=== PATIENT | male | born 1970 | race Caucasian/White ===

== ENCOUNTER 2022-08-19 16:12 | Inpatient (IN) | payer OTHER ==
[2022-08-19 16:55] VITALS: BMI 25.1
[2022-08-19] MEDS ORDERED: LIDOCAINE 5% TOPICAL PATCH TP ONE (18:05)
[2022-08-19] MEDS ORDERED: LIDOCAINE 5% TOPICAL PATCH ONE (18:11)
[2022-08-19] MEDS ORDERED: chlordiazePOXIDE HCL 25 MG CAPSULE PO ONE (18:30)
[2022-08-19 18:43] LABS: BASO % 0.9 % (0-2.0); EOS % 0.3 % (0-4.5); HEMATOCRIT 31.4 % (35.4-49); HEMOGLOBIN 10.8 GM/dL (11.7-16.9); LYMPH % 30.2 % (8-40); MCH 35.1 pg (25.7-33.7); MCHC 34.4 g/dl (32.0-35.9); MEAN PLT VOLUME 7.7 fl (7.5-11.1); MONO % 6.7 % (3.8-10.2); NEUT % 61.9 % (42.8-82.8); PLATELET COUNT 262 10^3/uL (134-434); RBC 3.07 M/mm3 (4.00-5.60); WHITE BLOOD COUNT 11.9 K/mm3 (4.0-10.0)
[2022-08-19 18:59] LABS: INR 1.33 (0.83-1.09); PROTHROMBIN TIME (PATIENT) 15.3 SEC (9.7-13.0)
[2022-08-19 19:02] LABS: ACTIVATED PTT 29.7 SECONDS (25.2-36.5)
[2022-08-19 19:02] LABS: CHLORIDE 97 mmol/L (98-107); SODIUM 131 mmol/L (136-145)
[2022-08-19 19:04] LABS: CALCIUM 8.1 mg/dL (8.5-10.1)
[2022-08-19 19:05] LABS: ANION GAP 11 MMOL/L (8-16); BLOOD UREA NITROGEN 15.1 mg/dL (7-18); CO2 23 mmol/L (21-32); GLUCOSE,RANDOM 88 mg/dL (74-106)
[2022-08-19] MEDS ORDERED: FOLIC ACID INJECTION - 1 MG, THIAMINE HCL 100 MG, MULTIVIT INJECTION ADULT 10 ML in SOD... IVPB ONE (19:05)
[2022-08-19 19:07] LABS: BILIRUBIN,DIRECT 15.5 mg/dL (0.0-0.2)
[2022-08-19 19:08] LABS: CREATININE 0.7 mg/dL (0.55-1.3); SGOT/AST 173 U/L (15-37); SGPT/ALT 71 U/L (13-61)
[2022-08-19 19:09] LABS: TOT PROT 5.4 g/dl (6.4-8.2)
[2022-08-19 19:10] LABS: ALK PHOS 380 U/L (45-117)
[2022-08-19 20:12] LABS: LIPASE 223 U/L (73-393)
[2022-08-20 00:06] LABS: ANISOCYTOSIS 1+
[2022-08-20 00:07] LABS: MACROCYTOSIS 1+; PLATELET ESTIMATE NORMAL
[2022-08-20] MEDS ORDERED: diazePAM 5 MG TABLET PO PRN (01:02)
[2022-08-20] MEDS: LIDOCAINE PATCH REMOVAL MC SCH ×2 (01:04→22:37)
[2022-08-20] MEDS ORDERED: SODIUM CHLORIDE 1,000 ML IV SCH (01:30)
[2022-08-20] MEDS ORDERED: LIDOCAINE 5% TOPICAL PATCH ONE (02:17)
[2022-08-20] MEDS: LORazepam 2 MG/ML SDV VIAL IVPUSH SCH ×3 (02:32→10:03)
[2022-08-20 03:14] LABS: SGOT/AST 173 U/L (15-37); SGPT/ALT 69 U/L (13-61)
[2022-08-20 03:15] LABS: TOT PROT 5.3 g/dl (6.4-8.2)
[2022-08-20 03:17] LABS: ALK PHOS 371 U/L (45-117)
[2022-08-20 03:26] LABS: BILIRUBIN,TOTAL 18.1 mg/dL (0.2-1)
[2022-08-20] MEDS ORDERED: diazePAM 5 MG TABLET ONE ×3 (04:06→19:08)
[2022-08-20] MEDS: diazePAM 5 MG TABLET PO SCH ×4 (05:01→23:57)
[2022-08-20] MEDS: HEPARIN NA (PORCINE) 5,000 UNITS/ML 1ML VIAL SQ SCH ×3 (06:02→22:37)
[2022-08-20] MEDS ORDERED: HEPARIN NA (PORCINE) 5,000 UNITS/ML 1ML VIAL ONE ×2 (06:08→14:11)
[2022-08-20 07:20] LABS: CHLORIDE 100 mmol/L (98-107); SODIUM 135 mmol/L (136-145)
[2022-08-20 07:22] LABS: ANION GAP 11 MMOL/L (8-16); CALCIUM 7.7 mg/dL (8.5-10.1); CO2 23 mmol/L (21-32)
[2022-08-20 07:23] LABS: ALBUMIN 1.9 g/dl (3.4-5.0); BLOOD UREA NITROGEN 12.8 mg/dL (7-18); GLUCOSE,RANDOM 79 mg/dL (74-106); HEMOGLOBIN 10.5 GM/dL (11.7-16.9); MCH 35.8 pg (25.7-33.7); MEAN CELL VOLUME 102.3 fl (80-96); MEAN PLT VOLUME 7.8 fl (7.5-11.1); PLATELET COUNT 265 10^3/uL (134-434); RBC 2.93 M/mm3 (4.00-5.60); RDW 16.6 % (11.9-15.9)
[2022-08-20 07:25] LABS: BILIRUBIN,DIRECT 15.2 mg/dL (0.0-0.2); SGPT/ALT 70 U/L (13-61)
[2022-08-20 07:26] LABS: CREATININE 0.6 mg/dL (0.55-1.3); SGOT/AST 163 U/L (15-37)
[2022-08-20 07:27] LABS: TOT PROT 5.1 g/dl (6.4-8.2)
[2022-08-20 07:28] LABS: ALK PHOS 357 U/L (45-117)
[2022-08-20] MEDS ORDERED: KCL 10 MEQ IVPB 10 MEQ/100 ML INFUS.BAG IVPB SCH (07:30)
[2022-08-20 08:07] LABS: BILIRUBIN,TOTAL 18.8 mg/dL (0.2-1)
[2022-08-20] MEDS ORDERED: THIAMINE HCL 100 MG TABLET (FP) ONE (09:57)
[2022-08-20] MEDS ORDERED: FOLIC ACID 1 MG TABLET (FP) ONE (09:58)
[2022-08-20] MEDS ORDERED: FOLIC ACID 1 MG TABLET (FP) PO SCH (10:00)
[2022-08-20] MEDS ORDERED: THIAMINE HCL 100 MG TABLET (FP) PO SCH (10:00)
[2022-08-20] MEDS: POTASSIUM CHLORIDE TABS 20 MEQ TABLET.ER (FP) PO SCH ×2 (10:13→19:07)
[2022-08-20] MEDS ORDERED: LORazepam 2 MG/ML SDV VIAL IVPUSH PRN (10:13)
[2022-08-20] MEDS ORDERED: POTASSIUM CHLORIDE TABS 20 MEQ TABLET.ER (FP) PO ONE ×2 (10:15→19:08)
[2022-08-20 10:27] LABS: ANISOCYTOSIS 1+; MACROCYTOSIS 1+
[2022-08-20 11:20] LABS: INR 1.46 (0.83-1.09); PROTHROMBIN TIME (PATIENT) 16.9 SEC (9.7-13.0)
[2022-08-21] MEDS: diazePAM 5 MG TABLET PO SCH ×3 (05:39→21:23)
[2022-08-21] MEDS: HEPARIN NA (PORCINE) 5,000 UNITS/ML 1ML VIAL SQ SCH ×3 (05:40→21:20)
[2022-08-21 08:32] LABS: INR 1.4 (0.83-1.09); PROTHROMBIN TIME (PATIENT) 16.2 SEC (9.7-13.0)
[2022-08-21 08:33] LABS: ACTIVATED PTT 33.2 SECONDS (25.2-36.5); HEMATOCRIT 25.9 % (35.4-49); HEMOGLOBIN 9.3 GM/dL (11.7-16.9); MCH 36.9 pg (25.7-33.7); MCHC 35.8 g/dl (32.0-35.9); MEAN CELL VOLUME 103.2 fl (80-96); MEAN PLT VOLUME 7.8 fl (7.5-11.1); PLATELET COUNT 242 10^3/uL (134-434); RBC 2.51 M/mm3 (4.00-5.60); RDW 16.2 % (11.9-15.9); WHITE BLOOD COUNT 8.6 K/mm3 (4.0-10.0)
[2022-08-21 08:37] LABS: CHLORIDE 102 mmol/L (98-107); SODIUM 131 mmol/L (136-145)
[2022-08-21 08:39] LABS: CALCIUM 7.6 mg/dL (8.5-10.1)
[2022-08-21 08:40] LABS: ALBUMIN 1.6 g/dl (3.4-5.0); ANION GAP 7 MMOL/L (8-16); BLOOD UREA NITROGEN 8.4 mg/dL (7-18); CO2 23 mmol/L (21-32); GLUCOSE,RANDOM 101 mg/dL (74-106); IRON SERUM 85 ug/dL (50-175); TOTAL IRON BINDING CAPACITY 144 ug/dL (250-450)
[2022-08-21 08:43] LABS: CREATININE 0.5 mg/dL (0.55-1.3); PHOSPHOROUS 1.8 mg/dL (2.5-4.9); SGOT/AST 125 U/L (15-37); SGPT/ALT 59 U/L (13-61)
[2022-08-21 08:44] LABS: TOT PROT 4.4 g/dl (6.4-8.2)
[2022-08-21 08:57] LABS: ALK PHOS 295 U/L (45-117); BILIRUBIN,TOTAL 17.5 mg/dL (0.2-1)
[2022-08-21] MEDS: THIAMINE HCL 200 MG/2 ML VIAL IVPB SCH (09:45)
[2022-08-21] MEDS: MULTIVITAMINS (DAILY MVI) TABLET (FP) PO SCH (09:45)
[2022-08-21] MEDS ORDERED: SODIUM CHLORIDE 1,000 ML IV SCH (12:00)
[2022-08-21] MEDS ORDERED: KCL 10 MEQ IVPB 10 MEQ/100 ML INFUS.BAG IVPB SCH (12:30)
[2022-08-21] MEDS ORDERED: ACETAMINOPHEN 325 MG TABLET (FP) PO PRN (17:12)
[2022-08-21] MEDS: LIDOCAINE PATCH REMOVAL MC SCH (21:20)
[2022-08-21] MEDS ORDERED: POTASSIUM CHLORIDE ORAL LIQUID 20 MEQ/15 ML PO ONE (22:22)
[2022-08-22] MEDS: diazePAM 5 MG TABLET PO SCH ×2 (05:16→17:03)
[2022-08-22] MEDS: HEPARIN NA (PORCINE) 5,000 UNITS/ML 1ML VIAL SQ SCH ×3 (05:17→21:58)
[2022-08-22 09:55] LABS: HEMOGLOBIN 10.6 GM/dL (11.7-16.9); MCH 36.9 pg (25.7-33.7); MCHC 35.4 g/dl (32.0-35.9); MEAN CELL VOLUME 104.1 fl (80-96); PLATELET COUNT 286 10^3/uL (134-434); RBC 2.88 M/mm3 (4.00-5.60); RDW 16.3 % (11.9-15.9); WHITE BLOOD COUNT 10.6 K/mm3 (4.0-10.0)
[2022-08-22 10:14] LABS: CHLORIDE 98 mmol/L (98-107); SODIUM 132 mmol/L (136-145)
[2022-08-22 10:19] LABS: CALCIUM 7.8 mg/dL (8.5-10.1)
[2022-08-22 10:20] LABS: ALBUMIN 1.8 g/dl (3.4-5.0); ANION GAP 12 MMOL/L (8-16); BLOOD UREA NITROGEN 6.2 mg/dL (7-18); CO2 22 mmol/L (21-32); GLUCOSE,RANDOM 83 mg/dL (74-106); MAGNESIUM 2.1 mg/dL (1.8-2.4)
[2022-08-22 10:23] LABS: CREATININE 0.5 mg/dL (0.55-1.3); SGOT/AST 136 U/L (15-37); SGPT/ALT 65 U/L (13-61)
[2022-08-22 10:25] LABS: TOT PROT 5.2 g/dl (6.4-8.2)
[2022-08-22 10:28] LABS: ALK PHOS 326 U/L (45-117); BILIRUBIN,TOTAL 21.5 mg/dL (0.2-1)
[2022-08-22] MEDS: THIAMINE HCL 200 MG/2 ML VIAL IVPB SCH (10:32)
[2022-08-22] MEDS: MULTIVITAMINS (DAILY MVI) TABLET (FP) PO SCH (10:32)
[2022-08-22 10:49] LABS: INR 1.6 (0.83-1.09); PROTHROMBIN TIME (PATIENT) 18.5 SEC (9.7-13.0)
[2022-08-22 10:52] LABS: ANISOCYTOSIS 2+; MACROCYTOSIS 2+
[2022-08-22 14:56] LABS: HIV INTERPRETATION NEGATIVE (NEGATIVE)
[2022-08-22] MEDS ORDERED: ACETYLCYSTEINE INJECTION 20% 12,200 MG in DEXTROSE 5%-WATER - 250 ML IVPB ONE (15:30)
[2022-08-22] MEDS ORDERED: ACETYLCYSTEINE IVPB ONE ×2 (16:30→20:30)
[2022-08-22] MEDS ORDERED: WATER IVPB ONE ×2 (16:30→20:30)
[2022-08-22] MEDS ORDERED: DEXTROSE 5% IVPB ONE ×2 (16:30→20:30)
[2022-08-22] MEDS: LIDOCAINE PATCH REMOVAL MC SCH (21:58)
[2022-08-23] MEDS ORDERED: diazePAM 5 MG TABLET PO ONE (06:00)
[2022-08-23] MEDS: HEPARIN NA (PORCINE) 5,000 UNITS/ML 1ML VIAL SQ SCH ×2 (06:15→14:24)
[2022-08-23 09:01] LABS: HEMATOCRIT 28.5 % (35.4-49); MCH 36.8 pg (25.7-33.7); MEAN CELL VOLUME 105.1 fl (80-96); MEAN PLT VOLUME 8.1 fl (7.5-11.1); PLATELET COUNT 260 10^3/uL (134-434); RBC 2.71 M/mm3 (4.00-5.60); RDW 16.1 % (11.9-15.9); WHITE BLOOD COUNT 9.9 K/mm3 (4.0-10.0)
[2022-08-23 09:18] LABS: CHLORIDE 99 mmol/L (98-107); SODIUM 134 mmol/L (136-145)
[2022-08-23 09:21] LABS: ALBUMIN 1.6 g/dl (3.4-5.0); ANION GAP 13 MMOL/L (8-16); BLOOD UREA NITROGEN 5.9 mg/dL (7-18); CO2 22 mmol/L (21-32); GLUCOSE,RANDOM 76 mg/dL (74-106); MAGNESIUM 2.1 mg/dL (1.8-2.4)
[2022-08-23 09:24] LABS: CREATININE 0.5 mg/dL (0.55-1.3); SGOT/AST 109 U/L (15-37); SGPT/ALT 60 U/L (13-61)
[2022-08-23] MEDS: THIAMINE HCL 200 MG/2 ML VIAL IVPB SCH (09:24)
[2022-08-23] MEDS: MULTIVITAMINS (DAILY MVI) TABLET (FP) PO SCH (09:24)
[2022-08-23 09:25] LABS: TOT PROT 4.7 g/dl (6.4-8.2)
[2022-08-23 09:30] LABS: ALK PHOS 266 U/L (45-117); BILIRUBIN,TOTAL 18.4 mg/dL (0.2-1)
[2022-08-23 09:51] LABS: INR 1.91 (0.83-1.09); PROTHROMBIN TIME (PATIENT) 22.1 SEC (9.7-13.0)
[2022-08-23] MEDS ORDERED: POTASSIUM CHLORIDE TABS 20 MEQ TABLET.ER (FP) PO ONE ×3 (10:06→15:00)
[2022-08-23 10:28] LABS: ANISOCYTOSIS 2+; MACROCYTOSIS 2+
[2022-08-23] MEDS ORDERED: PHYTONADIONE 10 MG/1 ML AMP IVPB ONE (13:40)
[2022-08-23] MEDS ORDERED: SIMETHICONE 80 MG TAB.CHEW (FP) PO PRN (13:56)
[2022-08-23] MEDS ORDERED: LORazepam 2 MG/ML SDV VIAL IVPUSH PRN (17:01)
[2022-08-23 18:52] LABS: HEPATITIS B SURFACE AG CONFIRM CONFIRMED (NONREACTIVE)
[2022-08-23] MEDS: IBUPROFEN 600 MG TABLET (FP) PO PRN (20:52)
[2022-08-23] MEDS ORDERED: LIDOCAINE PATCH REMOVAL MC SCH (22:00)
[2022-08-24 08:20] LABS: INR 1.55 (0.83-1.09); PROTHROMBIN TIME (PATIENT) 17.9 SEC (9.7-13.0)
[2022-08-24 08:26] LABS: HEMATOCRIT 28.7 % (35.4-49); HEMOGLOBIN 9.9 GM/dL (11.7-16.9); MCH 37.3 pg (25.7-33.7); MCHC 34.5 g/dl (32.0-35.9); MEAN CELL VOLUME 107.9 fl (80-96); MEAN PLT VOLUME 7.6 fl (7.5-11.1); PLATELET COUNT 255 10^3/uL (134-434); RBC 2.66 M/mm3 (4.00-5.60); RDW 16.2 % (11.9-15.9); WHITE BLOOD COUNT 8.6 K/mm3 (4.0-10.0)
[2022-08-24 08:28] LABS: CHLORIDE 103 mmol/L (98-107); SODIUM 135 mmol/L (136-145)
[2022-08-24 08:30] LABS: ALBUMIN 1.5 g/dl (3.4-5.0)
[2022-08-24 08:33] LABS: CALCIUM 7.7 mg/dL (8.5-10.1)
[2022-08-24 08:34] LABS: ALBUMIN 1.5 g/dl (3.4-5.0); ANION GAP 8 MMOL/L (8-16); BILIRUBIN,DIRECT 13.8 mg/dL (0.0-0.2); BLOOD UREA NITROGEN 10.2 mg/dL (7-18); CO2 25 mmol/L (21-32); GLUCOSE,RANDOM 96 mg/dL (74-106); MAGNESIUM 2.1 mg/dL (1.8-2.4); SGOT/AST 102 U/L (15-37); SGPT/ALT 57 U/L (13-61)
[2022-08-24 08:36] LABS: TOT PROT 4.5 g/dl (6.4-8.2)
[2022-08-24 08:37] LABS: ALK PHOS 245 U/L (45-117); CREATININE 0.6 mg/dL (0.55-1.3); SGOT/AST 104 U/L (15-37); SGPT/ALT 59 U/L (13-61)
[2022-08-24 08:38] LABS: TOT PROT 4.6 g/dl (6.4-8.2)
[2022-08-24 08:39] LABS: ALK PHOS 251 U/L (45-117)
[2022-08-24 08:43] LABS: BILIRUBIN,TOTAL 17.2 mg/dL (0.2-1)
[2022-08-24 09:34] LABS: ANISOCYTOSIS 2+; MACROCYTOSIS 2+; TARGET CELLS 1+
[2022-08-24 09:47] LABS: COCAINE, UR NEGATIVE (NEGATIVE); METHADONE, UR NEGATIVE (NEGATIVE); OPIATES, URI NEGATIVE (NEGATIVE); PHENCYCLIDINE,URINE NEGATIVE (NEGATIVE); URINE AMPHETAMINES NEGATIVE (NEGATIVE); URINE BARBITURATES NEGATIVE (NEGATIVE)
[2022-08-24 09:49] LABS: URINE BENZODIAZEPINES POSITIVE (NEGATIVE)
[2022-08-24] MEDS: THIAMINE HCL 200 MG/2 ML VIAL IVPB SCH (10:00)
[2022-08-24] MEDS: MULTIVITAMINS (DAILY MVI) TABLET (FP) PO SCH (10:05)
[2022-08-24] MEDS: METOCLOPRAMIDE HCL 10 MG TABLET (FP) PO SCH ×2 (15:32→21:51)
[2022-08-24] MEDS: IBUPROFEN 600 MG TABLET (FP) PO PRN (15:32)
[2022-08-24 16:03] VITALS: RESP 18
[2022-08-24 17:59] LABS: BF WBC & OTHER NUCLEATED CELLS 117 /mm3
[2022-08-24 18:24] LABS: BODY FLUID MACROPHAGES 7 %; BODY FLUID MESOTHELIAL 2 %; BODY FLUID MONOCYTE 29 %
[2022-08-24] MEDS: SPIRONOLACTONE 25 MG TABLET PO SCH (21:51)
[2022-08-25] MEDS: METOCLOPRAMIDE HCL 10 MG TABLET (FP) PO SCH (06:31)
[2022-08-25] MEDS: SPIRONOLACTONE 25 MG TABLET PO SCH ×2 (09:46→21:18)
[2022-08-25] MEDS: MULTIVITAMINS (DAILY MVI) TABLET (FP) PO SCH (09:47)
[2022-08-25] MEDS: ENOXAPARIN NA (PORCINE) 40 MG/0.4 ML DISP.SYRIN SQ SCH (09:48)
[2022-08-25] MEDS: THIAMINE HCL 200 MG/2 ML VIAL IVPB SCH (09:50)
[2022-08-25] MEDS: POLYETHYLENE GLYCOL (HEALTHYLAX) 3350 17 GM PACKET PO SCH ×2 (11:40→21:17)
[2022-08-25 12:22] LABS: HEMATOCRIT 33.6 % (35.4-49); HEMOGLOBIN 11.6 GM/dL (11.7-16.9); MCH 37.2 pg (25.7-33.7); MCHC 34.5 g/dl (32.0-35.9); MEAN CELL VOLUME 107.8 fl (80-96); MEAN PLT VOLUME 7.7 fl (7.5-11.1); PLATELET COUNT 359 10^3/uL (134-434); RBC 3.12 M/mm3 (4.00-5.60); RDW 15.7 % (11.9-15.9); WHITE BLOOD COUNT 10.6 K/mm3 (4.0-10.0)
[2022-08-25 12:25] LABS: INR 1.59 (0.83-1.09); PROTHROMBIN TIME (PATIENT) 18.4 SEC (9.7-13.0)
[2022-08-25 12:41] LABS: CHLORIDE 100 mmol/L (98-107); SODIUM 134 mmol/L (136-145)
[2022-08-25 12:44] LABS: ALBUMIN 1.8 g/dl (3.4-5.0); ANION GAP 11 MMOL/L (8-16); BLOOD UREA NITROGEN 12.2 mg/dL (7-18); CO2 23 mmol/L (21-32); GLUCOSE,RANDOM 98 mg/dL (74-106)
[2022-08-25 12:47] LABS: BILIRUBIN,DIRECT 14.5 mg/dL (0.0-0.2); CREATININE 0.6 mg/dL (0.55-1.3); SGOT/AST 129 U/L (15-37); SGPT/ALT 70 U/L (13-61)
[2022-08-25 12:49] LABS: TOT PROT 5.6 g/dl (6.4-8.2)
[2022-08-25 12:50] LABS: ALK PHOS 295 U/L (45-117); BILIRUBIN,TOTAL 17.5 mg/dL (0.2-1)
[2022-08-25 12:53] LABS: ANISOCYTOSIS 2+; MACROCYTOSIS 2+
[2022-08-25] MEDS: PrednisoLONE 15 MG/5 ML UNIT-DOSE CUP PO SCH (17:11)
[2022-08-26] MEDS ORDERED: LORazepam 2 MG/ML SDV VIAL IVPUSH ONE (00:12)
[2022-08-26] MEDS: POLYETHYLENE GLYCOL (HEALTHYLAX) 3350 17 GM PACKET PO SCH (09:43)
[2022-08-26] MEDS: MULTIVITAMINS (DAILY MVI) TABLET (FP) PO SCH (09:43)
[2022-08-26] MEDS: ENOXAPARIN NA (PORCINE) 40 MG/0.4 ML DISP.SYRIN SQ SCH (09:43)
[2022-08-26] MEDS: SPIRONOLACTONE 25 MG TABLET PO SCH (09:43)
[2022-08-26 09:44] LABS: HEMATOCRIT 31.9 % (35.4-49); MCH 37.2 pg (25.7-33.7); MCHC 34.5 g/dl (32.0-35.9); MEAN CELL VOLUME 107.9 fl (80-96); MEAN PLT VOLUME 7.9 fl (7.5-11.1); PLATELET COUNT 351 10^3/uL (134-434); RBC 2.95 M/mm3 (4.00-5.60); RDW 15.7 % (11.9-15.9); WHITE BLOOD COUNT 12.6 K/mm3 (4.0-10.0)
[2022-08-26] MEDS: THIAMINE HCL 200 MG/2 ML VIAL IVPB SCH (09:44)
[2022-08-26] MEDS: PrednisoLONE 15 MG/5 ML UNIT-DOSE CUP PO SCH (09:44)
[2022-08-26 09:47] LABS: INR 1.57 (0.83-1.09); PROTHROMBIN TIME (PATIENT) 18.1 SEC (9.7-13.0)
[2022-08-26 09:50] VITALS: PULSE 91; TEMP 98.6
[2022-08-26] MEDS ORDERED: predniSONE 20 MG TABLET (UD) PO SCH (10:00)
[2022-08-26 10:45] LABS: BLOOD UREA NITROGEN 11.8 mg/dL (7-18)
[2022-08-26 10:46] LABS: ALBUMIN 1.8 g/dl (3.4-5.0)
[2022-08-26 10:50] LABS: BILIRUBIN,TOTAL 14.7 mg/dL (0.2-1); TOT PROT 5.7 g/dl (6.4-8.2)
[2022-08-26 10:51] LABS: CREATININE 0.5 mg/dL (0.55-1.3)
[2022-08-26 14:07] LABS: BODY FLUID ALBUMIN 0.4 g/dL (Not Estab.)
[2022-08-26 15:02] VITALS: BP 135/75
== END 2022-08-26 13:15 | disposition short-term general hospital (02) | DRG 264 ==
LOC: JER 16:12 → JERBED 19:48 → J4S 08-20 20:03 → J7W 08-23 15:10
PROVIDERS: ADMIT Internal Medicine; ATTEND Internal Medicine
PROC: HZ2ZZZZ Detoxification Services for Substance Abuse Treatment (ICD-10-PCS; principal; 2022-08-24)
PROC: 0W9G3ZX Drainage of Peritoneal Cavity, Percutaneous Approach, Diagnostic (ICD-10-PCS; 2022-08-24)
DX: K70.11 Alcoholic hepatitis with ascites (principal); K70.31 Alcoholic cirrhosis of liver with ascites; I44.7 Left bundle-branch block, unspecified; F10.239 Alcohol dependence with withdrawal, unspecified; K80.20 Calculus of gallbladder without cholecystitis without obstruction; I10 Essential (primary) hypertension; E78.5 Hyperlipidemia, unspecified; K76.82 Hepatic encephalopathy; F39 Unspecified mood [affective] disorder; D64.9 Anemia, unspecified; R00.0 Tachycardia, unspecified; R91.1 Solitary pulmonary nodule
CPT/HCPCS: 0241U-QW; 36415; 70450-TC; 71046-TC-FY; 72125-TC; 72170-TC-FY; 74178-TC; 76705-TC; 76942-TC; 80048; 80053; 80076; 80307; 82042; 82105; 82140; 82150; 82248; 82465; 82607; 82728; 82746; 82945; 83540; 83550; 83615; 83690; 83735; 83986; 84100; 84157; 84478; 84484; 85025; 85027; 85610; 85730; 86140; 86704; 86705; 86707; 86709; 86803; 87040; 87070; 87075; 87102; 87116; 87205; 87206; 87210; 87340; 87350; 87389; 87516; 87517; 88108; 88305-TC; 93005; 93010; 93306-TC; 99285-25; C9803-CS; J1644; Q9967; U0003; U0005

== ENCOUNTER 2023-01-25 19:06 | Observation (INO) | payer OTHER ==
[2023-01-25] MEDS ORDERED: MAG HYDROX/AL HYDROX/SIMETH 30 ML UNIT-DOSE CUP PO ONE (20:38)
[2023-01-25] MEDS ORDERED: FAMOTIDINE 20 MG/50 ML IVPB 20 MG/50 ML MG IVPB ONE ×2 (20:38→21:06)
[2023-01-25] MEDS ORDERED: FOLIC ACID INJECTION - 1 MG, THIAMINE HCL 100 MG, MULTIVIT INJECTION ADULT 10 ML in SOD... IVPB ONE (20:40)
[2023-01-25] MEDS ORDERED: MAG HYDROX/AL HYDROX/SIMETH 30 ML UNIT-DOSE CUP ONE (21:06)
[2023-01-25 21:12] LABS: BASO % 1.2 % (0-2.0); EOS % 1.3 % (0-4.5); HEMATOCRIT 45.7 % (35.4-49); HEMOGLOBIN 15.5 GM/dL (11.7-16.9); LYMPH % 40.5 % (8-40); MCH 32.1 pg (25.7-33.7); MCHC 33.8 g/dl (32.0-35.9); MEAN CELL VOLUME 94.9 fl (80-96); MEAN PLT VOLUME 6.8 fl (7.5-11.1); MONO % 8.2 % (3.8-10.2); NEUT % 48.8 % (42.8-82.8); PLATELET COUNT 216 10^3/uL (134-434); RBC 4.82 M/mm3 (4.00-5.60)
[2023-01-25 21:27] LABS: INR 1.17 (0.83-1.09); PROTHROMBIN TIME (PATIENT) 13.5 SEC (9.7-13.0)
[2023-01-25 21:30] LABS: ACTIVATED PTT 32.3 SECONDS (25.2-36.5)
[2023-01-25 21:41] LABS: POTASSIUM 3.4 mmol/L (3.5-5.1)
[2023-01-25 21:44] LABS: ALBUMIN 2.3 g/dl (3.4-5.0); BLOOD UREA NITROGEN 4.4 mg/dL (7-18); CALCIUM 8.3 mg/dL (8.5-10.1); MAGNESIUM 1.9 mg/dL (1.8-2.4)
[2023-01-25 21:47] LABS: CREATININE 0.7 mg/dL (0.55-1.3); PHOSPHOROUS 3.5 mg/dL (2.5-4.9)
[2023-01-25 21:49] LABS: BILIRUBIN,TOTAL 0.7 mg/dL (0.2-1); TOT PROT 6.8 g/dl (6.4-8.2)
[2023-01-25 22:35] LABS: URINE APPEARANCE CLEAR; URINE BILIRUBIN NEGATIVE (NEGATIVE); URINE COLOR YELLOW; URINE GLUCOSE (UA) NEGATIVE (NEGATIVE); URINE KETONE NEGATIVE (NEGATIVE); URINE LEUK ESTERASE NEGATIVE (NEGATIVE); URINE NITRITE NEGATIVE (NEGATIVE); URINE PROTEIN NEGATIVE (NEGATIVE)
[2023-01-25] MEDS ORDERED: LORazepam 1 MG TABLET PO PRN (23:52)
[2023-01-25] MEDS ORDERED: ACETAMINOPHEN 325 MG TABLET (FP) PO PRN (23:54)
[2023-01-26] MEDS ORDERED: POTASSIUM CHLORIDE TABS 20 MEQ TABLET.ER (FP) PO ONE (00:48)
[2023-01-26] MEDS ORDERED: FUROSEMIDE 40 MG/4 ML INJECTABLE VIAL IVPUSH ONE (01:25)
[2023-01-26 03:50] VITALS: BMI 25.2
[2023-01-26 08:46] LABS: OPIATES, URI NEGATIVE (NEGATIVE); PHENCYCLIDINE,URINE NEGATIVE (NEGATIVE); URINE BARBITURATES NEGATIVE (NEGATIVE)
[2023-01-26 08:48] LABS: URINE AMPHETAMINES NEGATIVE (NEGATIVE); URINE BENZODIAZEPINES NEGATIVE (NEGATIVE)
[2023-01-26 08:50] LABS: COCAINE, UR NEGATIVE (NEGATIVE); METHADONE, UR NEGATIVE (NEGATIVE)
[2023-01-26] MEDS: FOLIC ACID 1 MG TABLET (FP) PO SCH (09:16)
[2023-01-26] MEDS: FUROSEMIDE 40 MG TABLET (FP) PO SCH (09:16)
[2023-01-26] MEDS: NICOTINE 14 MG/24 HOURS TOPICAL PATCH TD SCH (09:16)
[2023-01-26] MEDS: THIAMINE HCL 100 MG TABLET (FP) PO SCH (09:16)
[2023-01-26] MEDS: SPIRONOLACTONE 25 MG TABLET PO SCH (09:16)
[2023-01-26 10:12] LABS: HEMATOCRIT 45.2 % (35.4-49); HEMOGLOBIN 15.2 GM/dL (11.7-16.9); MCHC 33.6 g/dl (32.0-35.9); MEAN CELL VOLUME 95.3 fl (80-96); MEAN PLT VOLUME 6.7 fl (7.5-11.1); PLATELET COUNT 190 10^3/uL (134-434); RBC 4.74 M/mm3 (4.00-5.60); RDW 15.8 % (11.9-15.9); WHITE BLOOD COUNT 4.7 K/mm3 (4.0-10.0)
[2023-01-26 10:15] LABS: INR 1.19 (0.83-1.09); PROTHROMBIN TIME (PATIENT) 13.8 SEC (9.7-13.0)
[2023-01-26 10:42] LABS: POTASSIUM 3.8 mmol/L (3.5-5.1)
[2023-01-26 10:46] LABS: CALCIUM 8.2 mg/dL (8.5-10.1)
[2023-01-26 10:49] LABS: ALBUMIN 2.1 g/dl (3.4-5.0); MAGNESIUM 1.8 mg/dL (1.8-2.4)
[2023-01-26 10:51] LABS: CREATININE 0.7 mg/dL (0.55-1.3); PHOSPHOROUS 3.7 mg/dL (2.5-4.9); TOT PROT 6.5 g/dl (6.4-8.2)
[2023-01-26 13:39] LABS: BF WBC & OTHER NUCLEATED CELLS 297 /mm3
[2023-01-26 14:13] LABS: BODY FLUID MACROPHAGES 20 %
[2023-01-26] MEDS: ALBUMIN HUMAN 25% 100 ML VIAL IV SCH ×2 (14:54→16:12)
[2023-01-26 15:37] VITALS: RESP 18
[2023-01-27 06:57] VITALS: TEMP 98.7
[2023-01-27] MEDS ORDERED: IBUPROFEN 600 MG TABLET (FP) PO PRN (07:42)
[2023-01-27 09:51] LABS: BASO % 0.6 % (0-2.0); EOS % 2.2 % (0-4.5); HEMATOCRIT 45.2 % (35.4-49); HEMOGLOBIN 15.4 GM/dL (11.7-16.9); LYMPH % 33.5 % (8-40); MCH 32.2 pg (25.7-33.7); MCHC 34.1 g/dl (32.0-35.9); MEAN CELL VOLUME 94.4 fl (80-96); MEAN PLT VOLUME 6.9 fl (7.5-11.1); MONO % 7.6 % (3.8-10.2); NEUT % 56.1 % (42.8-82.8); PLATELET COUNT 166 10^3/uL (134-434); RBC 4.79 M/mm3 (4.00-5.60); RDW 15.7 % (11.9-15.9); WHITE BLOOD COUNT 4.2 K/mm3 (4.0-10.0)
[2023-01-27] MEDS ORDERED: CEFTRIAXONE 1 GM in DEXTROSE 5%-WATER - 50 ML IVPB SCH (10:00)
[2023-01-27 10:07] LABS: POTASSIUM 3.8 mmol/L (3.5-5.1)
[2023-01-27 10:08] LABS: BLOOD UREA NITROGEN 8.9 mg/dL (7-18); CALCIUM 8.6 mg/dL (8.5-10.1); MAGNESIUM 1.7 mg/dL (1.8-2.4)
[2023-01-27] MEDS: THIAMINE HCL 100 MG TABLET (FP) PO SCH (10:08)
[2023-01-27] MEDS: NICOTINE 14 MG/24 HOURS TOPICAL PATCH TD SCH (10:08)
[2023-01-27] MEDS: FOLIC ACID 1 MG TABLET (FP) PO SCH (10:08)
[2023-01-27 10:12] LABS: BILIRUBIN,TOTAL 1.2 mg/dL (0.2-1); CREATININE 0.7 mg/dL (0.55-1.3); PHOSPHOROUS 3.6 mg/dL (2.5-4.9); TOT PROT 6.4 g/dl (6.4-8.2)
[2023-01-27 10:15] LABS: ALBUMIN 2.8 g/dl (3.4-5.0)
[2023-01-27] MEDS: SPIRONOLACTONE 25 MG TABLET PO SCH (10:23)
[2023-01-27] MEDS: FUROSEMIDE 40 MG TABLET (FP) PO SCH (10:23)
[2023-01-27] MEDS ORDERED: MAGNESIUM SULF 50% (8.12 MEQ/2 ML-1 GM VIAL) IVPB ONE (10:26)
[2023-01-27 12:58] VITALS: BP 98/61; PULSE 82
[2023-01-27 14:08] LABS: BODY FLUID ALBUMIN 0.8 g/dL (Not Estab.)
== END 2023-01-27 14:13 | disposition home or self-care (01) ==
LOC: JER 19:06 → JERBED 23:26 → J5S 01-26 01:57
PROVIDERS: ADMIT Internal Medicine; ATTEND Internal Medicine
PROC: 0W9G3ZZ Drainage of Peritoneal Cavity, Percutaneous Approach (ICD-10-PCS; principal; 2023-01-25)
PROC: 3E03329 Introduction of Other Anti-infective into Peripheral Vein, Percutaneous Approach (ICD-10-PCS; 2023-01-25)
PROC: 3E033GC Introduction of Other Therapeutic Substance into Peripheral Vein, Percutaneous Approach (ICD-10-PCS; 2023-01-25)
PROC: 3E023GC Introduction of Other Therapeutic Substance into Muscle, Percutaneous Approach (ICD-10-PCS; 2023-01-25)
DX: R18.8 Other ascites (principal); R14.0 Abdominal distension (gaseous); K74.60 Unspecified cirrhosis of liver; F10.10 Alcohol abuse, uncomplicated; F17.210 Nicotine dependence, cigarettes, uncomplicated; Z91.199 Patient's noncompliance with other medical treatment and regimen due to unspecified reason
CPT/HCPCS: 36415; 74177-TC; 76942-TC; 80053; 80307; 81003; 82042; 82140; 82150; 82550; 82945; 82977; 83605; 83615; 83690; 83735; 83986; 84100; 84157; 84478; 85025; 85027; 85610; 85730; 86850; 86900; 86901; 87070; 87075; 87086; 87102; 87116; 87205; 87206; 87210; 87516; 88108; 88305-TC; 93005; 93010; 96365; 96367; 96375; 97116-GP; 97162-GP; 99285-25; G0378; Q9967

== ENCOUNTER 2023-04-05 20:54 | Emergency (ER) | payer OTHER ==
[2023-04-05 21:06] VITALS: BP 153/100; PULSE 130; TEMP 99.8; BMI 22.3
== END 2023-04-05 22:12 | disposition left against medical advice (07) ==
LOC: JER 20:54
DX: F10.129 Alcohol abuse with intoxication, unspecified (principal); K76.9 Liver disease, unspecified
CPT/HCPCS: 99281-25

== ENCOUNTER 2023-04-06 18:39 | Emergency (ER) | payer OTHER ==
[2023-04-06 19:02] VITALS: BP 128/76; PULSE 94; RESP 18; TEMP 98.1; BMI 26.1
[2023-04-06 21:30] LABS: URINE APPEARANCE CLEAR; URINE BILIRUBIN NEGATIVE (NEGATIVE); URINE COLOR YELLOW; URINE GLUCOSE (UA) NEGATIVE (NEGATIVE); URINE KETONE NEGATIVE (NEGATIVE); URINE LEUK ESTERASE NEGATIVE (NEGATIVE); URINE NITRITE NEGATIVE (NEGATIVE); URINE PROTEIN NEGATIVE (NEGATIVE)
[2023-04-06 21:46] LABS: POTASSIUM 3.4 mmol/L (3.5-5.1)
[2023-04-06 21:48] LABS: CALCIUM 8.1 mg/dL (8.5-10.1)
[2023-04-06 21:49] LABS: ALBUMIN 2.9 g/dl (3.4-5.0); BLOOD UREA NITROGEN 3.4 mg/dL (7-18); MAGNESIUM 1.8 mg/dL (1.8-2.4)
[2023-04-06 21:51] LABS: BASO % 1.1 % (0-2.0); EOS % 0.8 % (0-4.5); HEMOGLOBIN 15.7 GM/dL (11.7-16.9); LYMPH % 46.7 % (8-40); MCH 32.4 pg (25.7-33.7); MCHC 34.2 g/dl (32.0-35.9); MEAN CELL VOLUME 94.9 fl (80-96); MEAN PLT VOLUME 6.5 fl (7.5-11.1); MONO % 8.2 % (3.8-10.2); NEUT % 43.2 % (42.8-82.8); PLATELET COUNT 141 10^3/uL (134-434); RBC 4.84 M/mm3 (4.00-5.60); RDW 14.8 % (11.9-15.9)
[2023-04-06 21:52] LABS: CREATININE 0.6 mg/dL (0.55-1.3)
[2023-04-06 21:53] LABS: BILIRUBIN,TOTAL 0.8 mg/dL (0.2-1); TOT PROT 6.7 g/dl (6.4-8.2)
[2023-04-06] MEDS ORDERED: chlordiazePOXIDE HCL 25 MG CAPSULE PO ONE (22:23)
[2023-04-06] MEDS ORDERED: chlordiazePOXIDE HCL 25 MG CAPSULE ONE (22:34)
== END 2023-04-06 22:44 | disposition home or self-care (01) ==
LOC: JER 18:39
DX: F10.239 Alcohol dependence with withdrawal, unspecified (principal); R10.84 Generalized abdominal pain; R30.0 Dysuria; Y90.7 Blood alcohol level of 200-239 mg/100 ml; Z20.822 Contact with and (suspected) exposure to COVID-19
CPT/HCPCS: 0241U-QW; 36415; 80053; 80307; 81003; 83690; 83735; 85025; 87086; 99283-25

== ENCOUNTER 2023-04-06 23:14 | Inpatient (IN) | payer OTHER ==
[2023-04-07 02:13] VITALS: BMI 21.2
[2023-04-07] MEDS ORDERED: BENZOCAINE/MENTHOL (CHLORASEPTIC ) LOZENGE MM PRN (07:18)
[2023-04-07] MEDS ORDERED: POLYETHYLENE GLYCOL (HEALTHYLAX) 3350 17 GM PACKET PO PRN (07:18)
[2023-04-07] MEDS ORDERED: IBUPROFEN 400 MG TABLET (FP) PO PRN (07:18)
[2023-04-07] MEDS ORDERED: NALOXONE HCL (KLOXXADO) 8 MG SPRAY NS PRN (07:18)
[2023-04-07] MEDS ORDERED: NALOXONE HCL 0.4 MG/ML VIAL IM PRN (07:18)
[2023-04-07] MEDS ORDERED: METHOCARBAMOL 500 MG TABLET PO PRN (07:18)
[2023-04-07] MEDS ORDERED: MAGNESIUM HYDROX 2400MG/30ML ORAL SUSPENSION 30 ML CUP PO PRN (07:18)
[2023-04-07] MEDS ORDERED: ONDANSETRON *ODT* 4 MG TABLET SL PRN (07:18)
[2023-04-07] MEDS ORDERED: guaiFENesin 600 MG TABLET.ER (FP) PO PRN (07:18)
[2023-04-07] MEDS ORDERED: IBUPROFEN 600 MG TABLET (FP) PO PRN (07:18)
[2023-04-07] MEDS ORDERED: BENZONATATE 200 MG CAPSULE PO PRN (07:18)
[2023-04-07] MEDS ORDERED: DICYCLOMINE HCL 10 MG CAPSULE PO PRN (07:18)
[2023-04-07] MEDS ORDERED: BISMUTH SUBSALICYLATE 524 MG/30 ML PO PRN (07:18)
[2023-04-07] MEDS ORDERED: MAG HYDROX/AL HYDROX/SIMETH 30 ML UNIT-DOSE CUP PO PRN (07:18)
[2023-04-07] MEDS ORDERED: LOPERAMIDE HCL 2 MG CAPSULE PO PRN (07:18)
[2023-04-07] MEDS ORDERED: NICOTINE POLACRILEX 2 MG GUM BUC PRN (07:18)
[2023-04-07] MEDS ORDERED: ACETAMINOPHEN 325 MG TABLET (FP) PO PRN (07:18)
[2023-04-07] MEDS ORDERED: LORazepam 1 MG TABLET PO PRN (07:23)
[2023-04-07] MEDS ORDERED: LORazepam 1 MG TABLET ONE (07:39)
[2023-04-07] MEDS: NICOTINE 21 MG/24 HOURS TOPICAL PATCH TD SCH (10:45)
[2023-04-07] MEDS: PRENATAL VITAMINS W/ FOLIC ACID TABLET (FP) PO SCH (10:45)
[2023-04-07] MEDS: LORazepam 2 MG TABLET PO SCH ×3 (10:45→22:55)
[2023-04-07] MEDS ORDERED: NICOTINE 21 MG/24 HOURS TOPICAL PATCH ONE (10:47)
[2023-04-07] MEDS ORDERED: PRENATAL VITAMINS W/ FOLIC ACID TABLET (FP) PO ONE (10:48)
[2023-04-07] MEDS ORDERED: LORazepam 2 MG TABLET ONE (10:48)
[2023-04-07] MEDS: PATIENT'S OWN MEDICATION (NON-FORMULARY) (Tenofovir Alafenamide 25 MG Tablet) PO SCH (20:17)
[2023-04-07] MEDS: MELATONIN 5 MG TABLETS PO SCH (22:54)
[2023-04-07] MEDS: THIAMINE HCL 100 MG TABLET (FP) PO SCH (22:55)
[2023-04-08] MEDS: LORazepam 2 MG TABLET PO SCH ×4 (06:00→22:23)
[2023-04-08 09:43] LABS: POTASSIUM 3.6 mmol/L (3.5-5.1)
[2023-04-08 09:45] LABS: HEMATOCRIT 47.9 % (35.4-49); HEMOGLOBIN 15.8 GM/dL (11.7-16.9); MCH 32.1 pg (25.7-33.7); MEAN CELL VOLUME 97.4 fl (80-96); PLATELET COUNT 130 10^3/uL (134-434); RBC 4.92 M/mm3 (4.00-5.60); RDW 14.8 % (11.9-15.9); WHITE BLOOD COUNT 5.3 K/mm3 (4.0-10.0)
[2023-04-08 10:01] LABS: ALBUMIN 3.2 g/dl (3.4-5.0)
[2023-04-08 10:03] LABS: BILIRUBIN,TOTAL 1.8 mg/dL (0.2-1); CALCIUM 8.4 mg/dL (8.5-10.1); TOT PROT 7.1 g/dl (6.4-8.2)
[2023-04-08 10:04] LABS: CREATININE 0.8 mg/dL (0.55-1.3)
[2023-04-08] MEDS: FOLIC ACID 1 MG TABLET (FP) PO SCH (10:29)
[2023-04-08] MEDS: PRENATAL VITAMINS W/ FOLIC ACID TABLET (FP) PO SCH (10:30)
[2023-04-08] MEDS: NICOTINE 21 MG/24 HOURS TOPICAL PATCH TD SCH (10:30)
[2023-04-08] MEDS: FUROSEMIDE 20 MG TABLET (FP) PO SCH (11:09)
[2023-04-08] MEDS: PATIENT'S OWN MEDICATION (NON-FORMULARY) (Tenofovir Alafenamide 25 MG Tablet) PO SCH (11:29)
[2023-04-08] MEDS ORDERED: SPIRONOLACTONE 25 MG TABLET PO SCH (22:00)
[2023-04-08] MEDS: MELATONIN 5 MG TABLETS PO SCH (22:22)
[2023-04-08] MEDS: THIAMINE HCL 100 MG TABLET (FP) PO SCH (22:23)
[2023-04-09] MEDS: LORazepam 1 MG TABLET PO SCH ×2 (05:55→10:31)
[2023-04-09 09:04] VITALS: RESP 18
[2023-04-09] MEDS ORDERED: CIPROFLOXACIN 500 MG TABLET (RESTRICTED TO ID) PO SCH (09:15)
[2023-04-09] MEDS: PRENATAL VITAMINS W/ FOLIC ACID TABLET (FP) PO SCH (10:28)
[2023-04-09] MEDS: FUROSEMIDE 20 MG TABLET (FP) PO SCH (10:28)
[2023-04-09] MEDS: PATIENT'S OWN MEDICATION (NON-FORMULARY) (Tenofovir Alafenamide 25 MG Tablet) PO SCH (10:28)
[2023-04-09] MEDS: NICOTINE 21 MG/24 HOURS TOPICAL PATCH TD SCH (10:28)
[2023-04-09] MEDS: FOLIC ACID 1 MG TABLET (FP) PO SCH (10:29)
[2023-04-09 12:59] VITALS: BP 105/67; PULSE 93; TEMP 96.9
[2023-04-10] MEDS ORDERED: LORazepam 0.5 MG TABLET PO PRN
[2023-04-10] MEDS ORDERED: LORazepam 0.5 MG TABLET PO SCH (05:00)
[2023-04-11] MEDS ORDERED: LORazepam 0.5 MG TABLET PO ONE (05:00)
== END 2023-04-09 15:43 | disposition left against medical advice (07) | DRG 770 ==
LOC: YASAS 23:14 → Y3N 04-07 10:32
PROVIDERS: ADMIT Allergy & Immunology; ATTEND Surgery
PROC: HZ2ZZZZ Detoxification Services for Substance Abuse Treatment (ICD-10-PCS; principal; 2023-04-07)
DX: F10.230 Alcohol dependence with withdrawal, uncomplicated (principal); F17.210 Nicotine dependence, cigarettes, uncomplicated; F31.9 Bipolar disorder, unspecified; I10 Essential (primary) hypertension; K70.30 Alcoholic cirrhosis of liver without ascites; B18.1 Chronic viral hepatitis B without delta-agent; Z99.89 Dependence on other enabling machines and devices
CPT/HCPCS: 0241U-QW; 36415; 80053; 80307; 81003; 83690; 83735; 85025; 85027; 86593; 86780; 87086; 87635; 87811; 93005; 93010; 99281-25; 99283-25

== ENCOUNTER 2023-06-01 17:19 | Emergency (ER) | payer OTHER ==
[2023-06-01 17:58] VITALS: BMI 22.3
[2023-06-01] MEDS ORDERED: ACETAMINOPHEN 325 MG TABLET (FP) PO ONE (18:46)
[2023-06-01] MEDS ORDERED: ACETAMINOPHEN 325 MG TABLET (FP) ONE (18:46)
[2023-06-01] MEDS ORDERED: chlordiazePOXIDE HCL 25 MG CAPSULE PO ONE (22:10)
[2023-06-01] MEDS ORDERED: chlordiazePOXIDE HCL 25 MG CAPSULE ONE (22:27)
[2023-06-01 23:09] VITALS: BP 126/79; PULSE 88; RESP 16; TEMP 97.9
== END 2023-06-01 23:10 | disposition home or self-care (01) ==
LOC: JER 17:19
DX: R51.9 Headache, unspecified (principal); F10.129 Alcohol abuse with intoxication, unspecified; S09.90XA Unspecified injury of head, initial encounter; Y04.2XXA Assault by strike against or bumped into by another person, initial encounter; Y90.9 Presence of alcohol in blood, level not specified
CPT/HCPCS: 70450-TC

== ENCOUNTER 2023-06-05 01:49 | Inpatient (IN) | payer OTHER ==
[2023-06-05 02:57] VITALS: BMI 21.6
[2023-06-05] MEDS ORDERED: NALOXONE HCL 0.4 MG/ML VIAL IM PRN (05:01)
[2023-06-05] MEDS ORDERED: guaiFENesin 600 MG TABLET.ER (FP) PO PRN (05:01)
[2023-06-05] MEDS ORDERED: NALOXONE HCL (KLOXXADO) 8 MG SPRAY NS PRN (05:01)
[2023-06-05] MEDS ORDERED: BENZOCAINE/MENTHOL (CHLORASEPTIC ) LOZENGE MM PRN (05:01)
[2023-06-05] MEDS ORDERED: LOPERAMIDE HCL 2 MG CAPSULE PO PRN (05:01)
[2023-06-05] MEDS ORDERED: IBUPROFEN 400 MG TABLET (FP) PO PRN (05:01)
[2023-06-05] MEDS ORDERED: POLYETHYLENE GLYCOL (HEALTHYLAX) 3350 17 GM PACKET PO PRN (05:01)
[2023-06-05] MEDS ORDERED: ONDANSETRON *ODT* 4 MG TABLET SL PRN (05:01)
[2023-06-05] MEDS ORDERED: MAG HYDROX/AL HYDROX/SIMETH 30 ML UNIT-DOSE CUP PO PRN (05:01)
[2023-06-05] MEDS ORDERED: BISMUTH SUBSALICYLATE 524 MG/30 ML PO PRN (05:01)
[2023-06-05] MEDS ORDERED: NICOTINE POLACRILEX 4 MG GUM BUC PRN (05:01)
[2023-06-05] MEDS ORDERED: MAGNESIUM HYDROX 2400MG/30ML ORAL SUSPENSION 30 ML CUP PO PRN (05:01)
[2023-06-05] MEDS ORDERED: BENZONATATE 200 MG CAPSULE PO PRN (05:01)
[2023-06-05] MEDS ORDERED: chlordiazePOXIDE HCL 25 MG CAPSULE PO PRN (05:04)
[2023-06-05] MEDS: chlordiazePOXIDE HCL 25 MG CAPSULE PO SCH ×4 (05:30→22:37)
[2023-06-05] MEDS: hydrOXYzine PAMOATE 25 MG CAPSULE (FP) PO PRN (10:08)
[2023-06-05] MEDS: METHOCARBAMOL 500 MG TABLET PO PRN (10:08)
[2023-06-05] MEDS: PRENATAL VITAMINS W/ FOLIC ACID TABLET (FP) PO SCH (10:08)
[2023-06-05] MEDS: FOLIC ACID 1 MG TABLET (FP) PO SCH (10:08)
[2023-06-05] MEDS: NICOTINE 21 MG/24 HOURS TOPICAL PATCH TD SCH (10:09)
[2023-06-05 13:12] LABS: POTASSIUM 3.3 mmol/L (3.5-5.1)
[2023-06-05 13:14] LABS: CALCIUM 8.4 mg/dL (8.5-10.1)
[2023-06-05 13:15] LABS: ALBUMIN 2.9 g/dl (3.4-5.0); BLOOD UREA NITROGEN 5.9 mg/dL (7-18)
[2023-06-05 13:17] LABS: HEMATOCRIT 44.4 % (35.4-49); HEMOGLOBIN 14.7 GM/dL (11.7-16.9); MCH 31.7 pg (25.7-33.7); PLATELET COUNT 91 10^3/uL (134-434); RBC 4.62 M/mm3 (4.00-5.60); RDW 15.6 % (11.9-15.9); WHITE BLOOD COUNT 5.3 K/mm3 (4.0-10.0)
[2023-06-05 13:18] LABS: CREATININE 0.9 mg/dL (0.55-1.3)
[2023-06-05 13:19] LABS: BILIRUBIN,TOTAL 2.4 mg/dL (0.2-1)
[2023-06-05 13:20] LABS: TOT PROT 6.9 g/dl (6.4-8.2)
[2023-06-05] MEDS: ACETAMINOPHEN 325 MG TABLET (FP) PO PRN (15:56)
[2023-06-05] MEDS: SPIRONOLACTONE 25 MG TABLET PO SCH (22:36)
[2023-06-05] MEDS: MELATONIN 5 MG TABLETS PO SCH (22:37)
[2023-06-05] MEDS: THIAMINE HCL 100 MG TABLET (FP) PO SCH (22:37)
[2023-06-06] MEDS: chlordiazePOXIDE HCL 25 MG CAPSULE PO SCH ×4 (05:24→22:30)
[2023-06-06] MEDS: FUROSEMIDE 20 MG TABLET (FP) PO SCH (10:17)
[2023-06-06] MEDS: METHOCARBAMOL 500 MG TABLET PO PRN ×2 (10:17→22:30)
[2023-06-06] MEDS: NICOTINE 21 MG/24 HOURS TOPICAL PATCH TD SCH (10:17)
[2023-06-06] MEDS: PRENATAL VITAMINS W/ FOLIC ACID TABLET (FP) PO SCH (10:17)
[2023-06-06] MEDS: metoPROLOL SUCCINATE 25 MG TAB.SR.24H (FP) PO SCH (10:19)
[2023-06-06] MEDS: FOLIC ACID 1 MG TABLET (FP) PO SCH (10:19)
[2023-06-06] MEDS: TENOFOVIR ALAFENAMIDE 25 MG PO SCH (10:20)
[2023-06-06 11:55] LABS: POTASSIUM 3.7 mmol/L (3.5-5.1)
[2023-06-06 12:18] LABS: BILIRUBIN,TOTAL 2.7 mg/dL (0.2-1)
[2023-06-06 12:19] LABS: ALBUMIN 2.8 g/dl (3.4-5.0); TOT PROT 6.6 g/dl (6.4-8.2)
[2023-06-06 12:20] LABS: CALCIUM 9.5 mg/dL (8.5-10.1)
[2023-06-06 12:21] LABS: BLOOD UREA NITROGEN 5.5 mg/dL (7-18)
[2023-06-06 12:22] LABS: CREATININE 0.7 mg/dL (0.55-1.3)
[2023-06-06] MEDS: DICYCLOMINE HCL 10 MG CAPSULE PO PRN (19:05)
[2023-06-06] MEDS: hydrOXYzine PAMOATE 25 MG CAPSULE (FP) PO PRN (19:06)
[2023-06-06] MEDS: MELATONIN 5 MG TABLETS PO SCH (22:30)
[2023-06-06] MEDS: SPIRONOLACTONE 25 MG TABLET PO SCH (22:30)
[2023-06-06] MEDS: THIAMINE HCL 100 MG TABLET (FP) PO SCH (22:30)
[2023-06-07] MEDS ORDERED: chlordiazePOXIDE HCL 10 MG CAPSULE PO PRN
[2023-06-07] MEDS: IBUPROFEN 600 MG TABLET (FP) PO PRN ×2 (00:35→22:44)
[2023-06-07] MEDS: chlordiazePOXIDE HCL 10 MG CAPSULE PO SCH ×4 (05:25→22:44)
[2023-06-07] MEDS: FUROSEMIDE 20 MG TABLET (FP) PO SCH (11:02)
[2023-06-07] MEDS: NICOTINE 21 MG/24 HOURS TOPICAL PATCH TD SCH (11:02)
[2023-06-07] MEDS: metoPROLOL SUCCINATE 25 MG TAB.SR.24H (FP) PO SCH (11:02)
[2023-06-07] MEDS: PRENATAL VITAMINS W/ FOLIC ACID TABLET (FP) PO SCH (11:02)
[2023-06-07] MEDS: TENOFOVIR ALAFENAMIDE 25 MG PO SCH (11:05)
[2023-06-07] MEDS: FOLIC ACID 1 MG TABLET (FP) PO SCH (11:05)
[2023-06-07] MEDS: DICYCLOMINE HCL 10 MG CAPSULE PO PRN (17:44)
[2023-06-07] MEDS: MELATONIN 5 MG TABLETS PO SCH (22:43)
[2023-06-07] MEDS: THIAMINE HCL 100 MG TABLET (FP) PO SCH (22:44)
[2023-06-07] MEDS: SPIRONOLACTONE 25 MG TABLET PO SCH (22:44)
[2023-06-08] MEDS: chlordiazePOXIDE HCL 10 MG CAPSULE PO SCH ×2 (05:33→17:34)
[2023-06-08] MEDS: PRENATAL VITAMINS W/ FOLIC ACID TABLET (FP) PO SCH (10:51)
[2023-06-08] MEDS: TENOFOVIR ALAFENAMIDE 25 MG PO SCH (10:51)
[2023-06-08] MEDS: FOLIC ACID 1 MG TABLET (FP) PO SCH (10:51)
[2023-06-08] MEDS: FUROSEMIDE 20 MG TABLET (FP) PO SCH (10:51)
[2023-06-08] MEDS: METHOCARBAMOL 500 MG TABLET PO PRN (10:52)
[2023-06-08] MEDS: hydrOXYzine PAMOATE 25 MG CAPSULE (FP) PO PRN (10:52)
[2023-06-08] MEDS: metoPROLOL SUCCINATE 25 MG TAB.SR.24H (FP) PO SCH (10:54)
[2023-06-08] MEDS: NICOTINE 21 MG/24 HOURS TOPICAL PATCH TD SCH (10:57)
[2023-06-08] MEDS: ACETAMINOPHEN 325 MG TABLET (FP) PO PRN (17:38)
[2023-06-08] MEDS: SPIRONOLACTONE 25 MG TABLET PO SCH (22:39)
[2023-06-08] MEDS: MELATONIN 5 MG TABLETS PO SCH (22:39)
[2023-06-08] MEDS: THIAMINE HCL 100 MG TABLET (FP) PO SCH (22:39)
[2023-06-08] MEDS: IBUPROFEN 600 MG TABLET (FP) PO PRN (23:05)
[2023-06-09] MEDS ORDERED: chlordiazePOXIDE HCL 10 MG CAPSULE PO ONE (05:00)
[2023-06-09 06:31] VITALS: PULSE 79
[2023-06-09 09:09] VITALS: BP 105/72; RESP 16; TEMP 98.2
[2023-06-09] MEDS: PRENATAL VITAMINS W/ FOLIC ACID TABLET (FP) PO SCH (09:37)
[2023-06-09] MEDS: FUROSEMIDE 20 MG TABLET (FP) PO SCH (09:37)
[2023-06-09] MEDS: TENOFOVIR ALAFENAMIDE 25 MG PO SCH (09:37)
[2023-06-09] MEDS: metoPROLOL SUCCINATE 25 MG TAB.SR.24H (FP) PO SCH (09:37)
[2023-06-09] MEDS: FOLIC ACID 1 MG TABLET (FP) PO SCH (09:37)
[2023-06-09] MEDS: NICOTINE 21 MG/24 HOURS TOPICAL PATCH TD SCH (09:37)
== END 2023-06-09 09:38 | disposition home or self-care (01) | DRG 775 ==
LOC: YASAS 01:49 → Y6N 05:19
PROVIDERS: ADMIT Allergy & Immunology; ATTEND Surgery
PROC: HZ2ZZZZ Detoxification Services for Substance Abuse Treatment (ICD-10-PCS; principal; 2023-06-05)
DX: F10.230 Alcohol dependence with withdrawal, uncomplicated (principal); F17.210 Nicotine dependence, cigarettes, uncomplicated; E87.6 Hypokalemia; I10 Essential (primary) hypertension; K70.30 Alcoholic cirrhosis of liver without ascites; B18.1 Chronic viral hepatitis B without delta-agent; M41.9 Scoliosis, unspecified; R74.8 Abnormal levels of other serum enzymes; Z86.19 Personal history of other infectious and parasitic diseases; Z99.89 Dependence on other enabling machines and devices
CPT/HCPCS: 36415; 70450-TC; 72125-TC; 80053; 80307; 85027; 86593; 86780; 87635; 93005; 93010; 99281-25; Q0162

== ENCOUNTER 2023-06-14 20:06 | Inpatient (IN) | payer OTHER ==
[2023-06-14 20:58] VITALS: BMI 22.6
[2023-06-14] MEDS ORDERED: IBUPROFEN 600 MG TABLET (FP) PO PRN (22:29)
[2023-06-14] MEDS ORDERED: ONDANSETRON *ODT* 4 MG TABLET SL PRN (22:29)
[2023-06-14] MEDS ORDERED: MAG HYDROX/AL HYDROX/SIMETH 30 ML UNIT-DOSE CUP PO PRN (22:29)
[2023-06-14] MEDS ORDERED: NICOTINE POLACRILEX 2 MG GUM BUC PRN (22:29)
[2023-06-14] MEDS ORDERED: chlordiazePOXIDE HCL 25 MG CAPSULE PO PRN (22:29)
[2023-06-14] MEDS ORDERED: BENZONATATE 200 MG CAPSULE PO PRN (22:29)
[2023-06-14] MEDS ORDERED: BISMUTH SUBSALICYLATE 524 MG/30 ML PO PRN (22:29)
[2023-06-14] MEDS ORDERED: IBUPROFEN 400 MG TABLET (FP) PO PRN (22:29)
[2023-06-14] MEDS ORDERED: MAGNESIUM HYDROX 2400MG/30ML ORAL SUSPENSION 30 ML CUP PO PRN (22:29)
[2023-06-14] MEDS ORDERED: POLYETHYLENE GLYCOL (HEALTHYLAX) 3350 17 GM PACKET PO PRN (22:29)
[2023-06-14] MEDS ORDERED: BENZOCAINE/MENTHOL (CHLORASEPTIC ) LOZENGE MM PRN (22:29)
[2023-06-14] MEDS ORDERED: DICYCLOMINE HCL 10 MG CAPSULE PO PRN (22:29)
[2023-06-14] MEDS ORDERED: LOPERAMIDE HCL 2 MG CAPSULE PO PRN (22:29)
[2023-06-14] MEDS ORDERED: guaiFENesin 600 MG TABLET.ER (FP) PO PRN (22:29)
[2023-06-15] MEDS ORDERED: chlordiazePOXIDE HCL 25 MG CAPSULE ONE (03:12)
[2023-06-15] MEDS: chlordiazePOXIDE HCL 25 MG CAPSULE PO SCH ×5 (03:15→22:08)
[2023-06-15] MEDS: ACETAMINOPHEN 325 MG TABLET (FP) PO PRN (05:42)
[2023-06-15] MEDS: PRENATAL VITAMINS W/ FOLIC ACID TABLET (FP) PO SCH (10:36)
[2023-06-15] MEDS: NICOTINE 14 MG/24 HOURS TOPICAL PATCH TD SCH (10:36)
[2023-06-15] MEDS: MELATONIN 5 MG TABLETS PO SCH (22:07)
[2023-06-15] MEDS: METHOCARBAMOL 500 MG TABLET PO PRN (22:08)
[2023-06-15] MEDS: THIAMINE HCL 100 MG TABLET (FP) PO SCH (22:08)
[2023-06-16] MEDS: chlordiazePOXIDE HCL 25 MG CAPSULE PO SCH ×4 (05:47→22:25)
[2023-06-16] MEDS: ACETAMINOPHEN 325 MG TABLET (FP) PO PRN ×2 (06:15→22:39)
[2023-06-16] MEDS: PRENATAL VITAMINS W/ FOLIC ACID TABLET (FP) PO SCH (10:59)
[2023-06-16] MEDS: NICOTINE 14 MG/24 HOURS TOPICAL PATCH TD SCH (10:59)
[2023-06-16] MEDS: metoPROLOL SUCCINATE 25 MG TAB.SR.24H (FP) PO SCH (12:54)
[2023-06-16] MEDS: METHOCARBAMOL 500 MG TABLET PO PRN (14:00)
[2023-06-16] MEDS: TENOFOVIR ALAFENAMIDE 25 MG PO SCH (14:36)
[2023-06-16] MEDS: THIAMINE HCL 100 MG TABLET (FP) PO SCH (22:26)
[2023-06-16] MEDS: MELATONIN 5 MG TABLETS PO SCH (22:26)
[2023-06-16] MEDS: SPIRONOLACTONE 25 MG TABLET PO SCH (22:28)
[2023-06-17] MEDS ORDERED: chlordiazePOXIDE HCL 10 MG CAPSULE PO PRN
[2023-06-17] MEDS: chlordiazePOXIDE HCL 10 MG CAPSULE PO SCH ×4 (05:38→22:30)
[2023-06-17] MEDS: TENOFOVIR ALAFENAMIDE 25 MG PO SCH (10:23)
[2023-06-17] MEDS: NICOTINE 14 MG/24 HOURS TOPICAL PATCH TD SCH (10:23)
[2023-06-17] MEDS: PRENATAL VITAMINS W/ FOLIC ACID TABLET (FP) PO SCH (10:23)
[2023-06-17] MEDS: metoPROLOL SUCCINATE 25 MG TAB.SR.24H (FP) PO SCH (10:24)
[2023-06-17] MEDS ORDERED: NAPROXEN 500 MG TABLET PO PRN (13:08)
[2023-06-17] MEDS: METHOCARBAMOL 500 MG TABLET PO PRN (22:30)
[2023-06-17] MEDS: SPIRONOLACTONE 25 MG TABLET PO SCH (22:30)
[2023-06-17] MEDS: MELATONIN 5 MG TABLETS PO SCH (22:30)
[2023-06-17] MEDS: THIAMINE HCL 100 MG TABLET (FP) PO SCH (22:30)
[2023-06-18] MEDS: chlordiazePOXIDE HCL 10 MG CAPSULE PO SCH ×2 (05:32→17:22)
[2023-06-18] MEDS: PRENATAL VITAMINS W/ FOLIC ACID TABLET (FP) PO SCH (09:55)
[2023-06-18] MEDS: TENOFOVIR ALAFENAMIDE 25 MG PO SCH (09:55)
[2023-06-18] MEDS: NICOTINE 14 MG/24 HOURS TOPICAL PATCH TD SCH (09:56)
[2023-06-18] MEDS: ACETAMINOPHEN 325 MG TABLET (FP) PO PRN (09:56)
[2023-06-18] MEDS: metoPROLOL SUCCINATE 25 MG TAB.SR.24H (FP) PO SCH (09:57)
[2023-06-18] MEDS: THIAMINE HCL 100 MG TABLET (FP) PO SCH (21:31)
[2023-06-18] MEDS: SPIRONOLACTONE 25 MG TABLET PO SCH (21:31)
[2023-06-18] MEDS: METHOCARBAMOL 500 MG TABLET PO PRN (21:31)
[2023-06-18] MEDS: MELATONIN 5 MG TABLETS PO SCH (21:31)
[2023-06-19] MEDS ORDERED: chlordiazePOXIDE HCL 10 MG CAPSULE PO ONE (05:00)
[2023-06-19 06:50] VITALS: BP 105/66; RESP 18
[2023-06-19 09:06] VITALS: PULSE 73; TEMP 97.6
[2023-06-19] MEDS: metoPROLOL SUCCINATE 25 MG TAB.SR.24H (FP) PO SCH (09:56)
[2023-06-19] MEDS: PRENATAL VITAMINS W/ FOLIC ACID TABLET (FP) PO SCH (09:56)
[2023-06-19] MEDS: TENOFOVIR ALAFENAMIDE 25 MG PO SCH (09:56)
[2023-06-19] MEDS: NICOTINE 14 MG/24 HOURS TOPICAL PATCH TD SCH (09:57)
== END 2023-06-19 10:48 | disposition home or self-care (01) | DRG 775 ==
LOC: YASAS 20:06 → Y3N 06-15 02:43
PROVIDERS: ADMIT Allergy & Immunology; ATTEND Surgery
PROC: HZ2ZZZZ Detoxification Services for Substance Abuse Treatment (ICD-10-PCS; principal; 2023-06-15)
DX: F10.230 Alcohol dependence with withdrawal, uncomplicated (principal); F17.210 Nicotine dependence, cigarettes, uncomplicated; F31.9 Bipolar disorder, unspecified; I10 Essential (primary) hypertension; K70.30 Alcoholic cirrhosis of liver without ascites; B19.10 Unspecified viral hepatitis B without hepatic coma; M41.9 Scoliosis, unspecified; Z99.89 Dependence on other enabling machines and devices
CPT/HCPCS: 36415; 70450-TC; 80053; 80307; 83690; 83735; 85025; 87635; 87811; 93005; 93010

== ENCOUNTER 2023-08-26 08:26 | Emergency (ER) | payer OTHER ==
[2023-08-26 09:33] VITALS: BMI 20.9
[2023-08-26 11:34] LABS: HEMOGLOBIN 10.7 GM/dL (11.7-16.9); MCH 36.5 pg (25.7-33.7); MCHC 35.7 g/dl (32.0-35.9); MEAN CELL VOLUME 102.4 fl (80-96); MEAN PLT VOLUME 7.7 fl (7.5-11.1); PLATELET COUNT 183 10^3/uL (134-434); RBC 2.93 M/mm3 (4.00-5.60); RDW 15.5 % (11.9-15.9); WHITE BLOOD COUNT 11.3 K/mm3 (4.0-10.0)
[2023-08-26 11:42] LABS: INR 1.71 (0.83-1.09); PROTHROMBIN TIME (PATIENT) 19.7 SEC (9.7-13.0)
[2023-08-26 12:02] LABS: EPI CELLS 11 /uL (0-25.1); HYALINE CASTS 3 /uL (0-3.1); URINE APPEARANCE CLOUDY; URINE BILIRUBIN 3+ (NEGATIVE); URINE COLOR ORANGE; URINE GLUCOSE (UA) NEGATIVE (NEGATIVE); URINE KETONE NEGATIVE (NEGATIVE); URINE LEUK ESTERASE 2+ (NEGATIVE); URINE NITRITE POSITIVE (NEGATIVE); URINE PROTEIN 1+ (NEGATIVE); URINE RBC 10 /uL (0-23.9); URINE WBC 192 /uL (0-25.8)
[2023-08-26 12:05] LABS: URINE CRYSTALS NEGATIVE /hpf
[2023-08-26 12:13] LABS: CHLORIDE 94 mmol/L (98-107); SODIUM 134 mmol/L (136-145)
[2023-08-26 12:15] LABS: BLOOD UREA NITROGEN 5.4 mg/dL (7-18); CALCIUM 7.7 mg/dL (8.5-10.1); CO2 30 mmol/L (21-32); GLUCOSE,RANDOM 94 mg/dL (74-106)
[2023-08-26 12:16] LABS: ALBUMIN 1.9 g/dl (3.4-5.0)
[2023-08-26 12:18] LABS: BILIRUBIN,DIRECT 9.8 mg/dL (0.0-0.2); CREATININE 0.5 mg/dL (0.55-1.3); SGOT/AST 269 U/L (15-37); SGPT/ALT 70 U/L (13-61)
[2023-08-26 12:20] LABS: BILIRUBIN,TOTAL 13.5 mg/dL (0.2-1)
[2023-08-26 12:21] LABS: ALK PHOS 445 U/L (45-117)
[2023-08-26 12:32] LABS: ANION GAP 10 mmol/L (4-13); POTASSIUM 2.6 mmol/L (3.5-5.1)
[2023-08-26] MEDS ORDERED: POTASSIUM CHLORIDE ORAL LIQUID 20 MEQ/15 ML PO ONE ×2 (13:01→19:00)
[2023-08-26] MEDS ORDERED: POTASSIUM CHLORIDE ORAL LIQUID 20 MEQ/15 ML ONE ×2 (14:32→19:44)
[2023-08-26] MEDS ORDERED: chlordiazePOXIDE HCL 25 MG CAPSULE PO ONE (15:47)
[2023-08-26] MEDS ORDERED: chlordiazePOXIDE HCL 25 MG CAPSULE ONE (16:50)
[2023-08-26] MEDS ORDERED: CEFTRIAXONE 2,000 MG in DEXTROSE 5%-WATER - 50 ML IVPB ONE (18:27)
[2023-08-26] MEDS ORDERED: CEFTRIAXONE 2 GM/100 ML BAG IVPB ONE (19:44)
[2023-08-27 00:25] VITALS: BP 108/37; PULSE 110; RESP 18; TEMP 98.6
== END 2023-08-26 22:29 | disposition short-term general hospital (02) ==
LOC: JER 08:26
DX: R18.8 Other ascites (principal); R10.13 Epigastric pain; R63.0 Anorexia; R11.2 Nausea with vomiting, unspecified; H15.89 Other disorders of sclera; F10.929 Alcohol use, unspecified with intoxication, unspecified
CPT/HCPCS: 36415; 74177-TC; 76705-TC; 80053; 81003; 82140; 82248; 83690; 85027; 85610; 86850; 86900; 86901; 93005; 93010; 99291; Q9967

== ENCOUNTER 2023-09-10 12:39 | Inpatient (IN) | payer OTHER ==
[2023-09-10 13:16] VITALS: BMI 22.0
[2023-09-10] MEDS ORDERED: ACETAMINOPHEN 325 MG TABLET (FP) PO ONE (15:29)
[2023-09-10 16:01] LABS: HEMOGLOBIN 11.4 GM/dL (11.7-16.9); MCH 36.3 pg (25.7-33.7); MCHC 34.4 g/dl (32.0-35.9); MEAN CELL VOLUME 105.5 fl (80-96); MEAN PLT VOLUME 7.5 fl (7.5-11.1); PLATELET COUNT 356 10^3/uL (134-434); RBC 3.13 M/mm3 (4.00-5.60); RDW 15.3 % (11.9-15.9); WHITE BLOOD COUNT 18.7 K/mm3 (4.0-10.0)
[2023-09-10 16:09] LABS: INR 1.54 (0.83-1.09); PROTHROMBIN TIME (PATIENT) 17.8 SEC (9.7-13.0)
[2023-09-10 16:11] LABS: ACTIVATED PTT 31.2 SECONDS (25.2-36.5)
[2023-09-10 16:14] LABS: ADD RBC MORPHOLOGY YES; CHLORIDE 97 mmol/L (98-107); SODIUM 130 mmol/L (136-145)
[2023-09-10 16:17] LABS: ALBUMIN 1.6 g/dl (3.4-5.0); BLOOD UREA NITROGEN 21.1 mg/dL (7-18); CALCIUM 7.7 mg/dL (8.5-10.1); CO2 23 mmol/L (21-32); GLUCOSE,RANDOM 110 mg/dL (74-106)
[2023-09-10 16:20] LABS: CREATININE 0.9 mg/dL (0.55-1.3); SGOT/AST 175 U/L (15-37); SGPT/ALT 69 U/L (13-61)
[2023-09-10 16:22] LABS: TOT PROT 5.6 g/dl (6.4-8.2)
[2023-09-10 16:23] LABS: ALK PHOS 315 U/L (45-117)
[2023-09-10 16:44] LABS: ANION GAP 10 mmol/L (4-13); BILIRUBIN,TOTAL 15.6 mg/dL (0.2-1); POTASSIUM 2.9 mmol/L (3.5-5.1)
[2023-09-10 17:13] LABS: ANISOCYTOSIS 1+; MACROCYTOSIS 1+; TARGET CELLS 1+
[2023-09-10] MEDS ORDERED: POTASSIUM CHLORIDE TABS 20 MEQ TABLET.ER (FP) PO ONE (17:33)
[2023-09-10] MEDS ORDERED: KCL 10 MEQ IVPB 10 MEQ/100 ML INFUS.BAG IVPB ONE (17:33)
[2023-09-10] MEDS ORDERED: chlordiazePOXIDE HCL 25 MG CAPSULE ONE (17:33)
[2023-09-10] MEDS: chlordiazePOXIDE HCL 25 MG CAPSULE PO ONE (17:48)
[2023-09-10] MEDS: POTASSIUM CHLORIDE TABS 20 MEQ TABLET.ER (FP) PO ONE (17:48)
[2023-09-10] MEDS: KCL 10 MEQ IVPB 10 MEQ/100 ML INFUS.BAG IVPB SCH (17:49)
[2023-09-10] MEDS: CEFOTAXIME SODIUM 2,000 MG in DEXTROSE 5%-WATER - 50 ML IVPB ONE (19:53)
[2023-09-10] MEDS ORDERED: CEFTRIAXONE 2 GM/100 ML BAG IVPB ONE (20:14)
[2023-09-10] MEDS ORDERED: MAGNESIUM SULFATE IN WATER 2 GM/50 ML IVPB IVPB ONE (20:14)
[2023-09-10] MEDS: CEFTRIAXONE 2 GM in DEXTROSE 5%-WATER - 50 ML IVPB ONE (20:22)
[2023-09-10] MEDS: MAGNESIUM SULF 50% (8.12 MEQ/2 ML-1 GM VIAL) IVPB ONE (20:39)
[2023-09-10] MEDS ORDERED: POTASSIUM CHLORIDE ORAL LIQUID 20 MEQ/15 ML ONE (22:57)
[2023-09-10] MEDS: POTASSIUM CHLORIDE ORAL LIQUID 20 MEQ/15 ML PO ONE (23:00)
[2023-09-10] MEDS ORDERED: IBUPROFEN 400 MG TABLET (FP) PO ONE (23:16)
[2023-09-10] MEDS: IBUPROFEN 400 MG TABLET (FP) PO ONE (23:18)
[2023-09-10 23:24] LABS: BF WBC & OTHER NUCLEATED CELLS 118 /mm3
[2023-09-11 00:22] LABS: VENOUS BASE EXCESS -0.7 mmol/L (-2-2); VENOUS O2 SATURATION 34.2 % (70-80); VENOUS PCO2 42.8 mmHg (38-52); VENOUS PH 7.377 (7.310-7.410)
[2023-09-11 00:53] LABS: POTASSIUM 3.4 mmol/L (3.5-5.1)
[2023-09-11 00:54] LABS: CALCIUM 7.5 mg/dL (8.5-10.1)
[2023-09-11 00:55] LABS: BLOOD UREA NITROGEN 25.1 mg/dL (7-18)
[2023-09-11 00:58] LABS: CREATININE 1.1 mg/dL (0.55-1.3)
[2023-09-11] MEDS ORDERED: OSELTAMIVIR PHOSPHATE 75 MG CAPSULE ONE (01:36)
[2023-09-11 02:01] LABS: BODY FLUID MONOCYTE 17 %
[2023-09-11] MEDS: OSELTAMIVIR PHOSPHATE 75 MG CAPSULE PO SCH (02:02)
[2023-09-11 02:06] LABS: BODY FLUID MACROPHAGES 23 %; BODY FLUID MESOTHELIAL 20 %
[2023-09-11] MEDS ORDERED: NICOTINE 21 MG/24 HOURS TOPICAL PATCH ONE (04:34)
[2023-09-11] MEDS ORDERED: CEFTRIAXONE 2 GM/100 ML BAG IVPB ONE (04:35)
[2023-09-11] MEDS: CEFTRIAXONE 2 GM in DEXTROSE 5%-WATER 100 ML IVPB ONE (04:40)
[2023-09-11] MEDS: NICOTINE 21 MG/24 HOURS TOPICAL PATCH TD SCH (04:40)
[2023-09-11 07:19] LABS: HEMATOCRIT 32.8 % (35.4-49); HEMOGLOBIN 11.4 GM/dL (11.7-16.9); MCH 37.3 pg (25.7-33.7); MCHC 34.6 g/dl (32.0-35.9); MEAN CELL VOLUME 107.8 fl (80-96); MEAN PLT VOLUME 7.7 fl (7.5-11.1); PLATELET COUNT 339 10^3/uL (134-434); RBC 3.04 M/mm3 (4.00-5.60); RDW 14.8 % (11.9-15.9); WHITE BLOOD COUNT 16.5 K/mm3 (4.0-10.0)
[2023-09-11 07:42] LABS: POTASSIUM 3.7 mmol/L (3.5-5.1)
[2023-09-11 07:48] LABS: CALCIUM 7.1 mg/dL (8.5-10.1)
[2023-09-11 07:49] LABS: ALBUMIN 1.5 g/dl (3.4-5.0); MAGNESIUM 2.8 mg/dL (1.8-2.4)
[2023-09-11 07:51] LABS: PHOSPHOROUS 1.9 mg/dL (2.5-4.9)
[2023-09-11 07:53] LABS: BILIRUBIN,TOTAL 13.9 mg/dL (0.2-1); TOT PROT 5.2 g/dl (6.4-8.2)
[2023-09-11 08:59] LABS: ANISOCYTOSIS 1+; MACROCYTOSIS 2+
[2023-09-11] MEDS: THIAMINE HCL 200 MG/2 ML VIAL IM SCH (09:33)
[2023-09-11] MEDS: FOLIC ACID 1 MG TABLET (FP) PO SCH (09:33)
[2023-09-11] MEDS: ENOXAPARIN NA (PORCINE) 40 MG/0.4 ML DISP.SYRIN SQ SCH (09:33)
[2023-09-11] MEDS ORDERED: NICOTINE 14 MG/24 HOURS TOPICAL PATCH TD SCH (10:00)
[2023-09-11 10:22] LABS: BILIRUBIN,DIRECT 10.5 mg/dL (0.0-0.2)
[2023-09-11] MEDS: SODIUM CHLORIDE 1,000 ML IV SCH ×2 (11:26→14:34)
[2023-09-11] MEDS ORDERED: NAPH,MB-DB/K PH,MBDB POWDER PACKET ONE (16:03)
[2023-09-11] MEDS: NAPH,MB-DB/K PH,MBDB POWDER PACKET PO ONE (16:04)
[2023-09-11] MEDS: THIAMINE HCL 200 MG/2 ML VIAL IVPB SCH (18:02)
[2023-09-11 19:41] LABS: CHLORIDE 100 mmol/L (98-107); POTASSIUM 3.5 mmol/L (3.5-5.1); SODIUM 130 mmol/L (136-145)
[2023-09-11 19:44] LABS: ANION GAP 9 mmol/L (4-13); BLOOD UREA NITROGEN 26.1 mg/dL (7-18); CO2 21 mmol/L (21-32); GLUCOSE,RANDOM 109 mg/dL (74-106)
[2023-09-11 19:47] LABS: CREATININE 0.8 mg/dL (0.55-1.3); IRON SERUM 76 ug/dL (50-175); TOTAL IRON BINDING CAPACITY 119 ug/dL (250-450)
[2023-09-11 19:56] LABS: CALCIUM 6.9 mg/dL (8.5-10.1)
[2023-09-11 22:36] LABS: ALBUMIN 1.5 g/dl (3.4-5.0)
[2023-09-11] MEDS: LORazepam 1 MG TABLET PO PRN (22:49)
[2023-09-12] MEDS: CHOLESTYRAMINE/NUTRASWEET 4 GM PACKET PO SCH (07:28)
[2023-09-12 08:59] LABS: HEMATOCRIT 32.3 % (35.4-49); MCH 36.6 pg (25.7-33.7); MEAN CELL VOLUME 107.6 fl (80-96); MEAN PLT VOLUME 7.5 fl (7.5-11.1); PLATELET COUNT 309 10^3/uL (134-434); RDW 14.7 % (11.9-15.9); WHITE BLOOD COUNT 14.7 K/mm3 (4.0-10.0)
[2023-09-12 09:03] LABS: INR 1.76 (0.83-1.09); PROTHROMBIN TIME (PATIENT) 20.3 SEC (9.7-13.0)
[2023-09-12 09:16] LABS: POTASSIUM 3.8 mmol/L (3.5-5.1)
[2023-09-12 09:21] LABS: CALCIUM 7.8 mg/dL (8.5-10.1)
[2023-09-12 09:22] LABS: ALBUMIN 1.5 g/dl (3.4-5.0); BLOOD UREA NITROGEN 24.8 mg/dL (7-18); MAGNESIUM 2.4 mg/dL (1.8-2.4)
[2023-09-12 09:25] LABS: BILIRUBIN,TOTAL 14.9 mg/dL (0.2-1); CREATININE 0.6 mg/dL (0.55-1.3); TOT PROT 5.2 g/dl (6.4-8.2)
[2023-09-12] MEDS: CEFTRIAXONE 2 GM in DEXTROSE 5%-WATER 100 ML IVPB SCH (09:32)
[2023-09-12 11:42] LABS: ANISOCYTOSIS 2+; MACROCYTOSIS 2+
[2023-09-12] MEDS: LIDOCAINE 4% PATCH TP SCH (12:08)
[2023-09-12] MEDS: NAPH,MB-DB/K PH,MBDB POWDER PACKET PO ONE (12:26)
[2023-09-12] MEDS: PHYTONADIONE 10 MG/1 ML AMP IVPB ONE (13:36)
[2023-09-12] MEDS: SODIUM CHLORIDE 1,000 ML IV SCH (15:06)
[2023-09-12 17:55] LABS: HEPATITIS B SURFACE AG CONFIRM CONFIRMED (NONREACTIVE)
[2023-09-12] MEDS: LIDOCAINE PATCH REMOVAL MC SCH (21:42)
[2023-09-13 02:01] VITALS: RESP 18
[2023-09-13 10:25] LABS: BASO % 0.5 % (0-2.0); HEMATOCRIT 31.7 % (35.4-49); HEMOGLOBIN 10.7 GM/dL (11.7-16.9); LYMPH % 10.1 % (8-40); MCH 36.5 pg (25.7-33.7); MCHC 33.8 g/dl (32.0-35.9); MEAN PLT VOLUME 7.4 fl (7.5-11.1); MONO % 6.6 % (3.8-10.2); NEUT % 81.8 % (42.8-82.8); PLATELET COUNT 289 10^3/uL (134-434); RBC 2.93 M/mm3 (4.00-5.60); RDW 14.7 % (11.9-15.9); WHITE BLOOD COUNT 15.5 K/mm3 (4.0-10.0)
[2023-09-13] MEDS: PrednisoLONE 15 MG/5 ML UNIT-DOSE CUP PO SCH (10:25)
[2023-09-13 10:34] LABS: INR 1.69 (0.83-1.09); PROTHROMBIN TIME (PATIENT) 19.5 SEC (9.7-13.0)
[2023-09-13 11:12] LABS: POTASSIUM 3.7 mmol/L (3.5-5.1)
[2023-09-13 11:15] LABS: ALBUMIN 1.4 g/dl (3.4-5.0); BLOOD UREA NITROGEN 25.3 mg/dL (7-18); MAGNESIUM 2.3 mg/dL (1.8-2.4)
[2023-09-13 11:18] LABS: CREATININE 0.7 mg/dL (0.55-1.3); PHOSPHOROUS 1.9 mg/dL (2.5-4.9)
[2023-09-13 11:19] LABS: TOT PROT 5.1 g/dl (6.4-8.2)
[2023-09-13 11:23] LABS: BILIRUBIN,TOTAL 11.9 mg/dL (0.2-1); CALCIUM 7.5 mg/dL (8.5-10.1)
[2023-09-13] MEDS: NAPH,MB-DB/K PH,MBDB POWDER PACKET PO SCH (12:56)
[2023-09-13] MEDS: LACTULOSE 20 GM/30 ML UDC (FOR ORAL USE ONLY) PO SCH (14:59)
[2023-09-13 17:06] LABS: BF WBC & OTHER NUCLEATED CELLS 84 /mm3; BODY FLUID MONOCYTE 6 %
[2023-09-13 17:07] LABS: BODY FLUID MACROPHAGES 47 %; BODY FLUID MESOTHELIAL 9 %
[2023-09-14] MEDS ORDERED: ALBUMIN HUMAN 25% 12.5 GM/50 ML VIAL IV SCH (08:45)
[2023-09-14] MEDS: SPIRONOLACTONE 25 MG TABLET PO SCH (09:31)
[2023-09-14] MEDS: FUROSEMIDE 40 MG TABLET (FP) PO SCH (09:32)
[2023-09-14] MEDS ORDERED: PATIENT'S OWN MEDICATION (NON-FORMULARY) (Tenofovir Alafenamide 25 MG Tablet) PO SCH (10:00)
[2023-09-14 10:29] LABS: HEMATOCRIT 34.9 % (35.4-49); HEMOGLOBIN 11.7 GM/dL (11.7-16.9); INR 1.66 (0.83-1.09); MCH 36.6 pg (25.7-33.7); MCHC 33.4 g/dl (32.0-35.9); MEAN CELL VOLUME 109.7 fl (80-96); MEAN PLT VOLUME 7.5 fl (7.5-11.1); PLATELET COUNT 320 10^3/uL (134-434); PROTHROMBIN TIME (PATIENT) 19.2 SEC (9.7-13.0); RBC 3.18 M/mm3 (4.00-5.60); RDW 14.8 % (11.9-15.9); WHITE BLOOD COUNT 20.6 K/mm3 (4.0-10.0)
[2023-09-14 11:03] LABS: ANISOCYTOSIS 1+; MACROCYTOSIS 2+
[2023-09-14 11:04] LABS: POTASSIUM 3.7 mmol/L (3.5-5.1)
[2023-09-14 11:06] LABS: CALCIUM 7.6 mg/dL (8.5-10.1)
[2023-09-14 11:07] LABS: ALBUMIN 1.6 g/dl (3.4-5.0); BLOOD UREA NITROGEN 24.6 mg/dL (7-18); MAGNESIUM 2.5 mg/dL (1.8-2.4)
[2023-09-14 11:10] LABS: CREATININE 0.7 mg/dL (0.55-1.3); PHOSPHOROUS 2.2 mg/dL (2.5-4.9)
[2023-09-14 11:11] LABS: TOT PROT 5.6 g/dl (6.4-8.2)
[2023-09-14 11:25] LABS: BILIRUBIN,TOTAL 8.8 mg/dL (0.2-1)
[2023-09-14] MEDS: ALBUMIN HUMAN 25% 12.5 GM/50 ML VIAL IV SCH (12:21)
[2023-09-14] MEDS: MIDODRINE HCL 2.5 MG TABLET PO SCH (17:10)
[2023-09-14] MEDS: traMADol HCL 50 MG TABLET PO PRN (17:10)
[2023-09-15] MEDS: THIAMINE HCL 200 MG/2 ML VIAL IVPB SCH (10:06)
[2023-09-15 11:23] LABS: HEMATOCRIT 32.6 % (35.4-49); MCH 36.6 pg (25.7-33.7); MCHC 33.6 g/dl (32.0-35.9); MEAN CELL VOLUME 108.9 fl (80-96); MEAN PLT VOLUME 7.3 fl (7.5-11.1); PLATELET COUNT 294 10^3/uL (134-434); WHITE BLOOD COUNT 17.3 K/mm3 (4.0-10.0)
[2023-09-15 12:03] LABS: POTASSIUM 3.4 mmol/L (3.5-5.1)
[2023-09-15 12:04] LABS: ANISOCYTOSIS 0; MACROCYTOSIS 2+
[2023-09-15 12:08] LABS: CALCIUM 8.2 mg/dL (8.5-10.1)
[2023-09-15 12:09] LABS: BLOOD UREA NITROGEN 25.9 mg/dL (7-18); MAGNESIUM 2.1 mg/dL (1.8-2.4)
[2023-09-15 12:11] LABS: PHOSPHOROUS 2.1 mg/dL (2.5-4.9)
[2023-09-15 12:12] LABS: CREATININE 0.7 mg/dL (0.55-1.3)
[2023-09-15 12:13] LABS: TOT PROT 5.7 g/dl (6.4-8.2)
[2023-09-15 12:17] LABS: ALBUMIN 2.2 g/dl (3.4-5.0); BILIRUBIN,TOTAL 6.3 mg/dL (0.2-1)
[2023-09-15] MEDS: POTASSIUM CHLORIDE TABS 20 MEQ TABLET.ER (FP) PO ONE (13:42)
[2023-09-15] MEDS: FUROSEMIDE 40 MG/4 ML INJECTABLE VIAL IVPUSH ONE (16:29)
[2023-09-15 17:08] LABS: BODY FLUID ALBUMIN 0.5 g/dL (Not Estab.)
[2023-09-16 11:30] LABS: BASO % 0.3 % (0-2.0); EOS % 2.3 % (0-4.5); HEMATOCRIT 33.3 % (35.4-49); HEMOGLOBIN 11.2 GM/dL (11.7-16.9); LYMPH % 12.1 % (8-40); MCH 36.7 pg (25.7-33.7); MCHC 33.5 g/dl (32.0-35.9); MEAN CELL VOLUME 109.4 fl (80-96); MEAN PLT VOLUME 7.2 fl (7.5-11.1); MONO % 7.8 % (3.8-10.2); NEUT % 77.5 % (42.8-82.8); PLATELET COUNT 259 10^3/uL (134-434); RBC 3.04 M/mm3 (4.00-5.60); RDW 15.2 % (11.9-15.9); WHITE BLOOD COUNT 13.8 K/mm3 (4.0-10.0)
[2023-09-16 11:34] LABS: INR 1.72 (0.83-1.09); PROTHROMBIN TIME (PATIENT) 19.8 SEC (9.7-13.0)
[2023-09-16 12:05] LABS: POTASSIUM 3.8 mmol/L (3.5-5.1)
[2023-09-16 12:08] LABS: ALBUMIN 1.9 g/dl (3.4-5.0); BLOOD UREA NITROGEN 26.2 mg/dL (7-18); CALCIUM 8.4 mg/dL (8.5-10.1)
[2023-09-16 12:11] LABS: CREATININE 0.9 mg/dL (0.55-1.3)
[2023-09-16 12:13] LABS: BILIRUBIN,TOTAL 6.4 mg/dL (0.2-1); TOT PROT 5.3 g/dl (6.4-8.2)
[2023-09-17 06:30] VITALS: PULSE 86; TEMP 98.4
[2023-09-17 08:36] LABS: HEMATOCRIT 32.9 % (35.4-49); HEMOGLOBIN 11.3 GM/dL (11.7-16.9); MCH 36.9 pg (25.7-33.7); MCHC 34.2 g/dl (32.0-35.9); MEAN CELL VOLUME 107.9 fl (80-96); MEAN PLT VOLUME 6.9 fl (7.5-11.1); PLATELET COUNT 235 10^3/uL (134-434); RBC 3.05 M/mm3 (4.00-5.60); RDW 15.3 % (11.9-15.9); WHITE BLOOD COUNT 12.1 K/mm3 (4.0-10.0)
[2023-09-17 08:48] LABS: POTASSIUM 3.8 mmol/L (3.5-5.1)
[2023-09-17 08:51] LABS: CALCIUM 7.5 mg/dL (8.5-10.1)
[2023-09-17 08:52] LABS: ALBUMIN 1.8 g/dl (3.4-5.0); BLOOD UREA NITROGEN 21.7 mg/dL (7-18)
[2023-09-17 08:55] LABS: CREATININE 0.7 mg/dL (0.55-1.3)
[2023-09-17 08:57] LABS: BILIRUBIN,TOTAL 6.3 mg/dL (0.2-1)
[2023-09-17] MEDS: LACTULOSE 20 GM/30 ML UDC (FOR ORAL USE ONLY) PO SCH (09:30)
[2023-09-17 10:57] LABS: ANISOCYTOSIS 0; MACROCYTOSIS 2+; TARGET CELLS 1+
[2023-09-17 11:02] VITALS: BP 118/95
== END 2023-09-17 11:08 | disposition left against medical advice (07) | DRG 280 ==
LOC: JER 12:39 → JERBED 21:03 → J5S 09-11 17:02
PROVIDERS: ADMIT Internal Medicine; ATTEND Internal Medicine
PROC: 0W9G3ZZ Drainage of Peritoneal Cavity, Percutaneous Approach (ICD-10-PCS; principal; 2023-09-10)
DX: K70.31 Alcoholic cirrhosis of liver with ascites (principal); K70.11 Alcoholic hepatitis with ascites; E87.1 Hypo-osmolality and hyponatremia; J11.1 Influenza due to unidentified influenza virus with other respiratory manifestations; J44.9 Chronic obstructive pulmonary disease, unspecified; E78.5 Hyperlipidemia, unspecified; D64.9 Anemia, unspecified; B18.1 Chronic viral hepatitis B without delta-agent; E80.6 Other disorders of bilirubin metabolism; F17.200 Nicotine dependence, unspecified, uncomplicated; K52.9 Noninfective gastroenteritis and colitis, unspecified; I95.9 Hypotension, unspecified; F17.210 Nicotine dependence, cigarettes, uncomplicated
CPT/HCPCS: 0241U-QW; 36415; 71045-TC-FY; 74176-TC; 74181-TC; 76705-TC; 76942-TC; 80048; 80053; 80307; 82040; 82042; 82105; 82140; 82150; 82248; 82272; 82607; 82728; 82747; 82803; 82945; 82962; 83036; 83540; 83550; 83605; 83615; 83690; 83735; 83986; 84100; 84157; 84478; 85014; 85025; 85610; 85730; 86480; 86704; 86706; 86709; 86803; 87040; 87070; 87075; 87102; 87116; 87186; 87205; 87206; 87210; 87340; 87517; 93005; 93010; 97116-GP; 97161-GP; 99285-25; P9047

== ENCOUNTER 2023-12-09 21:24 | Inpatient (IN) | payer OTHER ==
[2023-12-09 21:56] VITALS: BMI 20.9
[2023-12-09] MEDS ORDERED: FAMOTIDINE 20 MG/50 ML IVPB 20 MG/50 ML MG IVPB ONE (22:28)
[2023-12-09] MEDS ORDERED: MAG HYDROX/AL HYDROX/SIMETH 30 ML UNIT-DOSE CUP ONE (22:28)
[2023-12-09] MEDS: FAMOTIDINE 20 MG/50 ML IVPB 20 MG/50 ML MG IVPB ONE (22:38)
[2023-12-09] MEDS: MAG HYDROX/AL HYDROX/SIMETH 30 ML UNIT-DOSE CUP PO ONE (22:38)
[2023-12-09 22:40] LABS: BASO % 0.6 % (0-2.0); EOS % 3.9 % (0-4.5); HEMATOCRIT 34.4 % (35.4-49); HEMOGLOBIN 11.8 GM/dL (11.7-16.9); LYMPH % 25.9 % (8-40); MCH 31.6 pg (25.7-33.7); MCHC 34.4 g/dl (32.0-35.9); MEAN CELL VOLUME 91.6 fl (80-96); MEAN PLT VOLUME 6.4 fl (7.5-11.1); NEUT % 62.6 % (42.8-82.8); PLATELET COUNT 172 10^3/uL (134-434); RBC 3.75 M/mm3 (4.00-5.60); RDW 15.7 % (11.9-15.9); WHITE BLOOD COUNT 6.7 K/mm3 (4.0-10.0)
[2023-12-09 22:41] LABS: POTASSIUM 3.2 mmol/L (3.5-5.1)
[2023-12-09 22:44] LABS: ALBUMIN 2.3 g/dl (3.4-5.0); BLOOD UREA NITROGEN 5.7 mg/dL (7-18); CALCIUM 8.3 mg/dL (8.5-10.1)
[2023-12-09 22:47] LABS: CREATININE 0.6 mg/dL (0.55-1.3)
[2023-12-09 22:48] LABS: BILIRUBIN,TOTAL 0.8 mg/dL (0.2-1); TOT PROT 5.8 g/dl (6.4-8.2)
[2023-12-09 22:49] LABS: INR 1.35 (0.83-1.09); PROTHROMBIN TIME (PATIENT) 15.1 SEC (9.7-13.0)
[2023-12-09 22:52] LABS: ACTIVATED PTT 35.8 SECONDS (25.2-36.5)
[2023-12-09] MEDS ORDERED: POTASSIUM CHLORIDE TABS 20 MEQ TABLET.ER (FP) PO ONE (23:37)
[2023-12-09] MEDS: POTASSIUM CHLORIDE TABS 20 MEQ TABLET.ER (FP) PO ONE (23:40)
[2023-12-10] MEDS: morphine CARPU-JECT 4 MG/1 ML DISP.SYRIN IVPUSH ONE (03:09)
[2023-12-10] MEDS ORDERED: LORazepam 1 MG TABLET PO PRN (04:36)
[2023-12-10] MEDS: LORazepam 1 MG TABLET PO SCH (05:53)
[2023-12-10] MEDS: GABAPENTIN 300 MG CAPSULE PO SCH (05:54)
[2023-12-10] MEDS ORDERED: MAG HYDROX/AL HYDROX/SIMETH 30 ML UNIT-DOSE CUP PO PRN (06:05)
[2023-12-10] MEDS: ACAMPROSATE CALCIUM 333 MG TABLET.DR PO SCH (06:20)
[2023-12-10] MEDS: PANTOPRAZOLE SODIUM 40 MG VIAL IVPUSH SCH (06:20)
[2023-12-10] MEDS: MAG HYDROX/AL HYDROX/SIMETH 30 ML UNIT-DOSE CUP PO ONE (06:37)
[2023-12-10 08:37] LABS: HEMATOCRIT 33.6 % (35.4-49); HEMOGLOBIN 11.6 GM/dL (11.7-16.9); MCH 31.8 pg (25.7-33.7); MCHC 34.5 g/dl (32.0-35.9); MEAN CELL VOLUME 92.3 fl (80-96); MEAN PLT VOLUME 6.7 fl (7.5-11.1); PLATELET COUNT 161 10^3/uL (134-434); RBC 3.64 M/mm3 (4.00-5.60); RDW 15.9 % (11.9-15.9); WHITE BLOOD COUNT 6.8 K/mm3 (4.0-10.0)
[2023-12-10 09:01] LABS: POTASSIUM 3.7 mmol/L (3.5-5.1)
[2023-12-10 09:10] LABS: ALBUMIN 2.1 g/dl (3.4-5.0); CALCIUM 7.8 mg/dL (8.5-10.1); MAGNESIUM 1.9 mg/dL (1.8-2.4); TOT PROT 5.6 g/dl (6.4-8.2)
[2023-12-10 09:12] LABS: BLOOD UREA NITROGEN 6.1 mg/dL (7-18); PHOSPHOROUS 2.4 mg/dL (2.5-4.9)
[2023-12-10 09:13] LABS: CREATININE 0.6 mg/dL (0.55-1.3)
[2023-12-10 09:22] LABS: BILIRUBIN,TOTAL 0.7 mg/dL (0.2-1)
[2023-12-10] MEDS: TAMSULOSIN HCL 0.4 MG CAP PO SCH (09:32)
[2023-12-10] MEDS: SPIRONOLACTONE 25 MG TABLET PO SCH (09:35)
[2023-12-10] MEDS: RIFAXIMIN 550 MG TABLET PO SCH (09:35)
[2023-12-10] MEDS: NICOTINE 21 MG/24 HOURS TOPICAL PATCH TD SCH (09:36)
[2023-12-10] MEDS: FOLIC ACID 1 MG TABLET (FP) PO SCH (09:36)
[2023-12-10] MEDS: THIAMINE 100 MG TABLET PO SCH (09:37)
[2023-12-10] MEDS ORDERED: PANTOPRAZOLE 40 MG TABLET PO SCH (10:00)
[2023-12-10] MEDS: FUROSEMIDE 40 MG TABLET (FP) PO SCH (10:00)
[2023-12-10] MEDS ORDERED: PANTOPRAZOLE SODIUM 40 MG VIAL IVPUSH SCH (10:00)
[2023-12-10] MEDS ORDERED: ENOXAPARIN NA (PORCINE) 40 MG/0.4 ML DISP.SYRIN SQ SCH (10:00)
[2023-12-10] MEDS ORDERED: FUROSEMIDE 40 MG TABLET (FP) PO SCH ×2 (10:00)
[2023-12-10] MEDS: NAPH,MB-DB/K PH,MBDB POWDER PACKET PO SCH (13:06)
[2023-12-10] MEDS: TENOFOVIR ALAFENAMIDE 25 MG PO SCH (22:29)
[2023-12-11] MEDS: LORazepam 1 MG TABLET PO SCH (05:25)
[2023-12-11] MEDS ORDERED: ACETAMINOPHEN 325 MG TABLET (FP) PO PRN (06:23)
[2023-12-11] MEDS: ACETAMINOPHEN 325 MG TABLET (FP) PO PRN ×2 (06:36→18:47)
[2023-12-11 08:20] LABS: HEMATOCRIT 33.7 % (35.4-49); HEMOGLOBIN 11.6 GM/dL (11.7-16.9); MCH 31.8 pg (25.7-33.7); MCHC 34.6 g/dl (32.0-35.9); MEAN CELL VOLUME 91.8 fl (80-96); PLATELET COUNT 160 10^3/uL (134-434); RBC 3.67 M/mm3 (4.00-5.60); RDW 16.4 % (11.9-15.9); WHITE BLOOD COUNT 6.4 K/mm3 (4.0-10.0)
[2023-12-11 08:42] LABS: POTASSIUM 4.1 mmol/L (3.5-5.1)
[2023-12-11 08:45] LABS: BLOOD UREA NITROGEN 11.6 mg/dL (7-18); MAGNESIUM 1.8 mg/dL (1.8-2.4)
[2023-12-11 08:47] LABS: BILIRUBIN,DIRECT 0.4 mg/dL (0.0-0.2)
[2023-12-11 08:49] LABS: BILIRUBIN,TOTAL 0.9 mg/dL (0.2-1); CREATININE 0.8 mg/dL (0.55-1.3); PHOSPHOROUS 3.3 mg/dL (2.5-4.9); TOT PROT 5.3 g/dl (6.4-8.2)
[2023-12-11 17:52] LABS: PH,URINE 7.5 (5.0-8.0); URINE APPEARANCE CLEAR; URINE BILIRUBIN NEGATIVE (NEGATIVE); URINE COLOR YELLOW; URINE GLUCOSE (UA) NEGATIVE (NEGATIVE); URINE KETONE NEGATIVE (NEGATIVE); URINE LEUK ESTERASE NEGATIVE (NEGATIVE); URINE NITRITE NEGATIVE (NEGATIVE); URINE PROTEIN NEGATIVE (NEGATIVE); URINE UROBILINOGEN 0.2 mg/dL (0.2-1.0)
[2023-12-11] MEDS: ALBUMIN HUMAN 25% 12.5 GM/50 ML VIAL IV ONE (18:53)
[2023-12-11 19:01] LABS: URINE BARBITURATES NEGATIVE (NEGATIVE)
[2023-12-11 19:02] LABS: METHADONE, UR NEGATIVE (NEGATIVE); PHENCYCLIDINE,URINE NEGATIVE (NEGATIVE); URINE AMPHETAMINES NEGATIVE (NEGATIVE)
[2023-12-11 19:03] LABS: OPIATES, URI NEGATIVE (NEGATIVE)
[2023-12-11 19:10] LABS: COCAINE, UR NEGATIVE (NEGATIVE); URINE BENZODIAZEPINES POSITIVE (NEGATIVE)
[2023-12-12] MEDS ORDERED: LORazepam 0.5 MG TABLET PO PRN
[2023-12-12] MEDS: LORazepam 2 MG/ML SDV VIAL IVPUSH PRN (03:03)
[2023-12-12] MEDS ORDERED: LORazepam 0.5 MG TABLET PO SCH (05:00)
[2023-12-12] MEDS ORDERED: ALBUMIN HUMAN 25% 12.5 GM/50 ML VIAL IV ONE (09:15)
[2023-12-12 09:16] LABS: HEMATOCRIT 33.2 % (35.4-49); HEMOGLOBIN 11.3 GM/dL (11.7-16.9); MCH 31.6 pg (25.7-33.7); MCHC 33.9 g/dl (32.0-35.9); MEAN CELL VOLUME 93.3 fl (80-96); MEAN PLT VOLUME 7.1 fl (7.5-11.1); PLATELET COUNT 148 10^3/uL (134-434); RBC 3.56 M/mm3 (4.00-5.60); RDW 15.7 % (11.9-15.9); WHITE BLOOD COUNT 6.7 K/mm3 (4.0-10.0)
[2023-12-12 09:30] LABS: POTASSIUM 3.7 mmol/L (3.5-5.1)
[2023-12-12] MEDS ORDERED: ALBUMIN HUMAN 25% 100 ML VIAL IV ONE (09:30)
[2023-12-12 09:56] LABS: ALBUMIN 2.2 g/dl (3.4-5.0); CALCIUM 7.9 mg/dL (8.5-10.1)
[2023-12-12 09:57] LABS: BLOOD UREA NITROGEN 11.6 mg/dL (7-18)
[2023-12-12 10:00] LABS: CREATININE 0.7 mg/dL (0.55-1.3)
[2023-12-12 10:01] LABS: BILIRUBIN,DIRECT 0.4 mg/dL (0.0-0.2)
[2023-12-12 10:02] LABS: TOT PROT 5.2 g/dl (6.4-8.2)
[2023-12-12] MEDS: ALBUMIN HUMAN 25% 100 ML VIAL IV ONE (12:31)
[2023-12-12 14:03] LABS: BF WBC & OTHER NUCLEATED CELLS 231 /mm3; BODY FLUID MESOTHELIAL 18 %; BODY FLUID MONOCYTE 16 %
[2023-12-12 15:25] VITALS: BP 101/61; PULSE 96; RESP 20; TEMP 99.1
[2023-12-12] MEDS ORDERED: LACTULOSE 20 GM/30 ML UDC (FOR ORAL USE ONLY) PO SCH (22:00)
[2023-12-13] MEDS ORDERED: LORazepam 0.5 MG TABLET PO ONE (05:00)
== END 2023-12-12 16:02 | disposition home or self-care (01) | DRG 280 ==
LOC: JER 21:24 → JERBED 12-10 01:23 → J5S 12-10 03:45 → OBSVTOIN 12-12 09:30
PROVIDERS: ADMIT Internal Medicine; ATTEND Internal Medicine
PROC: 0W9G3ZZ Drainage of Peritoneal Cavity, Percutaneous Approach (ICD-10-PCS; principal; 2023-12-11)
DX: K70.31 Alcoholic cirrhosis of liver with ascites (principal); J44.9 Chronic obstructive pulmonary disease, unspecified; E78.5 Hyperlipidemia, unspecified; I11.0 Hypertensive heart disease with heart failure; I50.9 Heart failure, unspecified; K86.1 Other chronic pancreatitis; E83.39 Other disorders of phosphorus metabolism; E83.51 Hypocalcemia; I48.91 Unspecified atrial fibrillation; E87.6 Hypokalemia; F10.239 Alcohol dependence with withdrawal, unspecified; B18.1 Chronic viral hepatitis B without delta-agent; F31.9 Bipolar disorder, unspecified; I10 Essential (primary) hypertension; R45.1 Restlessness and agitation; F17.210 Nicotine dependence, cigarettes, uncomplicated; D64.9 Anemia, unspecified; M41.9 Scoliosis, unspecified; I44.7 Left bundle-branch block, unspecified; Z59.00 Homelessness unspecified; Z91.148 Patient's other noncompliance with medication regimen for other reason
CPT/HCPCS: 36415; 71046-TC-FY; 74177-TC; 76705-TC; 76942-TC; 80048; 80053; 80076; 80307; 81003; 82042; 82105; 82150; 82465; 82945; 83615; 83690; 83735; 83986; 84100; 84157; 84478; 84484; 85025; 85027; 85610; 85730; 87070; 87075; 87102; 87116; 87205; 87206; 87210; 88108; 88305-TC; 93005; 93010; 93306-TC; 99285-25; G0378; P9047

== ENCOUNTER 2023-12-13 00:31 | Emergency (ER) | payer OTHER ==
[2023-12-13 01:03] VITALS: BMI 21.4
[2023-12-13] MEDS ORDERED: ACETAMINOPHEN INJECTION 100 ML IVPB ONE (01:40)
[2023-12-13] MEDS: ACETAMINOPHEN 1000 MG/100 ML BAG IVPB ONE (02:02)
[2023-12-13] MEDS: SODIUM CHLORIDE 0.9% 500 ML INFUS.BAG IV ONE (02:02)
[2023-12-13 02:10] LABS: BASO % 0.9 % (0-2.0); EOS % 2.6 % (0-4.5); HEMATOCRIT 34.9 % (35.4-49); HEMOGLOBIN 11.9 GM/dL (11.7-16.9); LYMPH % 20.8 % (8-40); MCH 31.5 pg (25.7-33.7); MCHC 34.2 g/dl (32.0-35.9); MEAN CELL VOLUME 92.2 fl (80-96); MEAN PLT VOLUME 6.9 fl (7.5-11.1); MONO % 8.9 % (3.8-10.2); NEUT % 66.8 % (42.8-82.8); PLATELET COUNT 166 10^3/uL (134-434); RBC 3.78 M/mm3 (4.00-5.60); RDW 16.1 % (11.9-15.9); WHITE BLOOD COUNT 6.8 K/mm3 (4.0-10.0)
[2023-12-13 02:15] LABS: INR 1.37 (0.83-1.09); PROTHROMBIN TIME (PATIENT) 15.3 SEC (9.7-13.0)
[2023-12-13 02:16] LABS: VENOUS BASE EXCESS -1.2 mmol/L (-2-2); VENOUS O2 SATURATION 60.1 % (70-80); VENOUS PCO2 39.5 mmHg (38-52); VENOUS PH 7.393 (7.310-7.410)
[2023-12-13 02:18] LABS: ACTIVATED PTT 34.7 SECONDS (25.2-36.5)
[2023-12-13 02:36] LABS: ALBUMIN 2.6 g/dl (3.4-5.0); BLOOD UREA NITROGEN 8.4 mg/dL (7-18); CALCIUM 8.4 mg/dL (8.5-10.1); MAGNESIUM 1.7 mg/dL (1.8-2.4)
[2023-12-13 02:39] LABS: BILIRUBIN,DIRECT 0.3 mg/dL (0.0-0.2); CREATININE 0.7 mg/dL (0.55-1.3)
[2023-12-13 02:41] LABS: TOT PROT 5.6 g/dl (6.4-8.2)
[2023-12-13 02:44] LABS: BILIRUBIN,TOTAL 0.7 mg/dL (0.2-1)
[2023-12-13] MEDS: FOLIC ACID INJECTION - 1 MG, THIAMINE HCL 100 MG, MULTIVIT INJECTION ADULT 10 ML in SOD... IVPB ONE (04:40)
[2023-12-13 05:48] LABS: URINE APPEARANCE CLEAR; URINE BILIRUBIN NEGATIVE (NEGATIVE); URINE COLOR YELLOW; URINE GLUCOSE (UA) NEGATIVE (NEGATIVE); URINE KETONE NEGATIVE (NEGATIVE); URINE LEUK ESTERASE NEGATIVE (NEGATIVE); URINE NITRITE NEGATIVE (NEGATIVE); URINE PROTEIN NEGATIVE (NEGATIVE); URINE UROBILINOGEN 0.2 mg/dL (0.2-1.0)
[2023-12-13 06:22] VITALS: BP 103/64; PULSE 88; RESP 18; TEMP 98.4
[2023-12-13 07:13] LABS: PHENCYCLIDINE,URINE NEGATIVE (NEGATIVE); URINE BARBITURATES NEGATIVE (NEGATIVE)
[2023-12-13 07:14] LABS: COCAINE, UR NEGATIVE (NEGATIVE); METHADONE, UR NEGATIVE (NEGATIVE); OPIATES, URI NEGATIVE (NEGATIVE); URINE AMPHETAMINES NEGATIVE (NEGATIVE)
[2023-12-13 07:15] LABS: URINE BENZODIAZEPINES POSITIVE (NEGATIVE)
== END 2023-12-13 11:54 | disposition home or self-care (01) ==
LOC: JER 00:31
PROC: 3E033GC Introduction of Other Therapeutic Substance into Peripheral Vein, Percutaneous Approach (ICD-10-PCS; principal; 2023-12-13)
PROC: 3E033NZ Introduction of Analgesics, Hypnotics, Sedatives into Peripheral Vein, Percutaneous Approach (ICD-10-PCS; 2023-12-13)
DX: R45.851 Suicidal ideations (principal); F10.90 Alcohol use, unspecified, uncomplicated; F06.30 Mood disorder due to known physiological condition, unspecified; R10.9 Unspecified abdominal pain; Z20.822 Contact with and (suspected) exposure to COVID-19; Y90.3 Blood alcohol level of 60-79 mg/100 ml
CPT/HCPCS: 0241U-QW; 36415; 80053; 80307; 81003; 82248; 82550; 82803; 82962; 83735; 85025; 85610; 85730; 86850; 86900; 86901; 87086; 93005; 93010; 99284-25; J0131

== ENCOUNTER 2024-01-02 16:26 | Observation (INO) | payer OTHER ==
[2024-01-02 16:43] VITALS: BMI 27.4
[2024-01-02] MEDS ORDERED: FAMOTIDINE 20 MG/50 ML IVPB 20 MG/50 ML MG IVPB ONE (17:39)
[2024-01-02] MEDS ORDERED: ONDANSETRON 4 MG/2 ML VIAL ONE (17:39)
[2024-01-02] MEDS ORDERED: ACETAMINOPHEN INJECTION 100 ML IVPB ONE (17:39)
[2024-01-02] MEDS: ONDANSETRON 4 MG/2 ML VIAL IVPUSH ONE (17:50)
[2024-01-02] MEDS: LACTATED RINGERS SOLUTION 1000 ML INFUS.BAG IV ONE (17:55)
[2024-01-02] MEDS: FAMOTIDINE 20 MG/50 ML IVPB 20 MG/50 ML MG IVPB ONE (17:55)
[2024-01-02] MEDS: ACETAMINOPHEN 1000 MG/100 ML BAG IVPB ONE (17:55)
[2024-01-02 18:06] LABS: HEMATOCRIT 40.3 % (35.4-49); HEMOGLOBIN 13.8 GM/dL (11.7-16.9); MCHC 34.3 g/dl (32.0-35.9); MEAN CELL VOLUME 90.4 fl (80-96); PLATELET COUNT 169 10^3/uL (134-434); RBC 4.45 M/mm3 (4.00-5.60); RDW 16.3 % (11.9-15.9); WHITE BLOOD COUNT 5.4 K/mm3 (4.0-10.0)
[2024-01-02 18:15] LABS: INR 1.24 (0.83-1.09); PROTHROMBIN TIME (PATIENT) 14.2 SEC (9.7-13.0)
[2024-01-02 18:18] LABS: ACTIVATED PTT 35.1 SECONDS (25.2-36.5)
[2024-01-02 18:22] LABS: POTASSIUM 3.1 mmol/L (3.5-5.1)
[2024-01-02 18:25] LABS: CALCIUM 8.4 mg/dL (8.5-10.1)
[2024-01-02 18:26] LABS: ALBUMIN 2.7 g/dl (3.4-5.0); BLOOD UREA NITROGEN 5.8 mg/dL (7-18); MAGNESIUM 1.9 mg/dL (1.8-2.4)
[2024-01-02 18:29] LABS: CREATININE 0.6 mg/dL (0.55-1.3)
[2024-01-02 18:30] LABS: BILIRUBIN,TOTAL 0.9 mg/dL (0.2-1)
[2024-01-02 18:31] LABS: TOT PROT 6.7 g/dl (6.4-8.2)
[2024-01-02] MEDS ORDERED: KCL 10 MEQ IVPB 10 MEQ/100 ML INFUS.BAG IVPB SCH (19:30)
[2024-01-02] MEDS ORDERED: POTASSIUM CHLORIDE ORAL LIQUID 20 MEQ/15 ML ONE (20:39)
[2024-01-02] MEDS ORDERED: chlordiazePOXIDE HCL 25 MG CAPSULE ONE (20:40)
[2024-01-02] MEDS: POTASSIUM CHLORIDE ORAL LIQUID 20 MEQ/15 ML PO ONE (20:46)
[2024-01-02] MEDS: chlordiazePOXIDE HCL 25 MG CAPSULE PO ONE (20:46)
[2024-01-02] MEDS ORDERED: morphine SULFATE 4 MG/ML VIAL ONE (21:30)
[2024-01-02] MEDS: morphine CARPU-JECT 4 MG/1 ML DISP.SYRIN IVPUSH ONE (21:36)
[2024-01-02] MEDS: FOLIC ACID INJECTION - 1 MG, THIAMINE HCL 100 MG, MULTIVIT INJECTION ADULT 10 ML in SOD... IVPB ONE (23:17)
[2024-01-02] MEDS ORDERED: CARVEDILOL 3.125 MG TABLET (FP) ONE (23:35)
[2024-01-02] MEDS ORDERED: SPIRONOLACTONE 25 MG TABLET ONE (23:35)
[2024-01-03] MEDS: RIFAXIMIN 550 MG TABLET PO SCH (00:07)
[2024-01-03] MEDS: CARVEDILOL 3.125 MG TABLET (FP) PO SCH (00:07)
[2024-01-03] MEDS: SPIRONOLACTONE 25 MG TABLET PO SCH (00:07)
[2024-01-03] MEDS: POTASSIUM CHLORIDE TABS 20 MEQ TABLET.ER (FP) PO ONE (01:26)
[2024-01-03 03:21] VITALS: RESP 18
[2024-01-03] MEDS: GABAPENTIN 300 MG CAPSULE PO SCH (06:42)
[2024-01-03 08:50] LABS: HEMATOCRIT 33.8 % (35.4-49); HEMOGLOBIN 11.6 GM/dL (11.7-16.9); MCH 31.2 pg (25.7-33.7); MCHC 34.3 g/dl (32.0-35.9); MEAN CELL VOLUME 90.8 fl (80-96); MEAN PLT VOLUME 6.4 fl (7.5-11.1); PLATELET COUNT 126 10^3/uL (134-434); RBC 3.72 M/mm3 (4.00-5.60); RDW 16.2 % (11.9-15.9); WHITE BLOOD COUNT 3.8 K/mm3 (4.0-10.0)
[2024-01-03 09:10] LABS: CALCIUM 7.9 mg/dL (8.5-10.1)
[2024-01-03 09:11] LABS: ALBUMIN 2.2 g/dl (3.4-5.0); BLOOD UREA NITROGEN 6.4 mg/dL (7-18); MAGNESIUM 1.6 mg/dL (1.8-2.4)
[2024-01-03] MEDS: TAMSULOSIN HCL 0.4 MG CAP PO SCH (09:13)
[2024-01-03 09:14] LABS: CREATININE 0.6 mg/dL (0.55-1.3); PHOSPHOROUS 3.4 mg/dL (2.5-4.9)
[2024-01-03 09:15] LABS: BILIRUBIN,TOTAL 0.9 mg/dL (0.2-1); TOT PROT 5.4 g/dl (6.4-8.2)
[2024-01-03] MEDS: PANTOPRAZOLE SODIUM 40 MG VIAL IVPUSH SCH (09:40)
[2024-01-03] MEDS: FOLIC ACID 1 MG TABLET (FP) PO SCH (09:42)
[2024-01-03] MEDS: THIAMINE HCL 200 MG/2 ML VIAL IVPB ONE (09:56)
[2024-01-03] MEDS ORDERED: PATIENT'S OWN MEDICATION (NON-FORMULARY) (Tenofovir Alafenamide 25 MG Tablet) PO SCH (10:00)
[2024-01-03] MEDS ORDERED: THIAMINE HCL 200 MG/2 ML VIAL IVPB SCH (10:00)
[2024-01-03] MEDS: NICOTINE 7 MG/24 HOURS TOPICAL PATCH TD SCH (12:06)
[2024-01-03] MEDS: FUROSEMIDE 40 MG TABLET (FP) PO SCH (15:38)
[2024-01-03] MEDS: HEPARIN NA (PORCINE) 5,000 UNITS/ML 1ML VIAL SQ SCH (15:42)
[2024-01-03] MEDS: MAGNESIUM SULF 50% (8.12 MEQ/2 ML-1 GM VIAL) IVPB ONE (16:33)
[2024-01-03] MEDS: MELATONIN 5 MG TABLETS PO PRN (21:59)
[2024-01-03] MEDS: LIDOCAINE 4% PATCH TP ONE (22:01)
[2024-01-03] MEDS: LIDOCAINE PATCH REMOVAL MC SCH (22:12)
[2024-01-04 08:35] LABS: HEMATOCRIT 34.9 % (35.4-49); HEMOGLOBIN 11.7 GM/dL (11.7-16.9); MCH 30.6 pg (25.7-33.7); MCHC 33.6 g/dl (32.0-35.9); MEAN CELL VOLUME 90.8 fl (80-96); MEAN PLT VOLUME 6.9 fl (7.5-11.1); PLATELET COUNT 109 10^3/uL (134-434); RBC 3.84 M/mm3 (4.00-5.60); RDW 16.6 % (11.9-15.9); WHITE BLOOD COUNT 4.2 K/mm3 (4.0-10.0)
[2024-01-04 08:50] LABS: POTASSIUM 3.5 mmol/L (3.5-5.1)
[2024-01-04 08:58] LABS: BLOOD UREA NITROGEN 10.3 mg/dL (7-18); MAGNESIUM 1.8 mg/dL (1.8-2.4)
[2024-01-04 08:59] LABS: ALBUMIN 2.3 g/dl (3.4-5.0)
[2024-01-04 09:01] LABS: PHOSPHOROUS 3.2 mg/dL (2.5-4.9)
[2024-01-04 09:02] LABS: CREATININE 0.6 mg/dL (0.55-1.3)
[2024-01-04 09:03] LABS: BILIRUBIN,TOTAL 1.6 mg/dL (0.2-1); CALCIUM 8.4 mg/dL (8.5-10.1); TOT PROT 5.8 g/dl (6.4-8.2)
[2024-01-04] MEDS: MULTIVITAMINS (DAILY MVI) TABLET (FP) PO SCH (10:37)
[2024-01-04] MEDS: THIAMINE 100 MG TABLET PO SCH (10:37)
[2024-01-04] MEDS: MAG HYDROX/AL HYDROX/SIMETH 30 ML UNIT-DOSE CUP PO PRN (12:32)
[2024-01-04 15:01] LABS: BILIRUBIN,DIRECT 0.5 mg/dL (0.0-0.2)
[2024-01-04] MEDS: REMDESIVIR 200 MG in SODIUM CHLORIDE 250 ML IVPB ONE (20:28)
[2024-01-04 23:28] VITALS: BP 117/72; PULSE 60; TEMP 97
[2024-01-05 08:10] LABS: HEMATOCRIT 33.1 % (35.4-49); HEMOGLOBIN 11.2 GM/dL (11.7-16.9); MCH 30.8 pg (25.7-33.7); MCHC 33.7 g/dl (32.0-35.9); MEAN CELL VOLUME 91.4 fl (80-96); MEAN PLT VOLUME 7.2 fl (7.5-11.1); PLATELET COUNT 115 10^3/uL (134-434); RBC 3.62 M/mm3 (4.00-5.60); RDW 16.2 % (11.9-15.9); WHITE BLOOD COUNT 5.1 K/mm3 (4.0-10.0)
[2024-01-05 08:21] LABS: POTASSIUM 3.7 mmol/L (3.5-5.1)
[2024-01-05 08:23] LABS: CALCIUM 8.4 mg/dL (8.5-10.1)
[2024-01-05 08:24] LABS: ALBUMIN 2.2 g/dl (3.4-5.0); BLOOD UREA NITROGEN 11.3 mg/dL (7-18); MAGNESIUM 1.6 mg/dL (1.8-2.4)
[2024-01-05 08:27] LABS: CREATININE 0.8 mg/dL (0.55-1.3); PHOSPHOROUS 2.7 mg/dL (2.5-4.9)
[2024-01-05 08:28] LABS: BILIRUBIN,TOTAL 1.1 mg/dL (0.2-1); TOT PROT 5.5 g/dl (6.4-8.2)
[2024-01-05] MEDS ORDERED: REMDESIVIR 200 MG in SODIUM CHLORIDE 250 ML IVPB ONE (10:00)
[2024-01-05] MEDS ORDERED: DEXAMETHASONE SOD PHOSPHATE 10 MG/1 ML VIAL IVPUSH SCH (10:00)
[2024-01-05] MEDS ORDERED: REMDESIVIR 100 MG in SODIUM CHLORIDE 250 ML IVPB SCH (18:00)
== END 2024-01-05 08:54 | disposition left against medical advice (07) ==
LOC: JER 16:26 → JERBED 18:55 → UNDOADMOB 18:55 → OBSVTOIN 21:58 → INTOOBSV 21:58 → JERBED 01-03 02:41 → J5S 01-03 02:41 → JERBED 01-03 10:34
PROVIDERS: ADMIT Internal Medicine; ATTEND Internal Medicine
PROC: 3E033GC Introduction of Other Therapeutic Substance into Peripheral Vein, Percutaneous Approach (ICD-10-PCS; principal; 2024-01-03)
PROC: 3E033NZ Introduction of Analgesics, Hypnotics, Sedatives into Peripheral Vein, Percutaneous Approach (ICD-10-PCS; 2024-01-03)
PROC: 3E033NZ Introduction of Analgesics, Hypnotics, Sedatives into Peripheral Vein, Percutaneous Approach (ICD-10-PCS; 2024-01-03)
DX: K70.31 Alcoholic cirrhosis of liver with ascites (principal); K86.1 Other chronic pancreatitis; I10 Essential (primary) hypertension; U07.1 COVID-19; J44.9 Chronic obstructive pulmonary disease, unspecified; Z91.013 Allergy to seafood
CPT/HCPCS: 36415; 76942-TC; 80053; 80307; 82140; 82248; 82962; 83615; 83690; 83735; 84100; 85025; 85027; 85610; 85730; 86850; 86900; 86901; 87635; 93005; 93010; 96365; 96375; 99285-25; G0378; G0463; J0131; J1644

== ENCOUNTER 2024-01-15 13:37 | Inpatient (IN) | payer OTHER ==
[2024-01-15 14:07] VITALS: BMI 22.3
[2024-01-15] MEDS ORDERED: ONDANSETRON *ODT* 4 MG TABLET SL PRN (15:27)
[2024-01-15] MEDS ORDERED: DICYCLOMINE HCL 10 MG CAPSULE PO PRN (15:27)
[2024-01-15] MEDS ORDERED: POLYETHYLENE GLYCOL (HEALTHYLAX) 3350 17 GM PACKET PO PRN (15:27)
[2024-01-15] MEDS ORDERED: MAG HYDROX/AL HYDROX/SIMETH 30 ML UNIT-DOSE CUP PO PRN (15:27)
[2024-01-15] MEDS ORDERED: guaiFENesin 600 MG TABLET.ER (FP) PO PRN (15:27)
[2024-01-15] MEDS ORDERED: LOPERAMIDE HCL 2 MG CAPSULE PO PRN (15:27)
[2024-01-15] MEDS ORDERED: NICOTINE POLACRILEX 2 MG GUM BUC PRN (15:27)
[2024-01-15] MEDS ORDERED: BENZONATATE 200 MG CAPSULE PO PRN (15:27)
[2024-01-15] MEDS ORDERED: MAGNESIUM HYDROX 2400MG/30ML ORAL SUSPENSION 30 ML CUP PO PRN (15:27)
[2024-01-15] MEDS ORDERED: NICOTINE POLACRILEX 2 MG LOZENGE BC PRN (15:27)
[2024-01-15] MEDS ORDERED: BISMUTH SUBSALICYLATE 524 MG/30 ML PO PRN (15:27)
[2024-01-15] MEDS ORDERED: BENZOCAINE/MENTHOL (CHLORASEPTIC ) LOZENGE MM PRN (15:27)
[2024-01-15] MEDS ORDERED: P-EPHED 60MG/TRIPROLIDI 2.5MG TABLET PO PRN (15:27)
[2024-01-15] MEDS ORDERED: LORazepam 2 MG TABLET ONE (18:04)
[2024-01-15] MEDS: LORazepam 2 MG TABLET PO SCH (18:05)
[2024-01-15] MEDS: PANTOPRAZOLE 40 MG TABLET PO SCH (20:38)
[2024-01-15] MEDS: EMPAGLIFLOZIN (JARDIANCE) 10 MG TABLET PO SCH (20:45)
[2024-01-15] MEDS: GABAPENTIN 300 MG CAPSULE PO SCH (22:35)
[2024-01-15] MEDS: CARVEDILOL 3.125 MG TABLET (FP) PO SCH (22:36)
[2024-01-15] MEDS: THIAMINE 100 MG TABLET PO SCH (22:36)
[2024-01-15] MEDS: SPIRONOLACTONE 25 MG TABLET PO SCH (22:36)
[2024-01-15] MEDS: IBUPROFEN 400 MG TABLET (FP) PO PRN (22:42)
[2024-01-15] MEDS: MELATONIN 5 MG TABLETS PO SCH (22:44)
[2024-01-15] MEDS: RIFAXIMIN 550 MG TABLET PO SCH (23:34)
[2024-01-16] MEDS: FUROSEMIDE 40 MG TABLET (FP) PO SCH (08:25)
[2024-01-16] MEDS: TAMSULOSIN HCL 0.4 MG CAP PO SCH (08:27)
[2024-01-16] MEDS: FOLIC ACID 1 MG TABLET (FP) PO SCH (10:04)
[2024-01-16] MEDS: PRENATAL VITAMINS W/ FOLIC ACID TABLET (FP) PO SCH (10:04)
[2024-01-16 12:26] LABS: HEMATOCRIT 32.9 % (35.4-49); HEMOGLOBIN 11.3 GM/dL (11.7-16.9); MCH 31.4 pg (25.7-33.7); MCHC 34.2 g/dl (32.0-35.9); MEAN CELL VOLUME 91.8 fl (80-96); MEAN PLT VOLUME 7.1 fl (7.5-11.1); PLATELET COUNT 125 10^3/uL (134-434); RBC 3.58 M/mm3 (4.00-5.60); RDW 17.2 % (11.9-15.9); WHITE BLOOD COUNT 4.2 K/mm3 (4.0-10.0)
[2024-01-16 12:50] LABS: POTASSIUM 3.9 mmol/L (3.5-5.1)
[2024-01-16 12:56] LABS: CALCIUM 8.6 mg/dL (8.5-10.1)
[2024-01-16 12:57] LABS: ALBUMIN 2.3 g/dl (3.4-5.0); BLOOD UREA NITROGEN 15.3 mg/dL (7-18)
[2024-01-16 13:00] LABS: CREATININE 0.8 mg/dL (0.55-1.3)
[2024-01-16 13:01] LABS: BILIRUBIN,TOTAL 1.2 mg/dL (0.2-1)
[2024-01-16 13:02] LABS: TOT PROT 5.5 g/dl (6.4-8.2)
[2024-01-16] MEDS: IBUPROFEN 600 MG TABLET (FP) PO PRN (18:03)
[2024-01-16] MEDS: LORazepam 1 MG TABLET PO PRN (23:19)
[2024-01-17] MEDS: LORazepam 1 MG TABLET PO SCH (05:32)
[2024-01-17] MEDS: METHOCARBAMOL 500 MG TABLET PO PRN (10:57)
[2024-01-18] MEDS ORDERED: LORazepam 0.5 MG TABLET PO PRN
[2024-01-18] MEDS: LORazepam 0.5 MG TABLET PO SCH (05:48)
[2024-01-19] MEDS: LORazepam 0.5 MG TABLET PO ONE (05:40)
[2024-01-19 06:14] VITALS: RESP 17
[2024-01-19 09:36] VITALS: BP 116/74; PULSE 96; TEMP 97.3
== END 2024-01-19 09:30 | disposition home or self-care (01) | DRG 775 ==
LOC: YASAS 13:37 → Y6N 18:09
PROVIDERS: ADMIT Allergy & Immunology; ATTEND Surgery
PROC: HZ2ZZZZ Detoxification Services for Substance Abuse Treatment (ICD-10-PCS; principal; 2024-01-15)
DX: F10.230 Alcohol dependence with withdrawal, uncomplicated (principal); F17.210 Nicotine dependence, cigarettes, uncomplicated; F31.9 Bipolar disorder, unspecified; F10.282 Alcohol dependence with alcohol-induced sleep disorder; F41.9 Anxiety disorder, unspecified; I10 Essential (primary) hypertension; K70.31 Alcoholic cirrhosis of liver with ascites; K21.9 Gastro-esophageal reflux disease without esophagitis; K70.10 Alcoholic hepatitis without ascites; M41.9 Scoliosis, unspecified; N40.0 Benign prostatic hyperplasia without lower urinary tract symptoms; R26.89 Other abnormalities of gait and mobility; Z86.19 Personal history of other infectious and parasitic diseases; Z99.89 Dependence on other enabling machines and devices
CPT/HCPCS: 36415; 80053; 80305; 80307; 82962; 85027; 86593; 86780

== ENCOUNTER 2024-02-22 09:50 | Emergency (ER) | payer OTHER ==
[2024-02-22 10:32] VITALS: BP 106/64; PULSE 60; RESP 18; TEMP 97.7; BMI 22.1
[2024-02-22 12:09] LABS: BASO % 0.8 % (0-2.0); EOS % 0.6 % (0-4.5); HEMATOCRIT 37.4 % (35.4-49); HEMOGLOBIN 12.8 GM/dL (11.7-16.9); MCH 30.8 pg (25.7-33.7); MCHC 34.1 g/dl (32.0-35.9); MEAN CELL VOLUME 90.3 fl (80-96); MEAN PLT VOLUME 6.7 fl (7.5-11.1); MONO % 6.7 % (3.8-10.2); NEUT % 70.9 % (42.8-82.8); PLATELET COUNT 227 10^3/uL (134-434); RBC 4.14 M/mm3 (4.00-5.60); RDW 16.5 % (11.9-15.9); WHITE BLOOD COUNT 7.9 K/mm3 (4.0-10.0)
[2024-02-22 12:10] LABS: INR 1.36 (0.83-1.09); PROTHROMBIN TIME (PATIENT) 15.2 SEC (9.7-13.0)
[2024-02-22 12:13] LABS: ACTIVATED PTT 31.7 SECONDS (25.2-36.5)
[2024-02-22] MEDS ORDERED: ACETAMINOPHEN INJECTION 100 ML IVPB ONE (12:23)
[2024-02-22] MEDS ORDERED: LIDOCAINE 5% TOPICAL PATCH ONE (12:24)
[2024-02-22] MEDS: ACETAMINOPHEN 1000 MG/100 ML BAG IVPB ONE (12:24)
[2024-02-22 12:25] LABS: POTASSIUM 3.5 mmol/L (3.5-5.1)
[2024-02-22] MEDS: LIDOCAINE 4% PATCH TP ONE (12:25)
[2024-02-22 12:31] LABS: CALCIUM 7.9 mg/dL (8.5-10.1)
[2024-02-22 12:32] LABS: ALBUMIN 2.6 g/dl (3.4-5.0); BLOOD UREA NITROGEN 3.5 mg/dL (7-18)
[2024-02-22 12:35] LABS: CREATININE 0.7 mg/dL (0.55-1.3)
[2024-02-22 12:37] LABS: BILIRUBIN,TOTAL 0.8 mg/dL (0.2-1); TOT PROT 6.5 g/dl (6.4-8.2)
[2024-02-22] MEDS ORDERED: traMADol HCL 50 MG TABLET PO ONE (16:47)
[2024-02-22] MEDS ORDERED: traMADol HCL 50 MG TABLET ONE (16:56)
[2024-02-22] MEDS ORDERED: LIDOCAINE PATCH REMOVAL MC SCH (22:00)
== END 2024-02-22 17:58 | disposition home or self-care (01) ==
LOC: JER 09:50
PROC: 3E033NZ Introduction of Analgesics, Hypnotics, Sedatives into Peripheral Vein, Percutaneous Approach (ICD-10-PCS; principal; 2024-02-22)
DX: S00.03XA Contusion of scalp, initial encounter (principal); F10.129 Alcohol abuse with intoxication, unspecified; M54.50 Low back pain, unspecified; R10.9 Unspecified abdominal pain; R14.0 Abdominal distension (gaseous); W01.198A Fall on same level from slipping, tripping and stumbling with subsequent striking against other object, initial encounter; Y90.7 Blood alcohol level of 200-239 mg/100 ml
CPT/HCPCS: 36415; 70450-TC; 80053; 80307; 85025; 85610; 85730; 99284-25; J0131

== ENCOUNTER 2024-02-25 14:42 | Inpatient (IN) | payer OTHER ==
[2024-02-25 15:22] VITALS: BMI 22.7
[2024-02-25] MEDS ORDERED: POLYETHYLENE GLYCOL (HEALTHYLAX) 3350 17 GM PACKET PO PRN (17:13)
[2024-02-25] MEDS ORDERED: IBUPROFEN 400 MG TABLET (FP) PO PRN (17:13)
[2024-02-25] MEDS ORDERED: BENZONATATE 200 MG CAPSULE PO PRN (17:13)
[2024-02-25] MEDS ORDERED: METHOCARBAMOL 500 MG TABLET PO PRN (17:13)
[2024-02-25] MEDS ORDERED: hydrOXYzine PAMOATE 25 MG CAPSULE (FP) PO PRN (17:13)
[2024-02-25] MEDS ORDERED: IBUPROFEN 600 MG TABLET (FP) PO PRN (17:13)
[2024-02-25] MEDS ORDERED: guaiFENesin 600 MG TABLET.ER (FP) PO PRN (17:13)
[2024-02-25] MEDS ORDERED: NALOXONE HCL 0.4 MG/ML VIAL IM PRN (17:13)
[2024-02-25] MEDS ORDERED: MAGNESIUM HYDROX 2400MG/30ML ORAL SUSPENSION 30 ML CUP PO PRN (17:13)
[2024-02-25] MEDS ORDERED: MAG HYDROX/AL HYDROX/SIMETH 30 ML UNIT-DOSE CUP PO PRN (17:13)
[2024-02-25] MEDS ORDERED: NALOXONE (NARCAN) HCL 4 MG/0.1 ML SPRAY NS PRN (17:13)
[2024-02-25] MEDS ORDERED: DICYCLOMINE HCL 10 MG CAPSULE PO PRN (17:13)
[2024-02-25] MEDS ORDERED: ONDANSETRON *ODT* 4 MG TABLET SL PRN (17:13)
[2024-02-25] MEDS ORDERED: LOPERAMIDE HCL 2 MG CAPSULE PO PRN (17:13)
[2024-02-25] MEDS ORDERED: ACETAMINOPHEN 325 MG TABLET (FP) PO PRN (17:13)
[2024-02-25] MEDS ORDERED: BENZOCAINE/MENTHOL (CHLORASEPTIC ) LOZENGE MM PRN (17:13)
[2024-02-25] MEDS: LORazepam 1 MG TABLET PO PRN (18:35)
[2024-02-25] MEDS: MELATONIN 5 MG TABLETS PO SCH (22:11)
[2024-02-25] MEDS: RIFAXIMIN 550 MG TABLET PO SCH (22:11)
[2024-02-25] MEDS: THIAMINE 100 MG TABLET PO SCH (22:11)
[2024-02-25] MEDS: LORazepam 2 MG TABLET PO SCH (22:11)
[2024-02-25] MEDS: CARVEDILOL 3.125 MG TABLET (FP) PO SCH (22:11)
[2024-02-25] MEDS: BISMUTH SUBSALICYLATE 524 MG/30 ML PO PRN (22:13)
[2024-02-26] MEDS: FUROSEMIDE 40 MG TABLET (FP) PO SCH (06:23)
[2024-02-26 09:04] LABS: CHLORIDE 110 mmol/L (98-107); POTASSIUM 3.5 mmol/L (3.5-5.1); SODIUM 140 mmol/L (136-145)
[2024-02-26 09:05] LABS: CALCIUM 8.3 mg/dL (8.5-10.1)
[2024-02-26 09:06] LABS: ALBUMIN 2.3 g/dl (3.4-5.0); ANION GAP 6 mmol/L (4-13); BLOOD UREA NITROGEN 6.3 mg/dL (7-18); CO2 24 mmol/L (21-32); GLUCOSE,RANDOM 124 mg/dL (74-106)
[2024-02-26 09:10] LABS: CREATININE 0.7 mg/dL (0.55-1.3); HEMATOCRIT 34.4 % (35.4-49); HEMOGLOBIN 11.9 GM/dL (11.7-16.9); MCHC 34.6 g/dl (32.0-35.9); MEAN CELL VOLUME 89.7 fl (80-96); MEAN PLT VOLUME 6.8 fl (7.5-11.1); PLATELET COUNT 128 10^3/uL (134-434); RBC 3.84 M/mm3 (4.00-5.60); RDW 16.7 % (11.9-15.9); SGOT/AST 40 U/L (15-37); SGPT/ALT 18 U/L (13-61)
[2024-02-26 09:12] LABS: ALK PHOS 201 U/L (45-117); BILIRUBIN,TOTAL 0.8 mg/dL (0.2-1); TOT PROT 5.9 g/dl (6.4-8.2)
[2024-02-26] MEDS: TAMSULOSIN HCL 0.4 MG CAP PO SCH (09:25)
[2024-02-26] MEDS: PANTOPRAZOLE 40 MG TABLET PO SCH (10:25)
[2024-02-26] MEDS: PRENATAL VITAMINS W/ FOLIC ACID TABLET (FP) PO SCH (10:26)
[2024-02-26] MEDS: NICOTINE 21 MG/24 HOURS TOPICAL PATCH TD SCH (10:34)
[2024-02-27] MEDS: LORazepam 1 MG TABLET PO SCH (06:00)
[2024-02-27] MEDS: LACTULOSE 20 GM/30 ML UDC (FOR ORAL USE ONLY) PO SCH (11:09)
[2024-02-27 16:42] VITALS: BP 131/87; PULSE 87; RESP 18; TEMP 97.7
[2024-02-28] MEDS ORDERED: LORazepam 0.5 MG TABLET PO PRN
[2024-02-28] MEDS ORDERED: LORazepam 0.5 MG TABLET PO SCH (05:00)
[2024-02-29] MEDS ORDERED: LORazepam 0.5 MG TABLET PO ONE (05:00)
== END 2024-02-27 17:58 | disposition left against medical advice (07) | DRG 770 ==
LOC: YASAS 14:42 → Y3N 16:57
PROVIDERS: ADMIT Allergy & Immunology; ATTEND Surgery
PROC: HZ2ZZZZ Detoxification Services for Substance Abuse Treatment (ICD-10-PCS; principal; 2024-02-25)
DX: F10.230 Alcohol dependence with withdrawal, uncomplicated (principal); F17.210 Nicotine dependence, cigarettes, uncomplicated; F39 Unspecified mood [affective] disorder; K74.60 Unspecified cirrhosis of liver; K21.9 Gastro-esophageal reflux disease without esophagitis; R29.6 Repeated falls; Z99.89 Dependence on other enabling machines and devices; Z91.199 Patient's noncompliance with other medical treatment and regimen due to unspecified reason; Z86.19 Personal history of other infectious and parasitic diseases; Z86.79 Personal history of other diseases of the circulatory system
CPT/HCPCS: 36415; 70450-TC; 80053; 80305; 80307; 82140; 85025; 85027; 85610; 85730; 86593; 86780; 93005; 93010; J0131

== ENCOUNTER 2024-02-28 02:53 | Emergency (ER) | payer OTHER ==
[2024-02-28 03:04] VITALS: PULSE 62; RESP 20; TEMP 97.9; BMI 23.3
[2024-02-28] MEDS ORDERED: ACETAMINOPHEN 500 MG TABLET (FP) ONE (03:30)
[2024-02-28 03:36] VITALS: BP 109/76
[2024-02-28] MEDS: ACETAMINOPHEN 500 MG TABLET (FP) PO ONE (03:38)
[2024-02-28] MEDS ORDERED: KETOROLAC TROMETHAMINE 30 MG/1 ML VIAL ONE (05:28)
[2024-02-28] MEDS: KETOROLAC TROMETHAMINE 30 MG/1 ML VIAL IM ONE (05:31)
== END 2024-02-28 05:59 | disposition home or self-care (01) ==
LOC: JER 02:53
PROC: 3E0133Z Introduction of Anti-inflammatory into Subcutaneous Tissue, Percutaneous Approach (ICD-10-PCS; principal; 2024-02-28)
DX: F10.129 Alcohol abuse with intoxication, unspecified (principal); M25.532 Pain in left wrist; W19.XXXA Unspecified fall, initial encounter
CPT/HCPCS: 70450-TC; 73110-TC-LT-FY; 73130-TC-LT-FY; 93005; 93010; 99285-25

== ENCOUNTER 2024-03-16 21:49 | Observation (INO) | payer OTHER ==
[2024-03-16 23:39] LABS: BASO % 0.6 % (0-2.0); EOS % 0.4 % (0-4.5); HEMATOCRIT 38.4 % (35.4-49); HEMOGLOBIN 13.1 GM/dL (11.7-16.9); LYMPH % 19.8 % (8-40); MCH 30.9 pg (25.7-33.7); MCHC 34.1 g/dl (32.0-35.9); MEAN CELL VOLUME 90.7 fl (80-96); MEAN PLT VOLUME 6.3 fl (7.5-11.1); MONO % 10.4 % (3.8-10.2); NEUT % 68.8 % (42.8-82.8); PLATELET COUNT 189 10^3/uL (134-434); RBC 4.24 M/mm3 (4.00-5.60); RDW 18.2 % (11.9-15.9); WHITE BLOOD COUNT 8.6 K/mm3 (4.0-10.0)
[2024-03-16 23:46] LABS: POTASSIUM 3.9 mmol/L (3.5-5.1)
[2024-03-16 23:48] LABS: ALBUMIN 2.6 g/dl (3.4-5.0); BLOOD UREA NITROGEN 7.1 mg/dL (7-18); CALCIUM 8.2 mg/dL (8.5-10.1)
[2024-03-16 23:49] LABS: MAGNESIUM 1.9 mg/dL (1.8-2.4)
[2024-03-16 23:51] LABS: BILIRUBIN,DIRECT 0.5 mg/dL (0.0-0.2)
[2024-03-16 23:52] LABS: CREATININE 0.6 mg/dL (0.55-1.3)
[2024-03-16 23:53] LABS: BILIRUBIN,TOTAL 1.1 mg/dL (0.2-1); TOT PROT 6.4 g/dl (6.4-8.2)
[2024-03-16 23:56] LABS: INR 1.26 (0.83-1.09); PROTHROMBIN TIME (PATIENT) 14.4 SEC (9.7-13.0)
[2024-03-16 23:58] LABS: ACTIVATED PTT 34.9 SECONDS (25.2-36.5)
[2024-03-17] MEDS ORDERED: KETOROLAC TROMETHAMINE 30 MG/1 ML VIAL ONE (00:11)
[2024-03-17] MEDS: KETOROLAC TROMETHAMINE 30 MG/1 ML VIAL IVPUSH ONE (00:23)
[2024-03-17] MEDS ORDERED: LIDOCAINE 4% PATCH TP ONE (01:59)
[2024-03-17] MEDS: LIDOCAINE 4% PATCH TP ONE (02:05)
[2024-03-17] MEDS ORDERED: THIAMINE HCL 200 MG/2 ML VIAL ONE (06:17)
[2024-03-17] MEDS: THIAMINE HCL 200 MG/2 ML VIAL IVPB SCH (06:23)
[2024-03-17] MEDS ORDERED: TAMSULOSIN HCL 0.4 MG CAP ONE (09:10)
[2024-03-17] MEDS: TAMSULOSIN HCL 0.4 MG CAP PO SCH (09:21)
[2024-03-17] MEDS ORDERED: THIAMINE 100 MG TABLET PO SCH (10:00)
[2024-03-17] MEDS: CARVEDILOL 3.125 MG TABLET (FP) PO SCH (10:26)
[2024-03-17] MEDS: LACTULOSE 20 GM/30 ML UDC (FOR ORAL USE ONLY) PO SCH (10:27)
[2024-03-17] MEDS: SPIRONOLACTONE 25 MG TABLET PO SCH (10:28)
[2024-03-17] MEDS: NICOTINE 21 MG/24 HOURS TOPICAL PATCH TD SCH (10:29)
[2024-03-17] MEDS: FOLIC ACID 1 MG TABLET (FP) PO SCH (10:29)
[2024-03-17] MEDS: RIFAXIMIN 550 MG TABLET PO SCH (12:34)
[2024-03-17] MEDS: FUROSEMIDE 40 MG TABLET (FP) PO SCH (14:23)
[2024-03-17] MEDS: ACETAMINOPHEN 325 MG TABLET (FP) PO PRN (14:23)
[2024-03-17 17:39] VITALS: BMI 23.9
[2024-03-17] MEDS: KETOROLAC TROMETHAMINE 15 MG/ML VIAL IM ONE (17:57)
[2024-03-17] MEDS: LIDOCAINE PATCH REMOVAL MC SCH (21:19)
[2024-03-18 07:49] LABS: HEMOGLOBIN 10.8 GM/dL (11.7-16.9); MCH 30.9 pg (25.7-33.7); MCHC 33.7 g/dl (32.0-35.9); MEAN CELL VOLUME 91.5 fl (80-96); MEAN PLT VOLUME 6.8 fl (7.5-11.1); PLATELET COUNT 120 10^3/uL (134-434); RDW 17.1 % (11.9-15.9); WHITE BLOOD COUNT 4.4 K/mm3 (4.0-10.0)
[2024-03-18 07:59] LABS: INR 1.47 (0.83-1.09); PROTHROMBIN TIME (PATIENT) 16.7 SEC (9.7-13.0)
[2024-03-18 08:00] LABS: POTASSIUM 3.4 mmol/L (3.5-5.1)
[2024-03-18 08:03] LABS: ALBUMIN 2.1 g/dl (3.4-5.0); MAGNESIUM 1.7 mg/dL (1.8-2.4)
[2024-03-18 08:04] LABS: CALCIUM 7.8 mg/dL (8.5-10.1)
[2024-03-18 08:05] LABS: BLOOD UREA NITROGEN 13.1 mg/dL (7-18)
[2024-03-18 08:07] LABS: CREATININE 0.8 mg/dL (0.55-1.3)
[2024-03-18 08:08] LABS: PHOSPHOROUS 3.7 mg/dL (2.5-4.9); TOT PROT 5.3 g/dl (6.4-8.2)
[2024-03-18 08:09] LABS: BILIRUBIN,TOTAL 1.4 mg/dL (0.2-1)
[2024-03-18] MEDS ORDERED: EMPAGLIFLOZIN (JARDIANCE) 10 MG TABLET PO SCH (10:00)
[2024-03-18] MEDS: POTASSIUM CHLORIDE TABS 20 MEQ TABLET.ER (FP) PO ONE (16:10)
[2024-03-18] MEDS: KETOROLAC TROMETHAMINE 15 MG/ML VIAL IM ONE (16:11)
[2024-03-18] MEDS: MAGNESIUM SULF 50% (8.12 MEQ/2 ML-1 GM VIAL) IVPB ONE (18:53)
[2024-03-19 08:56] LABS: HEMOGLOBIN 11.1 GM/dL (11.7-16.9); MCH 30.7 pg (25.7-33.7); MCHC 33.8 g/dl (32.0-35.9); MEAN CELL VOLUME 90.9 fl (80-96); MEAN PLT VOLUME 7.1 fl (7.5-11.1); PLATELET COUNT 127 10^3/uL (134-434); RBC 3.63 M/mm3 (4.00-5.60); RDW 17.7 % (11.9-15.9); WHITE BLOOD COUNT 5.2 K/mm3 (4.0-10.0)
[2024-03-19 09:18] LABS: POTASSIUM 3.3 mmol/L (3.5-5.1)
[2024-03-19 09:28] LABS: ALBUMIN 1.9 g/dl (3.4-5.0); CALCIUM 7.2 mg/dL (8.5-10.1)
[2024-03-19 09:29] LABS: BLOOD UREA NITROGEN 12.8 mg/dL (7-18); MAGNESIUM 1.8 mg/dL (1.8-2.4)
[2024-03-19 09:30] LABS: CREATININE 0.8 mg/dL (0.55-1.3); PHOSPHOROUS 3.5 mg/dL (2.5-4.9)
[2024-03-19 09:32] LABS: BILIRUBIN,TOTAL 1.3 mg/dL (0.2-1); TOT PROT 4.8 g/dl (6.4-8.2)
[2024-03-19] MEDS: LIDOCAINE 5% TOPICAL PATCH TP ONE (11:13)
[2024-03-19] MEDS: LIDOCAINE PATCH REMOVAL MC SCH (22:44)
[2024-03-19] MEDS: KETOROLAC TROMETHAMINE 15 MG/ML VIAL IVPUSH ONE (23:41)
[2024-03-20] MEDS: MELATONIN 5 MG TABLETS PO ONE (02:03)
[2024-03-20 08:29] LABS: INR 1.31 (0.83-1.09); PROTHROMBIN TIME (PATIENT) 14.9 SEC (9.7-13.0)
[2024-03-20 08:37] LABS: HEMATOCRIT 31.6 % (35.4-49); HEMOGLOBIN 10.8 GM/dL (11.7-16.9); MCH 31.1 pg (25.7-33.7); MCHC 34.2 g/dl (32.0-35.9); MEAN CELL VOLUME 90.9 fl (80-96); MEAN PLT VOLUME 7.1 fl (7.5-11.1); PLATELET COUNT 128 10^3/uL (134-434); RBC 3.48 M/mm3 (4.00-5.60); RDW 17.5 % (11.9-15.9); WHITE BLOOD COUNT 5.5 K/mm3 (4.0-10.0)
[2024-03-20 08:40] LABS: POTASSIUM 3.8 mmol/L (3.5-5.1)
[2024-03-20 08:47] LABS: BLOOD UREA NITROGEN 15.1 mg/dL (7-18); CALCIUM 7.9 mg/dL (8.5-10.1)
[2024-03-20 08:49] LABS: CREATININE 0.8 mg/dL (0.55-1.3)
[2024-03-20 08:51] LABS: TOT PROT 5.1 g/dl (6.4-8.2)
[2024-03-20] MEDS: LACTULOSE 20 GM/30 ML UDC (FOR ORAL USE ONLY) PO SCH (15:02)
[2024-03-20 15:22] LABS: COCAINE, UR NEGATIVE (NEGATIVE); METHADONE, UR NEGATIVE (NEGATIVE); OPIATES, URI NEGATIVE (NEGATIVE); URINE BARBITURATES NEGATIVE (NEGATIVE)
[2024-03-20 15:24] LABS: PHENCYCLIDINE,URINE NEGATIVE (NEGATIVE); URINE AMPHETAMINES NEGATIVE (NEGATIVE); URINE BENZODIAZEPINES POSITIVE (NEGATIVE)
[2024-03-20] MEDS: KETOROLAC TROMETHAMINE 15 MG/ML VIAL IVPUSH ONE (18:24)
[2024-03-21] MEDS: ACETAMINOPHEN 325 MG TABLET (FP) PO PRN (00:36)
[2024-03-21 08:10] LABS: HEMATOCRIT 32.6 % (35.4-49); HEMOGLOBIN 10.9 GM/dL (11.7-16.9); MCH 30.6 pg (25.7-33.7); MCHC 33.3 g/dl (32.0-35.9); MEAN CELL VOLUME 91.8 fl (80-96); MEAN PLT VOLUME 6.9 fl (7.5-11.1); PLATELET COUNT 136 10^3/uL (134-434); RBC 3.55 M/mm3 (4.00-5.60); RDW 17.8 % (11.9-15.9); WHITE BLOOD COUNT 5.7 K/mm3 (4.0-10.0)
[2024-03-21 08:26] LABS: POTASSIUM 3.5 mmol/L (3.5-5.1)
[2024-03-21 08:27] LABS: BLOOD UREA NITROGEN 12.3 mg/dL (7-18)
[2024-03-21 08:30] LABS: CREATININE 0.7 mg/dL (0.55-1.3)
[2024-03-21 08:32] LABS: BILIRUBIN,TOTAL 0.6 mg/dL (0.2-1); TOT PROT 5.2 g/dl (6.4-8.2)
[2024-03-21 08:48] LABS: INR 1.25 (0.83-1.09)
[2024-03-21] MEDS: KETOROLAC TROMETHAMINE 15 MG/ML VIAL IVPUSH ONE (09:22)
[2024-03-21 11:13] VITALS: BP 103/67; PULSE 63; RESP 19; TEMP 97.9
[2024-03-22] MEDS ORDERED: THIAMINE 100 MG TABLET PO SCH (10:00)
== END 2024-03-21 11:55 | disposition home or self-care (01) ==
LOC: JER 21:49 → JERBED 03-17 03:38 → J4W 03-17 09:53
PROVIDERS: ADMIT Internal Medicine; ATTEND Internal Medicine
PROC: 0W9G3ZZ Drainage of Peritoneal Cavity, Percutaneous Approach (ICD-10-PCS; principal; 2024-03-17)
PROC: 3E0333Z Introduction of Anti-inflammatory into Peripheral Vein, Percutaneous Approach (ICD-10-PCS; 2024-03-17)
PROC: 3E033NZ Introduction of Analgesics, Hypnotics, Sedatives into Peripheral Vein, Percutaneous Approach (ICD-10-PCS; 2024-03-17)
PROC: 3E033GC Introduction of Other Therapeutic Substance into Peripheral Vein, Percutaneous Approach (ICD-10-PCS; 2024-03-17)
DX: F10.129 Alcohol abuse with intoxication, unspecified (principal); K74.60 Unspecified cirrhosis of liver; R18.8 Other ascites; J44.9 Chronic obstructive pulmonary disease, unspecified; B19.20 Unspecified viral hepatitis C without hepatic coma; S22.31XA Fracture of one rib, right side, initial encounter for closed fracture; X58.XXXA Exposure to other specified factors, initial encounter; Y93.89 Activity, other specified; Y92.89 Other specified places as the place of occurrence of the external cause; Z91.013 Allergy to seafood
CPT/HCPCS: 36415; 70450-TC; 70486-TC; 71250-TC; 72125-TC; 76942-TC; 80053; 80061; 80307; 82140; 82248; 83690; 83735; 84100; 84484; 85025; 85027; 85610; 85730; 86850; 86900; 86901; 87635; 93005; 93010; 96372; 96374; 96375; 96376; 99285-25; G0378; G0463

== ENCOUNTER 2024-03-25 01:07 | Inpatient (IN) | payer OTHER ==
[2024-03-25] MEDS ORDERED: chlordiazePOXIDE HCL 25 MG CAPSULE ONE (03:30)
[2024-03-25] MEDS ORDERED: ACETAMINOPHEN 500 MG TABLET (FP) ONE (03:31)
[2024-03-25] MEDS: ACETAMINOPHEN 500 MG TABLET (FP) PO ONE (03:37)
[2024-03-25] MEDS: chlordiazePOXIDE HCL 25 MG CAPSULE PO ONE (03:37)
[2024-03-25] MEDS ORDERED: morphine SULFATE 4 MG/ML VIAL ONE ×2 (05:59→08:28)
[2024-03-25] MEDS: morphine CARPU-JECT 4 MG/1 ML DISP.SYRIN IVPUSH ONE (06:18)
[2024-03-25 06:47] LABS: INR 1.22 (0.83-1.09); PROTHROMBIN TIME (PATIENT) 13.9 SEC (9.7-13.0)
[2024-03-25 06:49] LABS: ACTIVATED PTT 30.4 SECONDS (25.2-36.5)
[2024-03-25 06:53] LABS: ALBUMIN 2.2 g/dl (3.4-5.0)
[2024-03-25 06:54] LABS: BLOOD UREA NITROGEN 6.1 mg/dL (7-18)
[2024-03-25 06:57] LABS: CREATININE 0.5 mg/dL (0.55-1.3)
[2024-03-25 06:58] LABS: TOT PROT 5.8 g/dl (6.4-8.2)
[2024-03-25 07:04] LABS: BASO % 0.5 % (0-2.0); EOS % 0.3 % (0-4.5); HEMATOCRIT 32.9 % (35.4-49); HEMOGLOBIN 11.2 GM/dL (11.7-16.9); LYMPH % 15.8 % (8-40); MCH 30.8 pg (25.7-33.7); MCHC 34.2 g/dl (32.0-35.9); MEAN CELL VOLUME 90.1 fl (80-96); MEAN PLT VOLUME 6.5 fl (7.5-11.1); MONO % 14.7 % (3.8-10.2); NEUT % 68.7 % (42.8-82.8); PLATELET COUNT 235 10^3/uL (134-434); RBC 3.65 M/mm3 (4.00-5.60); RDW 17.8 % (11.9-15.9); WHITE BLOOD COUNT 8.9 K/mm3 (4.0-10.0)
[2024-03-25] MEDS: morphine SULFATE 4 MG/ML VIAL IVPUSH ONE (08:32)
[2024-03-25] MEDS ORDERED: KETOROLAC TROMETHAMINE 15 MG/ML VIAL IM PRN (09:49)
[2024-03-25 11:22] VITALS: BMI 24.5
[2024-03-25] MEDS ORDERED: chlordiazePOXIDE HCL 25 MG CAPSULE PO PRN (13:46)
[2024-03-25] MEDS: THIAMINE 100 MG TABLET PO SCH (14:44)
[2024-03-25] MEDS: FOLIC ACID 1 MG TABLET (FP) PO SCH (14:44)
[2024-03-25] MEDS: PANTOPRAZOLE 40 MG TABLET PO SCH (14:44)
[2024-03-25] MEDS: FUROSEMIDE 40 MG TABLET (FP) PO SCH (14:46)
[2024-03-25] MEDS: chlordiazePOXIDE HCL 25 MG CAPSULE PO SCH (14:48)
[2024-03-25] MEDS: ESCITALOPRAM OXALATE 10 MG TABLET PO SCH (14:56)
[2024-03-25] MEDS: SPIRONOLACTONE 25 MG TABLET PO SCH (14:56)
[2024-03-25] MEDS: CARVEDILOL 3.125 MG TABLET (FP) PO SCH (21:53)
[2024-03-25] MEDS: RIFAXIMIN 550 MG TABLET PO SCH (21:53)
[2024-03-26] MEDS: TAMSULOSIN HCL 0.4 MG CAP PO SCH (08:05)
[2024-03-26 09:52] LABS: BASO % 0.5 % (0-2.0); EOS % 1.3 % (0-4.5); HEMATOCRIT 29.6 % (35.4-49); LYMPH % 23.3 % (8-40); MCH 30.6 pg (25.7-33.7); MCHC 33.8 g/dl (32.0-35.9); MEAN CELL VOLUME 90.5 fl (80-96); MEAN PLT VOLUME 6.6 fl (7.5-11.1); MONO % 17.1 % (3.8-10.2); NEUT % 57.8 % (42.8-82.8); PLATELET COUNT 179 10^3/uL (134-434); RBC 3.27 M/mm3 (4.00-5.60); RDW 17.5 % (11.9-15.9); WHITE BLOOD COUNT 6.5 K/mm3 (4.0-10.0)
[2024-03-26] MEDS ORDERED: PATIENT'S OWN MEDICATION (NON-FORMULARY) (Tenofovir Alafenamide 25 MG Tablet) PO SCH (10:00)
[2024-03-26] MEDS: LACTULOSE 20 GM/30 ML UDC (FOR ORAL USE ONLY) PO SCH (10:04)
[2024-03-26 10:18] LABS: POTASSIUM 3.6 mmol/L (3.5-5.1)
[2024-03-26 10:35] LABS: BLOOD UREA NITROGEN 10.6 mg/dL (7-18); CALCIUM 7.9 mg/dL (8.5-10.1); MAGNESIUM 1.7 mg/dL (1.8-2.4)
[2024-03-26 10:38] LABS: CREATININE 0.7 mg/dL (0.55-1.3); PHOSPHOROUS 3.1 mg/dL (2.5-4.9)
[2024-03-26] MEDS: ACETAMINOPHEN 325 MG TABLET (FP) PO PRN (10:38)
[2024-03-26 10:39] LABS: BILIRUBIN,TOTAL 1.7 mg/dL (0.2-1); TOT PROT 5.3 g/dl (6.4-8.2)
[2024-03-26] MEDS: oxyCODONE HCL 5 MG TABLET PO PRN (13:01)
[2024-03-26] MEDS: ACETAMINOPHEN 1000 MG/100 ML BAG IVPB SCH (15:12)
[2024-03-26 15:59] LABS: BILIRUBIN,DIRECT 0.6 mg/dL (0.0-0.2)
[2024-03-26] MEDS: LORazepam 1 MG TABLET PO PRN (21:47)
[2024-03-26] MEDS: LIDOCAINE 4% PATCH TP SCH (21:47)
[2024-03-26] MEDS ORDERED: chlordiazePOXIDE HCL 25 MG CAPSULE PO SCH (22:00)
[2024-03-27] MEDS: LIDOCAINE 4% PATCH TP SCH (05:28)
[2024-03-27] MEDS: POTASSIUM CHLORIDE TABS 20 MEQ TABLET.ER (FP) PO ONE (05:55)
[2024-03-27 09:49] LABS: HEMATOCRIT 26.6 % (35.4-49); MCH 31.1 pg (25.7-33.7); MCHC 33.8 g/dl (32.0-35.9); MEAN PLT VOLUME 6.9 fl (7.5-11.1); PLATELET COUNT 157 10^3/uL (134-434); RBC 2.89 M/mm3 (4.00-5.60); RDW 17.4 % (11.9-15.9); WHITE BLOOD COUNT 5.7 K/mm3 (4.0-10.0)
[2024-03-27] MEDS: MAGNESIUM 2GM/50ML STERILE WATER IVPB IVPB ONE (09:49)
[2024-03-27 09:52] LABS: INR 1.48 (0.83-1.09); PROTHROMBIN TIME (PATIENT) 16.5 SEC (9.7-13.0)
[2024-03-27 09:55] LABS: ACTIVATED PTT 31.1 SECONDS (25.2-36.5)
[2024-03-27 10:05] LABS: POTASSIUM 3.3 mmol/L (3.5-5.1)
[2024-03-27 10:15] LABS: ALBUMIN 1.9 g/dl (3.4-5.0)
[2024-03-27 10:16] LABS: CALCIUM 7.5 mg/dL (8.5-10.1)
[2024-03-27 10:17] LABS: BILIRUBIN,DIRECT 0.5 mg/dL (0.0-0.2); BLOOD UREA NITROGEN 12.9 mg/dL (7-18); MAGNESIUM 1.7 mg/dL (1.8-2.4)
[2024-03-27 10:18] LABS: CREATININE 0.8 mg/dL (0.55-1.3)
[2024-03-27 10:20] LABS: TOT PROT 5.1 g/dl (6.4-8.2)
[2024-03-27] MEDS: LIDOCAINE PATCH REMOVAL MC SCH ×2 (10:34→10:35)
[2024-03-28 15:20] VITALS: RESP 18; TEMP 98.2
[2024-03-28] MEDS: oxyCODONE HCL 5 MG TABLET PO PRN (15:38)
[2024-03-28 23:11] VITALS: BP 123/78; PULSE 81
== END 2024-03-29 04:12 | DRG 342 ==
LOC: JER 01:07 → JERBED 08:27 → J6S 10:26
PROVIDERS: ADMIT Internal Medicine; ATTEND Internal Medicine
PROC: 2W3BX1Z Immobilization of Left Upper Arm using Splint (ICD-10-PCS; principal; 2024-03-25)
DX: S42.255A Nondisplaced fracture of greater tuberosity of left humerus, initial encounter for closed fracture (principal); K86.1 Other chronic pancreatitis; K70.30 Alcoholic cirrhosis of liver without ascites; E78.5 Hyperlipidemia, unspecified; F10.90 Alcohol use, unspecified, uncomplicated; F32.A Depression, unspecified; I10 Essential (primary) hypertension; J44.9 Chronic obstructive pulmonary disease, unspecified; N40.0 Benign prostatic hyperplasia without lower urinary tract symptoms; W19.XXXA Unspecified fall, initial encounter; Y93.9 Activity, unspecified; Y92.89 Other specified places as the place of occurrence of the external cause; Y99.9 Unspecified external cause status
CPT/HCPCS: 36415; 71045-TC-FY; 73030-TC-LT-FY; 73200-TC-RT; 80048; 80053; 80076; 82248; 83735; 84100; 85025; 85027; 85610; 85730; 86850; 86900; 86901; 93005; 93010; 97116-GP; 97162-GP; 99285-25; J0131

== ENCOUNTER 2024-04-16 14:04 | Inpatient (IN) | payer OTHER ==
[2024-04-16 15:41] LABS: BASO % 0.5 % (0-2.0); EOS % 0.3 % (0-4.5); HEMATOCRIT 34.6 % (35.4-49); LYMPH % 7.9 % (8-40); MCH 29.5 pg (25.7-33.7); MCHC 31.9 g/dl (32.0-35.9); MEAN CELL VOLUME 92.4 fl (80-96); MEAN PLT VOLUME 6.7 fl (7.5-11.1); MONO % 12.6 % (3.8-10.2); NEUT % 78.7 % (42.8-82.8); PLATELET COUNT 169 10^3/uL (134-434); RBC 3.74 M/mm3 (4.00-5.60); RDW 17.3 % (11.9-15.9); WHITE BLOOD COUNT 9.7 K/mm3 (4.0-10.0)
[2024-04-16 15:48] LABS: INR 1.3 (0.83-1.09); PROTHROMBIN TIME (PATIENT) 14.6 SEC (9.7-13.0)
[2024-04-16 15:51] LABS: ACTIVATED PTT 33.8 SECONDS (25.2-36.5)
[2024-04-16 16:09] LABS: CHLORIDE 109 mmol/L (98-107); POTASSIUM 4.1 mmol/L (3.5-5.1); SODIUM 143 mmol/L (136-145)
[2024-04-16 16:11] LABS: ALBUMIN 2.4 g/dl (3.4-5.0); CALCIUM 9.1 mg/dL (8.5-10.1)
[2024-04-16 16:12] LABS: ANION GAP 7 mmol/L (4-13); BLOOD UREA NITROGEN 13.3 mg/dL (7-18); CO2 26 mmol/L (21-32); GLUCOSE,RANDOM 114 mg/dL (74-106)
[2024-04-16 16:14] LABS: SGOT/AST 29 U/L (15-37); SGPT/ALT 12 U/L (13-61)
[2024-04-16 16:15] LABS: CREATININE 0.8 mg/dL (0.55-1.3)
[2024-04-16 16:16] LABS: BILIRUBIN,TOTAL 0.7 mg/dL (0.2-1); TOT PROT 6.5 g/dl (6.4-8.2)
[2024-04-16 16:17] LABS: ALK PHOS 155 U/L (45-117)
[2024-04-16 19:23] LABS: EPI CELLS 3 /uL (0-25.1); HYALINE CASTS 4 /uL (0-3.1); PH,URINE 7.5 (5.0-8.0); URINE APPEARANCE CLEAR; URINE BACTERIA >9,000 /uL (0-1359); URINE BILIRUBIN NEGATIVE (NEGATIVE); URINE COLOR YELLOW; URINE GLUCOSE (UA) NEGATIVE (NEGATIVE); URINE KETONE NEGATIVE (NEGATIVE); URINE LEUK ESTERASE 2+ (NEGATIVE); URINE NITRITE POSITIVE (NEGATIVE); URINE PROTEIN TRACE (NEGATIVE); URINE RBC 318 /uL (0-23.9); URINE WBC 511 /uL (0-25.8)
[2024-04-16] MEDS: THIAMINE 100 MG TABLET PO SCH (21:11)
[2024-04-16] MEDS: RIFAXIMIN 550 MG TABLET PO SCH (21:11)
[2024-04-16] MEDS: CARVEDILOL 3.125 MG TABLET (FP) PO SCH (21:11)
[2024-04-17] MEDS: TAMSULOSIN HCL 0.4 MG CAP PO SCH (09:35)
[2024-04-17] MEDS: FUROSEMIDE 40 MG TABLET (FP) PO SCH (09:35)
[2024-04-17] MEDS: LACTULOSE 20 GM/30 ML UDC (FOR ORAL USE ONLY) PO SCH ×2 (09:35→16:48)
[2024-04-17] MEDS: SPIRONOLACTONE 25 MG TABLET PO SCH (09:36)
[2024-04-17] MEDS ORDERED: PATIENT'S OWN MEDICATION (NON-FORMULARY) (Tenofovir Alafenamide 25 MG Tablet) PO SCH (10:00)
[2024-04-17 10:09] LABS: BASO % 0.2 % (0-2.0); EOS % 0.3 % (0-4.5); HEMATOCRIT 30.9 % (35.4-49); HEMOGLOBIN 9.9 GM/dL (11.7-16.9); LYMPH % 8.9 % (8-40); MCH 29.6 pg (25.7-33.7); MCHC 32.2 g/dl (32.0-35.9); MEAN CELL VOLUME 92.1 fl (80-96); MEAN PLT VOLUME 6.9 fl (7.5-11.1); MONO % 11.9 % (3.8-10.2); NEUT % 78.7 % (42.8-82.8); PLATELET COUNT 146 10^3/uL (134-434); RBC 3.35 M/mm3 (4.00-5.60); RDW 17.2 % (11.9-15.9); WHITE BLOOD COUNT 16.2 K/mm3 (4.0-10.0)
[2024-04-17] MEDS: CEFTRIAXONE 1 GM in DEXTROSE 5%-WATER - 50 ML IVPB SCH (10:18)
[2024-04-17 10:26] LABS: POTASSIUM 3.6 mmol/L (3.5-5.1)
[2024-04-17 10:38] LABS: BLOOD UREA NITROGEN 12.5 mg/dL (7-18)
[2024-04-17 10:40] LABS: CALCIUM 8.6 mg/dL (8.5-10.1)
[2024-04-17 10:42] LABS: CREATININE 0.6 mg/dL (0.55-1.3)
[2024-04-17 10:43] LABS: BILIRUBIN,TOTAL 0.7 mg/dL (0.2-1); TOT PROT 5.6 g/dl (6.4-8.2)
[2024-04-17] MEDS ORDERED: LACTULOSE 20 GM/30 ML UDC (FOR ORAL USE ONLY) PO SCH (11:15)
[2024-04-17 15:40] VITALS: BMI 25.8
[2024-04-17 18:42] LABS: BF WBC & OTHER NUCLEATED CELLS 167 /mm3; BODY FLUID MACROPHAGES 60 %; BODY FLUID MONOCYTE 4 %
[2024-04-17] MEDS: THIAMINE HCL 200 MG/2 ML VIAL IVPB SCH (21:40)
[2024-04-18 09:12] LABS: BASO % 0.4 % (0-2.0); EOS % 0.9 % (0-4.5); HEMATOCRIT 33.3 % (35.4-49); HEMOGLOBIN 10.7 GM/dL (11.7-16.9); LYMPH % 10.9 % (8-40); MCHC 32.2 g/dl (32.0-35.9); MEAN PLT VOLUME 7.1 fl (7.5-11.1); MONO % 10.3 % (3.8-10.2); NEUT % 77.5 % (42.8-82.8); PLATELET COUNT 147 10^3/uL (134-434); RBC 3.58 M/mm3 (4.00-5.60); RDW 17.2 % (11.9-15.9); WHITE BLOOD COUNT 9.3 K/mm3 (4.0-10.0)
[2024-04-18 09:34] LABS: POTASSIUM 3.3 mmol/L (3.5-5.1)
[2024-04-18 09:36] LABS: ALBUMIN 2.1 g/dl (3.4-5.0); CALCIUM 8.4 mg/dL (8.5-10.1)
[2024-04-18 09:37] LABS: BLOOD UREA NITROGEN 13.4 mg/dL (7-18)
[2024-04-18 09:39] LABS: CREATININE 0.7 mg/dL (0.55-1.3)
[2024-04-18 09:40] LABS: TOT PROT 5.8 g/dl (6.4-8.2)
[2024-04-18 09:41] LABS: BILIRUBIN,TOTAL 0.7 mg/dL (0.2-1)
[2024-04-18] MEDS: ALBUMIN HUMAN 25% 12.5 GM/50 ML VIAL IV SCH (11:16)
[2024-04-18 14:09] LABS: BODY FLUID ALBUMIN 1.4 g/dL (Not Estab.)
[2024-04-18 14:56] LABS: HEPATITIS B SURFACE AG CONFIRM CONFIRMED (NONREACTIVE)
[2024-04-18] MEDS: LACTULOSE 20 GM/30 ML UDC (FOR ORAL USE ONLY) PO SCH (17:14)
[2024-04-19 16:53] LABS: BASO % 0.6 % (0-2.0); EOS % 4.2 % (0-4.5); HEMOGLOBIN 10.4 GM/dL (11.7-16.9); LYMPH % 22.2 % (8-40); MCH 30.2 pg (25.7-33.7); MCHC 32.7 g/dl (32.0-35.9); MEAN CELL VOLUME 92.3 fl (80-96); MEAN PLT VOLUME 7.2 fl (7.5-11.1); MONO % 15.7 % (3.8-10.2); NEUT % 57.3 % (42.8-82.8); PLATELET COUNT 165 10^3/uL (134-434); RBC 3.46 M/mm3 (4.00-5.60); RDW 17.4 % (11.9-15.9); WHITE BLOOD COUNT 5.2 K/mm3 (4.0-10.0)
[2024-04-19 17:10] LABS: POTASSIUM 3.3 mmol/L (3.5-5.1)
[2024-04-19 17:13] LABS: CALCIUM 8.8 mg/dL (8.5-10.1)
[2024-04-19 17:16] LABS: CREATININE 0.8 mg/dL (0.55-1.3)
[2024-04-19 17:18] LABS: BILIRUBIN,TOTAL 0.5 mg/dL (0.2-1); TOT PROT 6.2 g/dl (6.4-8.2)
[2024-04-19 17:43] LABS: ALBUMIN 2.6 g/dl (3.4-5.0)
[2024-04-20 10:16] LABS: BASO % 0.9 % (0-2.0); EOS % 5.6 % (0-4.5); HEMATOCRIT 37.9 % (35.4-49); HEMOGLOBIN 12.2 GM/dL (11.7-16.9); LYMPH % 28.9 % (8-40); MCH 29.8 pg (25.7-33.7); MCHC 32.2 g/dl (32.0-35.9); MEAN CELL VOLUME 92.6 fl (80-96); MONO % 14.1 % (3.8-10.2); NEUT % 50.5 % (42.8-82.8); PLATELET COUNT 224 10^3/uL (134-434); RDW 17.2 % (11.9-15.9); WHITE BLOOD COUNT 6.2 K/mm3 (4.0-10.0)
[2024-04-20 10:36] LABS: POTASSIUM 3.3 mmol/L (3.5-5.1)
[2024-04-20 11:07] LABS: BLOOD UREA NITROGEN 11.7 mg/dL (7-18)
[2024-04-20 11:10] LABS: CREATININE 0.7 mg/dL (0.55-1.3)
[2024-04-20 11:12] LABS: BILIRUBIN,TOTAL 0.8 mg/dL (0.2-1)
[2024-04-20] MEDS: CEFUROXIME AXETIL 500 MG TABLET PO SCH (21:11)
[2024-04-22 09:44] LABS: BASO % 0.7 % (0-2.0); EOS % 3.9 % (0-4.5); HEMATOCRIT 33.3 % (35.4-49); LYMPH % 20.8 % (8-40); MEAN CELL VOLUME 90.8 fl (80-96); MEAN PLT VOLUME 6.9 fl (7.5-11.1); NEUT % 57.6 % (42.8-82.8); PLATELET COUNT 195 10^3/uL (134-434); RBC 3.66 M/mm3 (4.00-5.60); RDW 17.3 % (11.9-15.9); WHITE BLOOD COUNT 6.2 K/mm3 (4.0-10.0)
[2024-04-22 10:04] LABS: POTASSIUM 3.2 mmol/L (3.5-5.1)
[2024-04-22 10:07] LABS: ALBUMIN 2.5 g/dl (3.4-5.0); BLOOD UREA NITROGEN 13.4 mg/dL (7-18); CALCIUM 8.6 mg/dL (8.5-10.1)
[2024-04-22 10:10] LABS: CREATININE 0.7 mg/dL (0.55-1.3)
[2024-04-22 10:12] LABS: BILIRUBIN,TOTAL 0.5 mg/dL (0.2-1); TOT PROT 6.3 g/dl (6.4-8.2)
[2024-04-22] MEDS: PEG 3350/NA SULF BICARB CL/KCL 4000 ML SOLN.RECON PO ONE (16:53)
[2024-04-22] MEDS: BISACODYL 5 MG TABLET.DR (FP) PO ONE (16:53)
[2024-04-22] MEDS: ARIPiprazole 5 MG TABLET PO ONE (18:59)
[2024-04-22] MEDS: LACTULOSE 20 GM/30 ML UDC (FOR ORAL USE ONLY) PO SCH (23:22)
[2024-04-23 10:11] VITALS: RESP 18
[2024-04-23] MEDS: POTASSIUM CHLORIDE ORAL LIQUID 20 MEQ/15 ML PO SCH (11:55)
[2024-04-23 13:34] LABS: BASO % 0.8 % (0-2.0); EOS % 2.9 % (0-4.5); HEMOGLOBIN 12.2 GM/dL (11.7-16.9); LYMPH % 28.1 % (8-40); MCH 29.8 pg (25.7-33.7); MCHC 32.9 g/dl (32.0-35.9); MEAN CELL VOLUME 90.7 fl (80-96); MONO % 11.9 % (3.8-10.2); NEUT % 56.3 % (42.8-82.8); PLATELET COUNT 278 10^3/uL (134-434); RBC 4.08 M/mm3 (4.00-5.60); RDW 17.2 % (11.9-15.9); WHITE BLOOD COUNT 7.3 K/mm3 (4.0-10.0)
[2024-04-23 13:38] LABS: INR 1.29 (0.83-1.09); PROTHROMBIN TIME (PATIENT) 14.7 SEC (9.7-13.0)
[2024-04-23 14:05] LABS: POTASSIUM 3.3 mmol/L (3.5-5.1)
[2024-04-23 14:18] LABS: CALCIUM 9.3 mg/dL (8.5-10.1)
[2024-04-23 14:19] LABS: BLOOD UREA NITROGEN 9.7 mg/dL (7-18)
[2024-04-23 14:22] LABS: CREATININE 0.7 mg/dL (0.55-1.3)
[2024-04-23 14:23] LABS: BILIRUBIN,TOTAL 0.9 mg/dL (0.2-1); TOT PROT 7.5 g/dl (6.4-8.2)
[2024-04-24 10:09] LABS: POTASSIUM 3.5 mmol/L (3.5-5.1)
[2024-04-24 10:13] LABS: CALCIUM 8.7 mg/dL (8.5-10.1)
[2024-04-24 10:14] LABS: BLOOD UREA NITROGEN 8.6 mg/dL (7-18)
[2024-04-24 10:17] LABS: CREATININE 0.7 mg/dL (0.55-1.3)
[2024-04-25] MEDS: oxyCODONE HCL 5 MG TABLET PO PRN (09:12)
[2024-04-25] MEDS: PANTOPRAZOLE 40 MG TABLET PO SCH (12:51)
[2024-04-25 15:59] VITALS: BP 117/74; PULSE 73; TEMP 98.4
== END 2024-04-25 16:53 | DRG 280 ==
LOC: JER 14:04 → JERBED 16:24 → J8W 20:22
PROVIDERS: ADMIT Internal Medicine; ATTEND Internal Medicine
PROC: 0W9G3ZZ Drainage of Peritoneal Cavity, Percutaneous Approach (ICD-10-PCS; principal; 2024-04-17)
PROC: 0DJ08ZZ Inspection of Upper Intestinal Tract, Via Natural or Artificial Opening Endoscopic (ICD-10-PCS; 2024-04-23)
DX: K70.31 Alcoholic cirrhosis of liver with ascites (principal); I85.00 Esophageal varices without bleeding; K26.9 Duodenal ulcer, unspecified as acute or chronic, without hemorrhage or perforation; A53.0 Latent syphilis, unspecified as early or late; K76.6 Portal hypertension; F10.20 Alcohol dependence, uncomplicated; K31.89 Other diseases of stomach and duodenum; B18.1 Chronic viral hepatitis B without delta-agent; K76.82 Hepatic encephalopathy; N39.0 Urinary tract infection, site not specified; R41.82 Altered mental status, unspecified; N40.0 Benign prostatic hyperplasia without lower urinary tract symptoms; F31.9 Bipolar disorder, unspecified; K21.9 Gastro-esophageal reflux disease without esophagitis; B96.20 Unspecified Escherichia coli [E. coli] as the cause of diseases classified elsewhere; I44.7 Left bundle-branch block, unspecified
CPT/HCPCS: 36415; 70450-TC; 71045-TC-FY; 74177-TC; 76942-TC; 80048; 80053; 80307; 81003; 82042; 82140; 82150; 82465; 82607; 82728; 82945; 82962; 83540; 83550; 83615; 83735; 83986; 84157; 84443; 84478; 85025; 85610; 85730; 86593; 86704; 86780; 86803; 86850; 86900; 86901; 87070; 87075; 87086; 87102; 87116; 87186; 87205; 87206; 87210; 87340; 87517; 87635; 88108; 88305-TC; 93005; 93010; 97116-GP; 99285-25; P9047; Q9967

== ENCOUNTER 2024-04-25 19:14 | Emergency (ER) | payer OTHER ==
[2024-04-25 19:47] VITALS: BP 114/72; PULSE 68; RESP 18; TEMP 97.2; BMI 23.8
== END 2024-04-26 00:47 ==
LOC: JER 19:14
DX: M25.512 Pain in left shoulder (principal); R10.9 Unspecified abdominal pain; G89.29 Other chronic pain
CPT/HCPCS: 99283-25

== ENCOUNTER 2024-05-16 22:26 | Emergency (ER) | payer OTHER ==
[2024-05-16 22:48] VITALS: BMI 24.1
[2024-05-16 22:56] VITALS: BP 146/92; PULSE 103; RESP 18; TEMP 97.9
== END 2024-05-17 00:30 | disposition home or self-care (01) ==
LOC: FER 22:26
DX: F10.10 Alcohol abuse, uncomplicated (principal); R18.8 Other ascites; Y90.9 Presence of alcohol in blood, level not specified
CPT/HCPCS: 99281-25

== ENCOUNTER 2024-05-17 01:08 | Emergency (ER) | payer OTHER ==
[2024-05-17 01:24] VITALS: BP 139/97; PULSE 92; RESP 20; TEMP 98.6; BMI 29.0
== END 2024-05-17 06:28 | disposition home or self-care (01) ==
LOC: JER 01:08
DX: Z59.00 Homelessness unspecified (principal); F10.129 Alcohol abuse with intoxication, unspecified; Y90.9 Presence of alcohol in blood, level not specified
CPT/HCPCS: 99282-25

== ENCOUNTER 2024-06-04 18:05 | Emergency (ER) | payer OTHER ==
[2024-06-04 18:43] VITALS: TEMP 98.1; BMI 26.3
[2024-06-04] MEDS: IBUPROFEN 400 MG TABLET (FP) PO ONE (19:53)
[2024-06-04] MEDS ORDERED: FAMOTIDINE 20 MG TABLET ONE (20:19)
[2024-06-04] MEDS ORDERED: MAG HYDROX/AL HYDROX/SIMETH 30 ML UNIT-DOSE CUP ONE (20:19)
[2024-06-04] MEDS: FAMOTIDINE 20 MG TABLET PO ONE (20:22)
[2024-06-04] MEDS: MAG HYDROX/AL HYDROX/SIMETH 30 ML UNIT-DOSE CUP PO ONE (20:22)
[2024-06-04 20:40] LABS: BASO % 1.3 % (0-2.0); EOS % 2.4 % (0-4.5); HEMATOCRIT 33.5 % (35.4-49); MCHC 32.9 g/dl (32.0-35.9); MEAN CELL VOLUME 85.2 fl (80-96); NEUT % 65.3 % (42.8-82.8); PLATELET COUNT 196 10^3/uL (134-434); RBC 3.94 M/mm3 (4.00-5.60); WHITE BLOOD COUNT 5.1 K/mm3 (4.0-10.0)
[2024-06-04 21:05] LABS: POTASSIUM 3.4 mmol/L (3.5-5.1)
[2024-06-04 21:07] LABS: ALBUMIN 2.8 g/dl (3.4-5.0); BLOOD UREA NITROGEN 8.8 mg/dL (7-18); CALCIUM 8.9 mg/dL (8.5-10.1)
[2024-06-04 21:10] LABS: CREATININE 0.6 mg/dL (0.55-1.3)
[2024-06-04 21:12] LABS: TOT PROT 6.7 g/dl (6.4-8.2)
[2024-06-05] MEDS ORDERED: DOCUSATE SODIUM 100 MG CAPSULE (FP) PO ONE (02:55)
[2024-06-05] MEDS: DOCUSATE SODIUM 100 MG CAPSULE (FP) PO ONE (03:01)
[2024-06-05 06:33] VITALS: BP 138/80; PULSE 82; RESP 16
== END 2024-06-05 10:20 | disposition home or self-care (01) ==
LOC: JER 18:05
DX: K59.00 Constipation, unspecified (principal); K70.11 Alcoholic hepatitis with ascites; R10.31 Right lower quadrant pain; R18.8 Other ascites; Z20.822 Contact with and (suspected) exposure to COVID-19
CPT/HCPCS: 0241U-QW; 36415; 71045-TC-FY; 74177-TC; 80053; 83690; 85025; 86850; 86900; 86901; 93005; 93010; 99285-25

== ENCOUNTER 2024-08-09 19:08 | Emergency (ER) | payer OTHER ==
[2024-08-09 19:38] VITALS: BP 128/78; PULSE 93; RESP 18; TEMP 98.3; BMI 27.8
[2024-08-09 21:00] LABS: BASO % 0.6 % (0-2.0); EOS % 1.7 % (0-4.5); HEMATOCRIT 31.9 % (35.4-49); HEMOGLOBIN 10.5 GM/dL (11.7-16.9); LYMPH % 23.6 % (8-40); MCH 26.8 pg (25.7-33.7); MCHC 32.9 g/dl (32.0-35.9); MEAN CELL VOLUME 81.4 fl (80-96); MONO % 10.9 % (3.8-10.2); NEUT % 63.2 % (42.8-82.8); PLATELET COUNT 215 10^3/uL (134-434); RBC 3.92 M/mm3 (4.00-5.60); RDW 20.4 % (11.9-15.9); WHITE BLOOD COUNT 6.8 K/mm3 (4.0-10.0)
[2024-08-09 21:07] LABS: INR 1.26 (0.83-1.09); PROTHROMBIN TIME (PATIENT) 14.1 SEC (9.7-13.0)
[2024-08-09 21:10] LABS: ACTIVATED PTT 30.5 SECONDS (25.2-36.5)
[2024-08-09 21:31] LABS: POTASSIUM 3.6 mmol/L (3.5-5.1)
[2024-08-09 21:33] LABS: ALBUMIN 2.7 g/dl (3.4-5.0); BLOOD UREA NITROGEN 10.2 mg/dL (7-18); CALCIUM 8.6 mg/dL (8.5-10.1); MAGNESIUM 1.7 mg/dL (1.8-2.4)
[2024-08-09 21:36] LABS: CREATININE 0.7 mg/dL (0.55-1.3)
[2024-08-09 21:37] LABS: BILIRUBIN,TOTAL 1.2 mg/dL (0.2-1)
[2024-08-09 21:38] LABS: TOT PROT 6.8 g/dl (6.4-8.2)
[2024-08-09] MEDS ORDERED: MAGNESIUM 1GM/D5W - 1 GM/100 ML IVPB IVPB ONE (22:21)
[2024-08-09] MEDS: MAGNESIUM 1GM/D5W - 1 GM/100 ML IVPB IVPB ONE (22:33)
[2024-08-09] MEDS ORDERED: ACETAMINOPHEN 500 MG TABLET (FP) ONE (22:54)
[2024-08-09] MEDS: ACETAMINOPHEN 500 MG TABLET (FP) PO ONE (22:56)
== END 2024-08-09 23:33 | disposition home or self-care (01) ==
LOC: JER 19:08
PROC: 3E033GC Introduction of Other Therapeutic Substance into Peripheral Vein, Percutaneous Approach (ICD-10-PCS; principal; 2024-08-09)
DX: R53.81 Other malaise (principal)
CPT/HCPCS: 36415; 80053; 83690; 83735; 85025; 85610; 85730; 99284-25

== ENCOUNTER 2024-09-26 21:38 | Inpatient (IN) | payer OTHER ==
[2024-09-26 22:35] VITALS: BMI 22.1
[2024-09-26] MEDS ORDERED: BENZONATATE 200 MG CAPSULE PO PRN (22:51)
[2024-09-26] MEDS ORDERED: BENZOCAINE/MENTHOL (CHLORASEPTIC ) LOZENGE MM PRN (22:51)
[2024-09-26] MEDS ORDERED: DICYCLOMINE HCL 10 MG CAPSULE PO PRN (22:51)
[2024-09-26] MEDS ORDERED: NICOTINE POLACRILEX 2 MG GUM BUC PRN (22:51)
[2024-09-26] MEDS ORDERED: guaiFENesin 600 MG TABLET.ER (FP) PO PRN (22:51)
[2024-09-26] MEDS ORDERED: MAGNESIUM HYDROX 2400MG/30ML ORAL SUSPENSION 30 ML CUP PO PRN (22:51)
[2024-09-26] MEDS ORDERED: ONDANSETRON *ODT* 4 MG TABLET SL PRN (22:51)
[2024-09-26] MEDS ORDERED: ACETAMINOPHEN 325 MG TABLET (FP) PO PRN (22:51)
[2024-09-26] MEDS ORDERED: POLYETHYLENE GLYCOL (HEALTHYLAX) 3350 17 GM PACKET PO PRN (22:51)
[2024-09-26] MEDS ORDERED: LOPERAMIDE HCL 2 MG CAPSULE PO PRN (22:51)
[2024-09-26] MEDS ORDERED: IBUPROFEN 400 MG TABLET (FP) PO PRN (22:51)
[2024-09-26] MEDS ORDERED: MAG HYDROX/AL HYDROX/SIMETH 30 ML UNIT-DOSE CUP PO PRN (22:51)
[2024-09-26] MEDS ORDERED: NALOXONE (NARCAN) HCL 4 MG/0.1 ML SPRAY NS PRN (22:51)
[2024-09-26] MEDS ORDERED: hydrOXYzine PAMOATE 25 MG CAPSULE (FP) PO PRN (22:51)
[2024-09-26] MEDS ORDERED: BISMUTH SUBSALICYLATE 524 MG/30 ML PO PRN (22:51)
[2024-09-27] MEDS ORDERED: LORazepam 1 MG TABLET PO PRN (08:03)
[2024-09-27] MEDS: LORazepam 2 MG TABLET PO ONE (08:55)
[2024-09-27] MEDS: PRENATAL VITAMINS W/ FOLIC ACID TABLET (FP) PO SCH (10:23)
[2024-09-27] MEDS: TENOFOVIR ALAFENAMIDE 25 MG PO SCH (10:23)
[2024-09-27] MEDS: PANTOPRAZOLE 40 MG TABLET PO SCH (10:24)
[2024-09-27] MEDS: SPIRONOLACTONE 25 MG TABLET PO SCH (10:24)
[2024-09-27] MEDS: RIFAXIMIN 550 MG TABLET PO SCH (10:25)
[2024-09-27] MEDS: CARVEDILOL 3.125 MG TABLET (FP) PO SCH (10:25)
[2024-09-27] MEDS: TAMSULOSIN HCL 0.4 MG CAP PO SCH (10:26)
[2024-09-27] MEDS: FUROSEMIDE 40 MG TABLET (FP) PO SCH (10:26)
[2024-09-27] MEDS: LIDOCAINE 4% PATCH TP SCH (10:28)
[2024-09-27] MEDS: NICOTINE 21 MG/24 HOURS TOPICAL PATCH TD SCH (10:28)
[2024-09-27] MEDS: LACTULOSE 20 GM/30 ML UDC (FOR ORAL USE ONLY) PO SCH (10:29)
[2024-09-27] MEDS: LORazepam 2 MG TABLET PO SCH (11:45)
[2024-09-27 11:47] LABS: HEMOGLOBIN 9.5 GM/dL (11.7-16.9); MCH 26.6 pg (25.7-33.7); MCHC 32.6 g/dl (32.0-35.9); MEAN CELL VOLUME 81.6 fl (80-96); MEAN PLT VOLUME 6.4 fl (7.5-11.1); PLATELET COUNT 212 10^3/uL (134-434); RBC 3.56 M/mm3 (4.00-5.60); RDW 20.4 % (11.9-15.9); WHITE BLOOD COUNT 5.7 K/mm3 (4.0-10.0)
[2024-09-27 12:19] LABS: CHLORIDE 108 mmol/L (98-107); POTASSIUM 4.1 mmol/L (3.5-5.1); SODIUM 139 mmol/L (136-145)
[2024-09-27 12:28] LABS: ALBUMIN 2.8 g/dl (3.4-5.0); CALCIUM 8.7 mg/dL (8.5-10.1)
[2024-09-27 12:29] LABS: ANION GAP 5 mmol/L (4-13); CO2 26 mmol/L (21-32); GLUCOSE,RANDOM 98 mg/dL (74-106)
[2024-09-27 12:31] LABS: SGPT/ALT 36 U/L (13-61)
[2024-09-27 12:32] LABS: CREATININE 0.6 mg/dL (0.55-1.3); SGOT/AST 66 U/L (15-37)
[2024-09-27 12:33] LABS: BILIRUBIN,TOTAL 0.6 mg/dL (0.2-1); TOT PROT 6.3 g/dl (6.4-8.2)
[2024-09-27 12:34] LABS: ALK PHOS 223 U/L (45-117)
[2024-09-27] MEDS: ACAMPROSATE CALCIUM 333 MG TABLET.DR PO SCH (13:55)
[2024-09-27] MEDS: THIAMINE 100 MG TABLET PO SCH (22:42)
[2024-09-27] MEDS: LIDOCAINE PATCH REMOVAL MC SCH (22:42)
[2024-09-27] MEDS: MELATONIN 5 MG TABLETS PO SCH (22:42)
[2024-09-28] MEDS ORDERED: NALTREXONE HCL 50 MG TABLET PO ONE (10:00)
[2024-09-28] MEDS: METHOCARBAMOL 500 MG TABLET PO PRN (14:12)
[2024-09-28] MEDS: IBUPROFEN 600 MG TABLET (FP) PO PRN (17:36)
[2024-09-29] MEDS: LORazepam 1 MG TABLET PO SCH (05:50)
[2024-09-30] MEDS ORDERED: LORazepam 0.5 MG TABLET PO PRN
[2024-09-30] MEDS: LORazepam 0.5 MG TABLET PO SCH (05:55)
[2024-10-01] MEDS: LORazepam 0.5 MG TABLET PO ONE (06:00)
[2024-10-01 09:04] VITALS: BP 113/73; PULSE 86; RESP 16; TEMP 97.6
== END 2024-10-01 09:20 | disposition home or self-care (01) | DRG 774 ==
LOC: YASAS 21:38 → Y3N 22:33
PROVIDERS: ADMIT Allergy & Immunology; ATTEND Allergy & Immunology
PROC: HZ2ZZZZ Detoxification Services for Substance Abuse Treatment (ICD-10-PCS; principal; 2024-09-26)
DX: F10.230 Alcohol dependence with withdrawal, uncomplicated (principal); F14.20 Cocaine dependence, uncomplicated; F17.210 Nicotine dependence, cigarettes, uncomplicated; E72.20 Disorder of urea cycle metabolism, unspecified; I11.0 Hypertensive heart disease with heart failure; I50.9 Heart failure, unspecified; K70.30 Alcoholic cirrhosis of liver without ascites; K70.10 Alcoholic hepatitis without ascites; B18.1 Chronic viral hepatitis B without delta-agent; M41.9 Scoliosis, unspecified; N40.0 Benign prostatic hyperplasia without lower urinary tract symptoms; K21.9 Gastro-esophageal reflux disease without esophagitis; K86.1 Other chronic pancreatitis; R26.89 Other abnormalities of gait and mobility; Z99.89 Dependence on other enabling machines and devices
CPT/HCPCS: 36415; 71046-TC-FY; 80053; 80305; 80307; 82140; 85027; 86593; 86780; 93005; 93010